=== PATIENT | female | born 1935 | race Caucasian/White ===

== ENCOUNTER → 2016-05-14 | Outpatient (CLI) | payer OTHER, MEDICARE ==
[2016-02-29 17:13] VITALS: BP 133/71
[2016-05-14 09:58] LABS: ALANINE AMINOTRANSFERASE 85 Units/L (12-78); ALBUMIN 3.3 g/dL (3.4-5.0); ALKALINE PHOSPHATASE 246 Units/L (46-116); ASPARTATE AMINO TRANSFERASE 69 Units/L (15-37); BLOOD UREA NITROGEN 24 mg/dL (7-18); CALCIUM 8.1 mg/dL (8.5-10.1); CARBON DIOXIDE 29.1 mmol/L (21-32); CHLORIDE 106 mmol/L (98-107); COR CA(FOR HYPOALB) 8.7 mg/dL (8.5-10.1); GLUCOSE 106 mg/dL (65-99); SODIUM 141 mmol/L (136-145); TOTAL PROTEIN 6.9 g/dL (6.4-8.2); eGFR BLACK RACES 56 (>60); eGFR NON BLACK RACES 46 (>60)
[2016-05-14 10:01] LABS: BASOPHILS % (AUTO) 0.9 % (0.2-1.0); EOSINOPHILS # (AUTO) 0.1 x10^3/uL (0.0-0.2); EOSINOPHILS % (AUTO) 2.4 % (0.9-2.9); HEMATOCRIT 29.2 % (36.0-47.0); HEMOGLOBIN 9.5 g/dL (12.0-16.0); LYMPHOCYTES # (AUTO) 0.8 X10^3/uL (1.3-2.9); LYMPHOCYTES % (AUTO) 14.8 % (21.0-51.0); MEAN CORPUSCULAR HEMOGLOBIN 28.5 pg (27.0-34.0); MEAN CORPUSCULAR HGB CONC 32.5 g/dL (33.0-35.0); MEAN CORPUSCULAR VOLUME 87.7 fL (80.0-100.0); MEAN PLATELET VOLUME 7.6 fL (7.4-11.0); MONOCYTES # (AUTO) 0.5 x10^3/uL (0.3-0.8); MONOCYTES % (AUTO) 9.4 % (0.0-13.0); NEUTROPHILS # (AUTO) 3.8 x10^3/uL (2.2-4.8); NEUTROPHILS % (AUTO) 72.5 % (42.0-75.0); PLATELET COUNT 188 X10^3/uL (150.0-450.0); RED BLOOD COUNT 3.33 X10^6/uL (3.5-5.4); WHITE BLOOD COUNT 5.2 X10^3/uL (3.6-10.0)
--- NOTE | 2016-05-14 10:02 | RAD ---
HISTORY: Cough Study: Two views of the chest Comparison: 02/29/2016 Findings: Stable cardiomegaly, sternotomy changes, and dual-chamber pacemaker. There are interstitial opacitie s seen throughout the lungs, similar to prior exam. No pneumothorax or pleural effusion. There are c hronic degenerative changes of the bony thorax. IMPRESSION: 1. Stable cardiomegaly and chronic interstitial opacities throughout the lungs. Reported By:
== END ==
LOC: RAD 09:03
PROVIDERS: ATTEND Internal Medicine
DX: R05 Cough (principal); R09.89 Other specified symptoms and signs involving the circulatory and respiratory systems; R60.1 Generalized edema
CPT/HCPCS: 36415; 71020; 80053; 85025

== ENCOUNTER → 2016-06-01 | Outpatient (CLI) | payer OTHER, MEDICARE ==
[2016-02-29 17:13] VITALS: BP 133/71
== END ==
LOC: RT 16:19
PROVIDERS: ATTEND Internal Medicine
DX: R00.8 Other abnormalities of heart beat (principal)
CPT/HCPCS: 93005

== ENCOUNTER 2016-06-09 15:29 | Observation (INO) | payer OTHER, MEDICARE ==
[2016-06-09 18:08] VITALS: BMI 34.2
[2016-06-09] MEDS: D5W 1000 ML IV 1,000 ML IV SCH (18:14)
[2016-06-09] MEDS ORDERED: TUMS PO PRN (22:27)
[2016-06-09] MEDS ORDERED: DUONEB 0.5 MG/3 MG NEB PRN (22:33)
[2016-06-09] MEDS ORDERED: ZOFRAN TAB 4 MG PO PRN (22:39)
[2016-06-09] MEDS: LASIX PO SCH (23:10)
[2016-06-09] MEDS: NORCO 10/325 TAB PO SCH (23:10)
[2016-06-09] MEDS: REMERON PO SCH (23:11)
[2016-06-09] MEDS: PEPCID TAB 20 MG PO SCH (23:11)
[2016-06-09] MEDS: CRESTOR TAB 10 MG PO SCH (23:11)
[2016-06-09] MEDS: ATIVAN TAB 0.5 MG PO SCH (23:11)
[2016-06-09] MEDS: NAMENDA TAB 10 MG PO SCH (23:11)
[2016-06-09] MEDS: ELIQUIS PO SCH (23:11)
[2016-06-09] MEDS: ZOLOFT PO SCH (23:19)
[2016-06-10 05:18] LABS: BILIRUBIN,URINE NEGATIVE (NEGATIVE); BLOOD/HEMOGLOBIN,URINE 2+ (NEGATIVE); GLUCOSE, URINE NEGATIVE (NEGATIVE); KETONES,URINE NEGATIVE (NEGATIVE); LEUKOCYTE ESTERASE ,URINE 1+ (NEGATIVE); NITRITES,URINE NEGATIVE (NEGATIVE); PROTEIN,URINE 3+ (NEGATIVE); UROBILINOGEN,URINE NORMAL (NORMAL)
[2016-06-10 05:32] LABS: APPEARANCE,URINE CLEAR (CLEAR); BACTERIA,URINE TRACE /HPF (NEGATIVE); COLOR,URINE YELLOW (YELLOW); RBC,URINE 0-3 /HPF (NEGATIVE); SQUAMOUS EPITHELIAL CELL,UR FEW /HPF (NEGATIVE)
[2016-06-10 06:19] LABS: ALANINE AMINOTRANSFERASE 58 Units/L (12-78); ALBUMIN 3.2 g/dL (3.4-5.0); ALKALINE PHOSPHATASE 299 Units/L (46-116); ASPARTATE AMINO TRANSFERASE 64 Units/L (15-37); BLOOD UREA NITROGEN 23 mg/dL (7-18); CALCIUM 8.1 mg/dL (8.5-10.1); CARBON DIOXIDE 28.2 mmol/L (21-32); CHLORIDE 108 mmol/L (98-107); COR CA(FOR HYPOALB) 8.7 mg/dL (8.5-10.1); CREATININE 1.07 mg/dL (0.55-1.02); GLUCOSE 98 mg/dL (65-99); SODIUM 146 mmol/L (136-145); TOTAL PROTEIN 6.9 g/dL (6.4-8.2); eGFR BLACK RACES > 60 (>60); eGFR NON BLACK RACES 53 (>60)
[2016-06-10 06:25] LABS: BASOPHILS # (AUTO) 0.1 X10^3/uL (0.0-0.1); BASOPHILS % (AUTO) 2.2 % (0.2-1.0); EOSINOPHILS # (AUTO) 0.3 x10^3/uL (0.0-0.2); EOSINOPHILS % (AUTO) 5.6 % (0.9-2.9); HEMATOCRIT 34.1 % (36.0-47.0); HEMOGLOBIN 10.7 g/dL (12.0-16.0); LYMPHOCYTES # (AUTO) 1.1 X10^3/uL (1.3-2.9); LYMPHOCYTES % (AUTO) 20.9 % (21.0-51.0); MEAN CORPUSCULAR HEMOGLOBIN 28.2 pg (27.0-34.0); MEAN CORPUSCULAR HGB CONC 31.5 g/dL (33.0-35.0); MEAN CORPUSCULAR VOLUME 89.7 fL (80.0-100.0); MEAN PLATELET VOLUME 8.4 fL (7.4-11.0); MONOCYTES # (AUTO) 0.5 x10^3/uL (0.3-0.8); MONOCYTES % (AUTO) 10.1 % (0.0-13.0); NEUTROPHILS # (AUTO) 3.2 x10^3/uL (2.2-4.8); NEUTROPHILS % (AUTO) 61.2 % (42.0-75.0); PLATELET COUNT 201 X10^3/uL (150.0-450.0); RED CELL DISTRIBUTION WIDTH 18.5 % (11.6-16.5); WHITE BLOOD COUNT 5.2 X10^3/uL (3.6-10.0)
[2016-06-10] MEDS: D5W 1000 ML IV 1,000 ML IV SCH (06:30)
[2016-06-10] MEDS: CARDIZEM SR 120 MG PO SCH (09:08)
[2016-06-10] MEDS: PEPCID TAB 20 MG PO SCH ×2 (09:08→21:24)
[2016-06-10] MEDS: K-DUR TAB 20 MEQ PO SCH (09:09)
[2016-06-10] MEDS: ATIVAN TAB 0.5 MG PO SCH ×2 (09:09→21:24)
[2016-06-10] MEDS: NAMENDA TAB 10 MG PO SCH ×2 (09:09→21:24)
[2016-06-10] MEDS: ZOLOFT PO SCH ×2 (09:09→21:25)
[2016-06-10] MEDS: ELIQUIS PO SCH ×2 (09:09→21:24)
[2016-06-10] MEDS: LASIX PO SCH ×2 (09:09→21:24)
[2016-06-10] MEDS: TOPROL XL PO SCH (09:09)
--- NOTE | 2016-06-10 13:01 | DR.H&P ---
H&P - History & Physical for Day of: H&P Date: 06/09/16 - Chief Complaint Chief Complaint: HYPERNATREMIA - Allergies Allergies/Adverse Reactions: Allergies Allergy/AdvReac Type Severity Reaction Status Date / Time Ciprofloxacin [From Cipro] Allergy Verified 01/29/16 14:14 Clonazepam [From Klonopin] Allergy Verified 01/29/16 14:14 Gabapentin [From Neurontin] Allergy Verified 01/29/16 14:14 Methylprednisolone Allergy Verified 01/29/16 14:14 [From Medrol] Oxycodone [From Roxicet] Allergy Verified 01/29/16 14:14 Sulfa Drugs Allergy Verified 01/29/16 14:14 Morphine AdvReac Verified 01/29/16 14:14 - History of Present Illness History of Present Illness: THIS IS A 81 YEAR OLD FEMALE, WHO IS A PATIENT OF OURS. SHE RESIDES AT [facility]. PATIENT IS DIRECT ADMITTED TO HOSPITAL FOR HYPERNATREMIA. STAFF REPORTS PATIENT'S APPETITE IS POOR AND PATIENT ORAL INTAKE IS DECREASED. SHE WAS ALSO NOTED WITH ALTERED MENTAL STATUS AND CONFUSION. LABS OBTAINED TODAY AND SODIUM WAS NOTED TO BE CRITICALLY HIGH AT 150. CBC WNL EXCEPT: HGB 11.3. CMP WNL EXCEPT: SODIUM 150, CHL 111, BUN/CREAT 25/1.17, GFR 47, CALCIUM 8.4, AST 68, ALK PHOS 312. URINALYSIS WNL. WE WILL ADMIT PATIENT FOR FURTHER EVALUATION AND TREATMENT OF DEHYDRATION AND HYPERNATREMIA. WE WILL START IV FLUIDS: D5W AT 75MLS/HR, CONTINUE TO MONITOR NEURO STATUS, AND MONITOR LABS IN AM. - Past Medical History Past Medical History: Anemia, Anxiety, CHF, Coronary Artery Disease, Dementia, Depression, Dyslipidemia, GERD, Hypertension Additional Medical History: Cataracts, Atrial fibrillation, Alzheimers diease, Atrial Fibrillation, Sleep Apnea, Previous blood transfusion - Past Surgical History Surgical History: CABG/Valve Surgery, Hysterectomy, Joint Replacement, Ortho Surgery Additional Surgical History: Pacemaker - Family History Family Medical History: Diabetes Mellitus, Cancer, Hypertension - Social History Does patient currently use any type of tobacco product: No Have you used tobacco products in the last 12 months: No Type of Tobacco Use: None Does any household member use tobacco: No Alcohol Use: None Drug Use: Prescription Drugs - Medications Home Medications: Calcium Carbonate (Antacid) [Tums] 3 tabs PO Q4H PRN 01/29/16 Famotidine [PEPCID TAB 20 MG *] 1 tab PO BID 01/29/16 Furosemide 2 tab PO BID 01/29/16 Hydrocodone-Acet 10/325 mg [NORCO 10 MG/325 MG *] 1 tab PO HS 01/29/16 Lorazepam [ATIVAN 0.5 MG TAB *] 1 tab PO BID 01/29/16 Memantine HCl [Namenda] 1 tab PO BID 01/29/16 Metoprolol Succinate Ext Rel [TOPROL XL 50 MG *] 1 tab PO DAILY 01/29/16 Ondansetron HCl [ZOFRAN TAB 4 MG *] 1 tab PO Q4-6H PRN 01/29/16 Potassium Chloride [Potassium Chloride ER] 1 tab PO DAILY 01/29/16 Rosuvastatin Calcium [Crestor] 20 mg PO HS 01/29/16 Sertraline HCl [Zoloft 25 mg] 2 tab PO BID 01/29/16 Apixaban [Eliquis] 5 mg PO BID 06/09/16 Diltiazem HCl Coated Beads [Cardizem Cd (24 hr)] 120 mg PO Q24H 06/09/16 Ipratropium/Albuterol Nebule [DUONEB 0.5 MG/3 MG NEBULE *] 0.5 - 2.5 mg INH Q4HR PRN 06/09/16 Mirtazapine [REMERON 15 MG *] 15 mg PO HS 06/09/16 - Review of Systems Constitutional: Weakness, Malaise Eyes: No Symptoms Reported. denies: Pain, Vision Change, Conjunctivae Inflammation, Eyelid Inflammation, Redness ENT: No Symptoms Reported. denies: Ear Pain, Ear Discharge, Nose Pain, Nose Discharge, Nose Congestion, Mouth Pain, Mouth Swelling, Throat Pain, Throat Swelling Respiratory: No Symptoms Reported. denies: Cough, Shortness of Breath, Hemoptysis, SOB with Excertion, Pleuritic Pain, Sputum, Wheezing Cardiovascular: No Symptoms Reported. denies: Chest Pain, Palpitations, Orthopnea, Paroxysmal Noc. Dyspnea, Edema, Light Headedness Gastrointestinal: No Symptoms Reported. denies: Nausea, Vomiting, Abdominal Pain, Diarrhea, Constipation, Melena, Hematochezia Genitourinary: No Symptoms Reported. denies: Dysuria, Frequency, Incontinence, Hematuria, Retention Musculoskeletal: No Symptoms Reported. denies: Shoulder Pain, Arm Pain, Back Pain, Hand Pain, Leg Pain, Foot Pain, Neck Pain Skin: No Symptoms Reported. denies: Rash, Lesions, Jaundice, Bruising, Wound, Ecchymosis Neurological: Weakness, Confusion. denies: Numbness, Incoordination, Change in Speech, Seizures - Physical Exam Vital Signs: Temperature 99.2 F Pulse Rate [Right Brachial] 84 Respiratory Rate 22 Blood Pressure [Left Arm] 112/67 Blood Pressure [Right Arm] 131/78 Blood Pressure 133/71 O2 Sat by Pulse Oximetry 98 Oriented: Person Eyes: Normal. negative: Blurred Vision, Diplopia, Discharge, Pain, Redness, Photophobia Ear: Normal. negative: Swelling, Ecchymosis, Hemotypanum, Abrasion, Laceration Nose: Normal. negative: Injected, Discharge, Blood Throat: Dry. negative: Tonsillar Hypertrophy, Exudate Respiratory: Clear Throughout Cardiovascular: Irregular (Irreg, irreg). negative: Murmur, Edema Auscultation: Bowel Sounds: Decreased. negative: Bruit Palpation: Normal. negative: Spleen Enlarged, Liver Enlarged, Mass Pulsatile Tenderness: Normal. negative: Rebound, Guarding, Rigidity Skin: Decreased Turgur. negative: Diaphoresis, Wound, Bruising Musculoskeletal: Instability Psychiatric: Other (Confusion) Mood Description: Calm Affect: Normal Speech Pattern: Clear, Inappropriate - Assessment/Plan (1) Hypernatremia Status: Acute Plan: ADMIT PATIENT, START IV FLUIDS D5W AT 75MLS/HR, MONITOR LABS. (2) Dehydration Status: Acute Plan: ABOVE. (3) Altered mental state Qualifiers: Altered mental status type: disorientation Coma depth: C Coma timing: C Qualified Code(s): R41.0 - Disorientation, unspecified Status: Acute Plan: START IV FLUIDS, CONTINUE TO MONITOR. (4) CHF (congestive heart failure) Qualifiers: Congestive heart failure type: diastolic Congestive heart failure chronicity: chronic Qualified Code(s): I50.32 - Chronic diastolic (congestive ) heart failure Status: Chronic (5) Anxiety Status: Chronic (6) Arthritis Status: Chronic (7) COPD (chronic obstructive pulmonary disease) Qualifiers: COPD type: C Chronic bronchitis type: C Emphysema type: E Status: Chronic (8) Coronary artery disease Qualifiers: Coronary Disease-Associated Artery/Lesion type: [place] artery [place] vs. transplanted heart: [place] heart Associated angina: without angina Qualified Code(s): I25.10 - Atherosclerotic heart disease of [place] coronary artery without angina pectoris Status: Chronic (9) Dementia Qualifiers: Dementia type: Alzheimer's disease Alzheimer's disease onset: early-onset Dementia behavioral disturbance: without behavioral disturbance Qualified Code(s): G30.0 - Alzheimer's disease with early onset; F02.80 - Dementia in other diseases classified elsewhere without behavioral disturbance Status: Chronic (10) Depression Qualifiers: Depression Type: major depressive disorder Major depression recurrence: recurrent Active/Remission status: currently active Major depression episode severity: moderate Psychotic features: P Trimester: T Qualified Code(s): F33.1 - Major depressive disorder, recurrent, moderate Status: Chronic (11) GERD (gastroesophageal reflux disease) Qualifiers: Esophagitis presence: esophagitis presence not specified Qualified Code(s) : K21.9 - Gastro-esophageal reflux disease without esophagitis Status: Chronic (12) History of atrial fibrillation Status: Chronic (13) Hyperlipidemia Qualifiers: Hyperlipidemia type: mixed hyperlipidemia Qualified Code(s): E78.2 - Mixed hyperlipidemia Status: Chronic (14) Hypertension Qualifiers: Hypertension type: essential hypertension Qualified Code(s): I10 - Essential (primary) hypertension Status: Chronic (15) Pacemaker Status: Chronic
--- NOTE | 2016-06-10 13:25 | PCM.PROG ---
Progress Note - Progress Note for Day of Date: 06/10/16 - Subjective Subjective: PATIENT IS RESTING IN BED, DROWSY. SHE CONTINUES WITH INTERMITTENT CONFUSION. PATIENT CONTINUES ON IV FLUIDS FOR HYPERNATREMIA AND DEHYDRATION. SODIUM HAS IMPROVED FROM 150 TO 146. LUNGS ARE CLEAR ON AUSCULTATION. CBC WNL EXCEPT: H/H 10.7/34.1. CMP WNL EXCEPT: SODIUM 146, CHL 108, BUN/CREAT 23/1.07, GFR 53, CALCIUM 8.1, AST 64, ALK PHOS 299, ALBUMIN 3.2. WE WILL CONTINUE IV FLUIDS AND CONTINUE TO MONITOR LABS. WE WILL PLAN FOR DISCHARGE IN AM PROVIDING SODIUM IS WNL AND PATIENT IS STABLE. - Past Medical Family Social History Past Med/Fam/Surg Hx: No changes since H&P Allergies: Allergies Ciprofloxacin [From Cipro] Allergy (Verified 01/29/16 14:14) Clonazepam [From Klonopin] Allergy (Verified 01/29/16 14:14) Gabapentin [From Neurontin] Allergy (Verified 01/29/16 14:14) Methylprednisolone [From Medrol] Allergy (Verified 01/29/16 14:14) Oxycodone [From Roxicet] Allergy (Verified 01/29/16 14:14) Sulfa Drugs Allergy (Verified 01/29/16 14:14) Morphine Adverse Reaction (Verified 01/29/16 14:14) - Review of Systems ROS: No change since H&P - Vital Signs and I&O's Vital Signs: Temperature 99.2 F Pulse Rate [Right Brachial] 84 Respiratory Rate 22 Blood Pressure [Left Arm] 112/67 Blood Pressure [Right Arm] 131/78 Blood Pressure 133/71 O2 Sat by Pulse Oximetry 98 Intake and Output: Intake & Output 06/08/16 06/09/16 06/10/16 06/11/16 11:59 11:59 11:59 11:59 Intake Total 1312 Output Total 500 Balance 812 - Physical Exam Oriented: Person Eyes: Normal. negative: Blurred Vision, Diplopia, Discharge, Pain, Redness, Photophobia Ear: Normal. negative: Swelling, Ecchymosis, Hemotypanum, Abrasion, Laceration Nose: Normal. negative: Injected, Discharge, Blood Throat: Dry. negative: Tonsillar Hypertrophy, Exudate Respiratory: Normal Cardiovascular: Irregular (Irreg, irreg). negative: Murmur, Edema Auscultation: Bowel Sounds: Decreased. negative: Bruit Palpation: Normal. negative: Spleen Enlarged, Liver Enlarged, Mass Pulsatile Tenderness: Normal. negative: Rebound, Guarding, Rigidity Skin: Decreased Turgur. negative: Diaphoresis, Wound, Bruising Musculoskeletal: Instability Psychiatric: Other (Confusion) Mood Description: Calm Affect: Normal Speech Pattern: Clear, Inappropriate - Laboratory and Diagnostics Result Diagrams: 06/10/16 05:00 06/10/16 05:00 Labs: Laboratory WBC 5.2 X10^3/uL (3.6-10.0) 06/10/16 05:00 RBC 3.80 X10^6/uL (3.5-5.4) 06/10/16 05:00 Hgb 10.7 g/dL (12.0-16.0) L 06/10/16 05:00 Hct 34.1 % (36.0-47.0) L 06/10/16 05:00 MCV 89.7 fL (80.0-100.0) 06/10/16 05:00 MCH 28.2 pg (27.0-34.0) 06/10/16 05:00 MCHC 31.5 g/dL (33.0-35.0) L 06/10/16 05:00 RDW 18.5 % (11.6-16.5) H 06/10/16 05:00 Plt Count 201 X10^3/uL (150.0-450.0) 06/10/16 05:00 MPV 8.4 fL (7.4-11.0) 06/10/16 05:00 Neut % 61.2 % (42.0-75.0) 06/10/16 05:00 Lymph % 20.9 % (21.0-51.0) L 06/10/16 05:00 [place]mullen % 10.1 % (0.0-13.0) 06/10/16 05:00 Eos % 5.6 % (0.9-2.9) H 06/10/16 05:00 Baso % 2.2 % (0.2-1.0) H 06/10/16 05:00 Neut # 3.2 x10^3/uL (2.2-4.8) 06/10/16 05:00 Lymph # 1.1 X10^3/uL (1.3-2.9) L 06/10/16 05:00 [place]mullen # 0.5 x10^3/uL (0.3-0.8) 06/10/16 05:00 Eos # 0.3 x10^3/uL (0.0-0.2) H 06/10/16 05:00 Baso # 0.1 X10^3/uL (0.0-0.1) 06/10/16 05:00 Absolute Nucleated RBC 0.1 /100WBC 06/10/16 05:00 Sodium 146 mmol/L (136-145) H 06/10/16 05:00 Corrected Sodium TNP 06/10/16 05:00 Potassium 3.5 mmol/L (3.5-5.1) 06/10/16 05:00 Chloride 108 mmol/L (98-107) H 06/10/16 05:00 Carbon Dioxide 28.2 mmol/L (21-32) 06/10/16 05:00 BUN 23 mg/dL (7-18) H 06/10/16 05:00 Creatinine 1.07 mg/dL (0.55-1.02) H 06/10/16 05:00 Est GFR (MDRD) Af Amer > 60 (>60) 06/10/16 05:00 Est GFR (MDRD) Non-Af 53 (>60) L 06/10/16 05:00 Glucose 98 mg/dL (65-99) 06/10/16 05:00 Calcium 8.1 mg/dL (8.5-10.1) L 06/10/16 05:00 Corrected Calcium 8.7 mg/dL (8.5-10.1) 06/10/16 05:00 Total Bilirubin 0.80 mg/dL (0.2-1.0) 06/10/16 05:00 AST 64 Units/L (15-37) H 06/10/16 05:00 ALT 58 Units/L (12-78) 06/10/16 05:00 Alkaline Phosphatase 299 Units/L (46-116) H 06/10/16 05:00 Total Protein 6.9 g/dL (6.4-8.2) 06/10/16 05:00 Albumin 3.2 g/dL (3.4-5.0) L 06/10/16 05:00 Globulin 3.7 g/dL (2.5-4.5) 06/10/16 05:00 Albumin/Globulin Ratio 0.9 Ratio (1.1-2.1) L 06/10/16 05:00 Specimen Type Clean catch urine 06/10/16 04:52 Urine Color Yellow (YELLOW) 06/10/16 04:52 Urine Appearance Clear (CLEAR) 06/10/16 04:52 Urine pH 6.0 (5.0 - 8.0) 06/10/16 04:52 Ur Specific [place] 1.015 (1.000-1.030) 06/10/16 04:52 Urine Protein 3+ (NEGATIVE) 06/10/16 04:52 Urine Glucose (UA) Negative (NEGATIVE) 06/10/16 04:52 Urine Ketones Negative (NEGATIVE) 06/10/16 04:52 Urine Occult Blood 2+ (NEGATIVE) 06/10/16 04:52 Urine Nitrite Negative (NEGATIVE) 06/10/16 04:52 Urine Bilirubin Negative (NEGATIVE) 06/10/16 04:52 Urine Urobilinogen Normal (NORMAL) 06/10/16 04:52 Ur Leukocyte Esterase 1+ (NEGATIVE) 06/10/16 04:52 Urine RBC 0-3 /HPF (NEGATIVE) 06/10/16 04:52 Urine WBC 3-5 /HPF (NEGATIVE) 06/10/16 04:52 Ur Squamous Epith Cells Few /HPF (NEGATIVE) 06/10/16 04:52 Urine Bacteria Trace /HPF (NEGATIVE) 06/10/16 04:52 Ur Culture Indicated? No/not indicated 06/10/16 04:52 - Plan (1) Hypernatremia Status: Acute Plan: CONTINUE IV FLUIDS D5W AT 75MLS/HR, MONITOR LABS. (2) Dehydration Status: Acute Plan: ABOVE. (3) Altered mental state Status: Acute Qualifiers: Altered mental status type: disorientation Coma depth: C Coma timing: C Qualified Code(s): R41.0 - Disorientation, unspecified Plan: CONTINUE IV FLUIDS, CONTINUE TO MONITOR. (4) CHF (congestive heart failure) Status: Chronic Qualifiers: Congestive heart failure type: diastolic Congestive heart failure chronicity: chronic Qualified Code(s): I50.32 - Chronic diastolic (congestive ) heart failure (5) Anxiety Status: Chronic (6) Arthritis Status: Chronic (7) COPD (chronic obstructive pulmonary disease) Status: Chronic Qualifiers: COPD type: C Chronic bronchitis type: C Emphysema type: E (8) Coronary artery disease Status: Chronic Qualifiers: Coronary Disease-Associated Artery/Lesion type: [place] artery [place] vs. transplanted heart: [place] heart Associated angina: without angina Qualified Code(s): I25.10 - Atherosclerotic heart disease of [place] coronary artery without angina pectoris (9) Dementia Status: Chronic Qualifiers: Dementia type: Alzheimer's disease Alzheimer's disease onset: early-onset Dementia behavioral disturbance: without behavioral disturbance Qualified Code(s): G30.0 - Alzheimer's disease with early onset; F02.80 - Dementia in other diseases classified elsewhere without behavioral disturbance (10) Depression Status: Chronic Qualifiers: Depression Type: major depressive disorder Major depression recurrence: recurrent Active/Remission status: currently active Major depression episode severity: moderate Psychotic features: P Trimester: T Qualified Code(s): F33.1 - Major depressive disorder, recurrent, moderate (11) GERD (gastroesophageal reflux disease) Status: Chronic Qualifiers: Esophagitis presence: esophagitis presence not specified Qualified Code(s) : K21.9 - Gastro-esophageal reflux disease without esophagitis (12) History of atrial fibrillation Status: Chronic (13) Hyperlipidemia Status: Chronic Qualifiers: Hyperlipidemia type: mixed hyperlipidemia Qualified Code(s): E78.2 - Mixed hyperlipidemia (14) Hypertension Status: Chronic Qualifiers: Hypertension type: essential hypertension Qualified Code(s): I10 - Essential (primary) hypertension (15) Pacemaker Status: Chronic
[2016-06-10] MEDS: REMERON PO SCH (21:24)
[2016-06-10] MEDS: CRESTOR TAB 10 MG PO SCH (21:25)
[2016-06-10] MEDS: NORCO 10/325 TAB PO SCH (21:25)
[2016-06-11] MEDS: D5W 1000 ML IV 1,000 ML IV SCH ×2 (05:13→09:43)
[2016-06-11 06:15] LABS: BASOPHILS # (AUTO) 0.1 X10^3/uL (0.0-0.1); BASOPHILS % (AUTO) 1.5 % (0.2-1.0); EOSINOPHILS # (AUTO) 0.4 x10^3/uL (0.0-0.2); EOSINOPHILS % (AUTO) 6.9 % (0.9-2.9); HEMATOCRIT 34.2 % (36.0-47.0); LYMPHOCYTES # (AUTO) 0.7 X10^3/uL (1.3-2.9); LYMPHOCYTES % (AUTO) 13.8 % (21.0-51.0); MEAN CORPUSCULAR HEMOGLOBIN 28.6 pg (27.0-34.0); MEAN CORPUSCULAR VOLUME 89.4 fL (80.0-100.0); MEAN PLATELET VOLUME 8.2 fL (7.4-11.0); MONOCYTES # (AUTO) 0.5 x10^3/uL (0.3-0.8); MONOCYTES % (AUTO) 10.3 % (0.0-13.0); NEUTROPHILS # (AUTO) 3.6 x10^3/uL (2.2-4.8); NEUTROPHILS % (AUTO) 67.5 % (42.0-75.0); PLATELET COUNT 219 X10^3/uL (150.0-450.0); RED BLOOD COUNT 3.83 X10^6/uL (3.5-5.4); WHITE BLOOD COUNT 5.3 X10^3/uL (3.6-10.0)
[2016-06-11 06:34] LABS: ALANINE AMINOTRANSFERASE 54 Units/L (12-78); ALBUMIN 3.3 g/dL (3.4-5.0); ALKALINE PHOSPHATASE 299 Units/L (46-116); ASPARTATE AMINO TRANSFERASE 48 Units/L (15-37); BLOOD UREA NITROGEN 17 mg/dL (7-18); CALCIUM 7.9 mg/dL (8.5-10.1); CARBON DIOXIDE 26.4 mmol/L (21-32); CHLORIDE 104 mmol/L (98-107); COR CA(FOR HYPOALB) 8.5 mg/dL (8.5-10.1); CREATININE 1.06 mg/dL (0.55-1.02); GLUCOSE 97 mg/dL (65-99); SODIUM 141 mmol/L (136-145); TOTAL PROTEIN 7.1 g/dL (6.4-8.2); eGFR BLACK RACES > 60 (>60); eGFR NON BLACK RACES 53 (>60)
[2016-06-11] MEDS ORDERED: K-DUR TAB 20 MEQ PO PRN (07:24)
[2016-06-11] MEDS ORDERED: POTASSIUM CHLORIDE LIQ 20 MEQ UDC PO PRN (07:24)
[2016-06-11] MEDS ORDERED: K-RIDER 10 MEQ/NS 100 ML 10 MEQ/100 ML BAG IV PRN (07:24)
[2016-06-11] MEDS ORDERED: K-LYTE EFFERVESCENT PO PRN (07:24)
--- NOTE | 2016-06-11 08:34 | RAD ---
HISTORY: Hypernatremia Study: Single view of the chest. Comparison: 05/14/2016 Findings: Cardiomegaly. Possible left upper lobe pulmonary nodule not clearly seen on priors. No double focal consolidations or pleural effusions.. Osseous structures demonstrate no acute abnormality. IMPRESSION: 1. Question of left upper lobe spiculated pulmonary nodule . Recommend CT of the chest with contras t. Reported By:
[2016-06-11 09:09] VITALS: BP 137/53
[2016-06-11] MEDS: K-DUR TAB 20 MEQ PO SCH (09:32)
[2016-06-11] MEDS: NAMENDA TAB 10 MG PO SCH (09:32)
[2016-06-11] MEDS: ATIVAN TAB 0.5 MG PO SCH (09:32)
[2016-06-11] MEDS: PEPCID TAB 20 MG PO SCH (09:32)
[2016-06-11] MEDS: ELIQUIS PO SCH (09:34)
[2016-06-11] MEDS: TOPROL XL PO SCH (09:34)
[2016-06-11] MEDS: LASIX PO SCH (09:34)
[2016-06-11] MEDS: ZOLOFT PO SCH (09:34)
[2016-06-11] MEDS: CARDIZEM SR 120 MG PO SCH (09:42)
== END 2016-06-11 11:45 ==
LOC: UNDOADMOB 15:29 → ICU 15:29
PROVIDERS: ADMIT Internal Medicine; ATTEND Internal Medicine
DX: E87.0 Hyperosmolality and hypernatremia (principal); R41.0 Disorientation, unspecified; E86.0 Dehydration; I50.32 Chronic diastolic (congestive) heart failure; E87.5 Hyperkalemia; D64.89 Other specified anemias; F41.8 Other specified anxiety disorders; I25.10 Atherosclerotic heart disease of native coronary artery without angina pectoris; F32.89 Other specified depressive episodes; E78.2 Mixed hyperlipidemia; K21.9 Gastro-esophageal reflux disease without esophagitis; I10 Essential (primary) hypertension; M13.89 Other specified arthritis, multiple sites; J44.9 Chronic obstructive pulmonary disease, unspecified; G30.0 Alzheimer's disease with early onset; F02.80 Dementia in other diseases classified elsewhere, unspecified severity, without behavioral disturbance, psychotic disturbance, mood disturbance, and anxiety; F33.1 Major depressive disorder, recurrent, moderate; Z95.0 Presence of cardiac pacemaker; R94.4 Abnormal results of kidney function studies
CPT/HCPCS: 36415; 71010; 80053; 81001; 85025; A4216; A4222; G0378

== ENCOUNTER → 2016-06-14 | Outpatient (CLI) | payer OTHER, MEDICARE ==
[2016-06-11 09:09] VITALS: BP 137/53
[~2016-06-14] MED LIST: NS 100 ML IV 100 ML IV ONE
--- NOTE | 2016-06-14 13:38 | CT ---
HISTORY: Left upper lobe nodule Study: CT chest with contrast Comparison: Plain film June 11, 2016 Technique: Axial post-contrast images with coronal and sagittal reformats. Dose reduction procedures were use with MA/kv adjusted for body size. Findings: Examination of the mediastinum demonstrated no enlarged mediastinal or hilar adenopathy. Nonenlarged mediastinal nodes are present. Heart is enlarged. There is a small right pleural effusion present. Additionally there is reflux of contrast into the hepatic veins which can be seen in congestive hear t failure. No chest wall or axillary abnormality is identified. Those portions of the upper abdomina l organs visualized were within normal limits. Examination of the lung wilson demonstrated diffuse b ilateral ground-glass infiltrates which could be due to edema or infection. There do appear to be so me Jin's B lines present making edema the most likely diagnosis. A left upper lobe nodule is not confirmed. No nodules areas of consolidation masses peribronchial thickening or bronchiectasis is id entified. IMPRESSION: Left upper lobe nodule not confirmed Cardiomegaly with congestive heart failure as evidenced by interstitial edema and bilateral ground-g lass infiltrates most likely related to congestive heart failure Small right pleural effusion Reported By:
== END ==
LOC: RAD 10:21
PROVIDERS: ATTEND Internal Medicine
DX: R91.1 Solitary pulmonary nodule (principal)
CPT/HCPCS: 36415; 71260; 80053; 85025; A4222

== ENCOUNTER 2016-10-17 19:22 | Emergency (ER) | payer OTHER, MEDICARE ==
[2016-10-17 19:31] VITALS: BP 134/80; BMI 32.9
--- NOTE | 2016-10-17 20:32 | CT ---
Head CT without contrast Indication: Head injury Comparison: January 29, 2016 Technique: Helical images of the head were obtained without the use of intravenous contrast. Findings: There is a small subgaleal hematoma to the right posterior scalp without laceration or foreign body. No acute calvarial fracture is seen. The paranasal sinuses and mastoid air cells are clear. There is no CT evidence of acute infarct, hemorrhage, hydrocephalus, or significant mass effect. No extra-axial fluid collection is seen. There is diffuse age-appropriate brain atrophy with commensura te enlargement of the CSF spaces and associated chronic microangiopathic change. Atherosclerotic lit cifications of the intracranial vasculature persists. Bilateral lens extractions are again noted. Impression: Small subgaleal hematoma of the right posterior scalp. No acute intracranial abnormality or acute fr acture is identified. Reported By:
--- NOTE | 2016-10-17 20:36 | CT ---
Cervical spine CT without contrast Indication: Fall. Comparison: November 03, 2015 Technique: Helical images of the cervical spine were obtained without the use of intravenous contras t. Findings: There is straightening of the normal cervical lordosis with otherwise normal cervical spine alignmen t. Vertebral body heights are preserved and no cervical spine fracture is seen. There is advanced os teopenia and postsurgical change noted of C5-6 are there is a least partial bony ankylosis at these levels. The occipital condyles are intact. There is no asymmetric facet joint or disc space widening to suggest ligamentous injury. There is no prevertebral soft tissue swelling. There is mild moderat e multilevel discogenic degenerative change and degenerative facet arthropathy throughout the cervic al spine. The spinal canal is grossly patent. The visualized cervical soft tissues are unremarkable. The visualized lung apices demonstrate bilateral air trapping with right upper lobe pleural and par enchymal scarring with atelectasis. Impression: 1. No CT evidence of acute cervical spine injury. 2. cervical spondylosis and other chronic findings as above. Reported By:
--- NOTE | 2016-10-17 20:41 | DR.GENAD ---
HPI - PCP Primary Care Physician: triny - Complaint/Symptoms Chief Complaint Doctors Comments: history as stated. 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 [facility] - Source History Provided: Detention - Mode of Arrival Mode of Arrival: Wheelchair - Timing Onset of Chief Complaint: 10/17/16 PMH - PMH Past Medical History: Yes Past Medical History: Anemia, Anxiety, CHF, Coronary Artery Disease, Dementia, Depression, Dyslipidemia, GERD, Hypertension Past Surgical History: Yes Surgical History: CABG/Valve Surgery, Hysterectomy, Joint Replacement, Ortho Surgery - Family History History of Family Medical Conditions: Yes Family Medical History: Diabetes Mellitus, Cancer, Hypertension - Social History Does patient currently use any type of tobacco product: No Have you used tobacco products in the last 12 months: No Type of Tobacco Use: None Does any household member use tobacco: No Alcohol Use: None Do you use any recreational Drugs:: No Lives With: Other Lives Where: Detention - infectious screening Have you traveled outside the country in the last 6 months?: No Isolation: Standard ROS - Review of Systems Constitutional: negative: Diaphoresis Eyes: No Symptoms Reported ENTM: No Symptoms Reported. negative: Ear Pain, Ear Discharge, Nose Discharge Respiratoy: No Symptoms Reported Cardiovascular: No Symptoms Reported Gastrointestinal/Abdominal: No Symptoms Reported Genitourinary: No Symptoms Reported Neurological: See HPI. negative: Seizure Musculoskeletal: Other (Right occipital hematoma) Integumentary: Bruises (scalp) Hematologic/Lymphatic: No Symptoms Reported Endocrine: No Symptoms Reported Psychiatric: No Symptoms Reported All Other Systems: Reviewed and Negative PE - Vital Signs Vitals: Temperature 99.4 F Pulse Rate 94 Respiratory Rate 22 Blood Pressure [Left Arm] 137/53 Blood Pressure [Right Arm] 120/72 Blood Pressure 134/80 O2 Sat by Pulse Oximetry 93 - General General Appearance: In No Apparent Distress - Head Head Exam: Other (right occipital area with a smooth hematoms w/o bleeding or skin abrasion) - Eyes Eye exam: PERRL, EOMI - ENT ENT Exam: Normal Exam External Ear Exam: Normal External Inspection TM/Canal Exam: Bilateral Normal Nose Exam: Normal Nose Exam Mouth Exam: Normal Inspection Throat Exam: Normal Inspection - Neck Neck Exam: Normal Inspection, Full ROM - Chest Chest Inspection: Normal Inspection - Respiratory Respiratory Exam: Normal Lung Sounds Bilat Respiratory Exam: Bilateral Clear to Auscultation - Cardiovascular Cardiovascular Exam: Regular Rate, Normal Rhythm - Abdominal Exam Abdominal Exam: Normal Inspection Abdominal Tenderness: negative: RUQ, RLQ, LUQ, LLQ, Epigastrium, Suprapubic, Diffuse, Mild, Moderate, Severe, Other - Extremities Extremities Exam: Normal Inspection - Back Back Exam: Normal Inspection - Neurologic Neurological Exam: Oriented X3 - Psychiatric Psychiatric Exam: Flat Affect - Skin Skin Exam: Warm, Dry, Intact ROR - XRAY XRAY Interpreted by: Radiologist (CT Head:Small subgaleal hematoma of the right posterior scalp. No acute intracranial abnormality or acute fracture is identified. Neck:No CT evidence of acute cervical spine injury, cervical spondylosis and other chronic finindgs:advanced osteopenia and postsurgical change noted of C5-6 are there is atleast partial bony ankylosis at these levels. The occipital condyles are intact. There is no asymmetric facet joint or disc space widening to suggest ligamentous injury. There is no prevertebral soft tissue swelling. There is mild moderate multilevel discogenic degenerative change and degenerative facet arthropathy throughout the cervical spine. The spinal canal is grossly patent...No CT evidence of acute cervical injury, ) - Diagnosis Discharge Problem: left posterior scalp hematoma Fall from wheelchair Qualifiers: Encounter type: initial encounter Qualified Code(s): W05.0XXA - Fall from non- moving wheelchair, initial encounter - Discharge Plan Disposition: 01 HOME, SELF-CARE Condition: Stable - Follow ups/Referrals Follow ups/Referrals: Gomez Tobias [Primary Care Provider] - 3 days - Instructions Instructions: Head Injury, Adult, [id number] Additional Instructions: NEURO CHECKS EVERY 2 HOURS FOR THE NEXT 12 HOURS
== END 2016-10-17 20:58 | disposition home or self-care (01) ==
LOC: ER 19:22
DX: S00.03XA Contusion of scalp, initial encounter (principal); M47.892 Other spondylosis, cervical region; W05.0XXA Fall from non-moving wheelchair, initial encounter; Y92.9 Unspecified place or not applicable; R51 Headache; R06.02 Shortness of breath; I50.9 Heart failure, unspecified
CPT/HCPCS: 36415; 70450; 72125; 80053; 83880; 85025; 99282; 99283

== ENCOUNTER 2016-11-06 08:49 | Observation (INO) | payer OTHER, MEDICARE ==
--- NOTE | 2016-11-06 09:37 | DR.GENAD ---
HPI - PCP Primary Care Physician: AMALIA MCCONNELL - Complaint/Symptoms Chief Complaint Doctors Comments: Patient fell yesterday and they x-rayed her right wrist and said it was not broken but she is still guarding her right arm and hand and is complaining of right hip and upper right side pain as related by the group home staff. prison relates that the patient's speech is hard to understand and she has been more difficult to get orientated. Patient yells when right arm is moved. She sets up in bed but is not complaining of pain unless right arm and ribs are palpated. Chief Complaint:: TONH STATES " PT HAD A FALL YESTERDAY AND PT RIGHT WRIST AND AN XRAY PERFORMED AND STAFF STATES PT IS C/O RIGHT UPPER LUMBAR AND RIGHT HIP AND INCREASED CONFUSION AND STAFF IS UNABLE TO ORIENT HER AND THAT SHE IS SWELLING". Self Treatment fo Chief Complaint: PT IS GUARDING HER RIGHT ARM... AND HER SPEECH IS UNCLEAR AT TIMES,, - Nurses notes reviewed Nurses Notes Review: Yes - Source History Provided: Patient, [facility] - Mode of Arrival Mode of Arrival: Stretcher - Timing Onset of Chief Complaint: 11/05/16 Came on: Gradually - Duration Duration: Constant How lon Duration: Days - Location Location: right arm and right ribs and hip - Severity Severity: Moderate, Severe - Modifying Factors Worsens:: movement Improves:: nothing PMH - PMH Past Medical History: Yes Past Medical History: Anemia, Anxiety, CHF, Coronary Artery Disease, Dementia, Depression, Dyslipidemia, GERD, Hypertension Past Surgical History: Yes Surgical History: CABG/Valve Surgery, Hysterectomy, Joint Replacement, Ortho Surgery - Family History History of Family Medical Conditions: Yes Family Medical History: Diabetes Mellitus, Cancer, Hypertension - Social History Does patient currently use any type of tobacco product: No Have you used tobacco products in the last 12 months: No Type of Tobacco Use: None Does any household member use tobacco: No Alcohol Use: None Do you use any recreational Drugs:: No Lives Where: [facility] - infectious screening In the last 2 months have you had wt loss of >10#?: NO Have you had fever, night sweats or hemotysis?: No Have you traveled outside the country in the last 6 months?: No Isolation: Standard ROS - Review of Systems Constitutional: No Symptoms Reported. negative: See HPI, Chills, Diaphoresis, Fever, Malaise, Weakness, Irritable, Fatigue, Loss of Appetite, Other Eyes: No Symptoms Reported ENTM: No Symptoms Reported Respiratoy: No Symptoms Reported Cardiovascular: No Symptoms Reported. negative: See HPI, Chest Pain, Edema, Palpitations, Syncope, Cyanosis, Skin Mottling, Other Gastrointestinal/Abdominal: No Symptoms Reported. negative: See HPI, Abdominal Pain, Constipation, Diarrhea, Nausea, Vomiting, Food Intolerance, Other Genitourinary: No Symptoms Reported Neurological: No Symptoms Reported Musculoskeletal: Right, Arm, Wrist, Hip (right arm, hip and rib pain) Integumentary: No Symptoms Reported, Bruises (right forearm and wrist). negative: See HPI, Change in Color, Change in Hair/Nails, Dryness, Lesions, Lumps, Rash, Itching, Wound, Juandice, Other Hematologic/Lymphatic: No Symptoms Reported Endocrine: No Symptoms Reported Psychiatric: No Symptoms Reported PE - Vital Signs Vitals: Temperature 97.9 F Pulse Rate [Left Brachial] 79 Pulse Rate 110 Respiratory Rate 16 Blood Pressure [Left Arm] 163/81 Blood Pressure [Right Arm] 135/77 Blood Pressure 136/64 O2 Sat by Pulse Oximetry 100 - General Limitations: Altered Mental Status General Appearance: Lethargic, In Distress (mild) - Head Head Exam: Normal Inspection, Atraumatic, Normocephalic - Eyes Eye exam: Normal Appearance, PERRL, EOMI. negative: Scleral Icterus, Conjunctival Injection, Nystagmus, Miosis, Mydrasis, Periorbital Swelling, Periorbital Tenderness, Other - ENT ENT Exam: Normal Exam, Normal Oropharynx, Normal External Ear Exam, Mucous Membranes Moist, TM's Normal Bilaterally External Ear Exam: Normal External Inspection TM/Canal Exam: Bilateral Normal Nose Exam: Normal Nose Exam. negative: Sinus Tenderness, Nasal Deviation, Crepitus, Septal Hematoma, Laceration, Abrasion, Other Mouth Exam: Normal Inspection. negative: Drooling, Trismus, Lip Swelling, Tongue Elevation, Tongue Swelling, Laceration, Other Throat Exam: Normal Inspection. negative: Tonsillar Erythema (dental caries), Tonsillomegaly, Tonsillar Exudate, R Peritonsillar Mass, L Peritonsillar Mass, Muffled Voice, Other - Neck Neck Exam: Normal Inspection, Full ROM, Trachea Midline - Chest Chest Inspection: Normal Inspection, Symmetric Chest Wall Rise, Tenderness ( right lateral ribs tender on palpation) - Respiratory Respiratory Exam: Normal Lung Sounds Bilat Respiratory Exam: Bilateral Clear to Auscultation - Cardiovascular Cardiovascular Exam: Regular Rate, Normal Rhythm, Normal Heart Sounds - Abdominal Exam Abdominal Exam: Normal Inspection, Normal Bowel Sounds, Soft. negative: Distention, Tenderness, Guarding, Rebound, Rigidity, Dimnished Bowel Sounds, Hyperactive Bowel Sounds, Hypoactive Bowel Sounds, Organomegaly, Trauma, Incision, Ascites, Mass, Bruit, Pulsatile Mass, Hernia, Other Abdominal Tenderness: negative: RUQ, RLQ, LUQ, LLQ, Epigastrium, Suprapubic, Diffuse, Mild, Moderate, Severe, Other - Extremities Extremities Exam: Normal Inspection, Full ROM, Tenderness (right forearm, right hip and rib tender on palpation), Normal Capillary Refill - Back Back Exam: Normal Inspection, Full ROM. negative: Tenderness, (R) CVA Tenderness, (L) CVA Tenderness, Muscle Spasm, Paraspinal Tenderness, Vertebral Tenderness, Rashes, (R) Sciatic Notch Tenderness, (L) Sciatic Notch Tendern, (R ) Straight Leg Raise, (L) Straight Leg Raise, Other - Neurologic Neurological Exam: Alert, Reflexes Normal. negative: Oriented X3 (patient responds to pain), CN II-XII Intact (unable to evaluate), Normal Gait (gait not tested) - Psychiatric Psychiatric Exam: Normal Affect, Normal Mood - Skin Skin Exam: Warm, Dry, Intact, Normal Color Course - Consultation Called: 16:48 Call Returned: 16:48 (Dr. Terry to admit) - Education/Counseling Education/Counseling: Family Educated On: Treatment, Diagnosis, Needs for Follow Up ROR - Labs Reviewed Laboratory Results Reviewed?: Yes (all labs and x-ray results reviewed and discussed with patient.) Result Diagrams: 11/06/16 09:52 11/06/16 09:52 Laboratory: WBC 9.4 X10^3/uL (3.6-10.0) 11/06/16 09:52 RBC 3.79 X10^6/uL (3.5-5.4) 11/06/16 09:52 Hgb 10.6 g/dL (12.0-16.0) L 11/06/16 09:52 Hct 32.9 % (36.0-47.0) L 11/06/16 09:52 MCV 86.7 fL (80.0-100.0) 11/06/16 09:52 MCH 28.0 pg (27.0-34.0) 11/06/16 09:52 MCHC 32.3 g/dL (33.0-35.0) L 11/06/16 09:52 RDW 18.9 % (11.6-16.5) H 11/06/16 09:52 Plt Count 181 X10^3/uL (150.0-450.0) 11/06/16 09:52 MPV 7.9 fL (7.4-11.0) 11/06/16 09:52 Neut % 83.1 % (42.0-75.0) H 11/06/16 09:52 Lymph % 4.8 % (21.0-51.0) L 11/06/16 09:52 [place] % 11.2 % (0.0-13.0) 11/06/16 09:52 Eos % 0.1 % (0.9-2.9) L 11/06/16 09:52 Baso % 0.8 % (0.2-1.0) 11/06/16 09:52 Neut # 7.8 x10^3/uL (2.2-4.8) H 11/06/16 09:52 Lymph # 0.5 X10^3/uL (1.3-2.9) L 11/06/16 09:52 [place] # 1.1 x10^3/uL (0.3-0.8) H 11/06/16 09:52 Eos # 0.0 x10^3/uL (0.0-0.2) 11/06/16 09:52 Baso # 0.1 X10^3/uL (0.0-0.1) 11/06/16 09:52 Absolute Nucleated RBC 0.0 /100WBC 11/06/16 09:52 INR Target Range - 11/06/16 09:52 INR 2.38 (0.8-1.3) H 11/06/16 09:52 PTT 39.9 SECONDS (22.9-36.5) H 11/06/16 09:52 PTT Comment - 11/06/16 09:52 Sodium 143 mmol/L (136-145) 11/06/16 09:52 Corrected Sodium TNP 11/06/16 09:52 Potassium 3.8 mmol/L (3.5-5.1) 11/06/16 09:52 Chloride 103 mmol/L (98-107) 11/06/16 09:52 Carbon Dioxide 30.0 mmol/L (21-32) 11/06/16 09:52 BUN 18 mg/dL (7-18) 11/06/16 09:52 Creatinine 1.19 mg/dL (0.55-1.02) H 11/06/16 09:52 Est GFR (MDRD) Af Amer 56 (>60) L 11/06/16 09:52 Est GFR (MDRD) Non-Af 47 (>60) L 11/06/16 09:52 Glucose 109 mg/dL (65-99) H 11/06/16 09:52 Calcium 9.1 mg/dL (8.5-10.1) 11/06/16 09:52 Corrected Calcium TNP 11/06/16 09:52 Magnesium 2.1 mg/dL (1.7-2.9) 11/06/16 09:52 Total Bilirubin 1.30 mg/dL (0.2-1.0) H 11/06/16 09:52 AST 65 Units/L (15-37) H 11/06/16 09:52 ALT 41 Units/L (12-78) 11/06/16 09:52 Alkaline Phosphatase 383 Units/L (46-116) H 11/06/16 09:52 Creatine Kinase 84 Units/L (26-192) 11/06/16 09:52 CK-MB (CK-2) 1.3 ng/mL (0-4.0) 11/06/16 09:52 CK/CKMB % Calc 1.6 % (<4) 11/06/16 09:52 Troponin I < 0.02 ng/mL (0-1.5) 11/06/16 09:52 B-Natriuretic Peptide 603 pg/mL (0-79) H* 11/06/16 09:52 Total Protein 7.9 g/dL (6.4-8.2) 11/06/16 09:52 Albumin 3.6 g/dL (3.4-5.0) 11/06/16 09:52 Globulin 4.3 g/dL (2.5-4.5) 11/06/16 09:52 Albumin/Globulin Ratio 0.8 Ratio (1.1-2.1) L 11/06/16 09:52 Specimen Type Catherized urine 11/06/16 14:19 Urine Color Yellow (YELLOW) 11/06/16 14:19 Urine Appearance Clear (CLEAR) 11/06/16 14:19 Urine pH 6.5 (5.0 - 8.0) 11/06/16 14:19 Ur Specific [place] 1.010 (1.000-1.030) 11/06/16 14:19 Urine Protein 2+ (NEGATIVE) 11/06/16 14:19 Urine Glucose (UA) Negative (NEGATIVE) 11/06/16 14:19 Urine Ketones Negative (NEGATIVE) 11/06/16 14:19 Urine Occult Blood 1+ (NEGATIVE) 11/06/16 14:19 Urine Nitrite Negative (NEGATIVE) 11/06/16 14:19 Urine Bilirubin Negative (NEGATIVE) 11/06/16 14:19 Urine Urobilinogen 2+ (NORMAL) 11/06/16 14:19 Ur Leukocyte Esterase 1+ (NEGATIVE) 11/06/16 14:19 Urine RBC Rare /HPF (NEGATIVE) 11/06/16 14:19 Urine WBC 0 - 3 /HPF (NEGATIVE) 11/06/16 14:19 Ur Squamous Epith Cells Few /HPF (NEGATIVE) 11/06/16 14:19 Ur Renal Epithelial Cell Rare /HPF (NEGATIVE) 11/06/16 14:19 Amorphous Sediment Trace /HPF (NEGATIVE) 11/06/16 14:19 Urine Bacteria Negative /HPF (NEGATIVE) 11/06/16 14:19 Hyaline Casts Many /LPF (NEGATIVE) 11/06/16 14:19 Ur Culture Indicated? No/not indicated 11/06/16 14:19 - XRAY XRAY Interpreted by: Radiologist (CT brain: Advancing chronological age without acute intracranial abnormality) - Diagnosis Discharge Problem: Altered mental status, Congestive heart failure, Pulmonary edema, Pleural effusion, left, Closed fracture of right proximal radius, non displaced sacral fracture, Multiple fractures of ribs of right side - Discharge Plan Disposition: ADMITTED INPATIENT Condition: Stable - Follow ups/Referrals Follow ups/Referrals: Gomez Tobias [Primary Care Provider] - 3 days - Instructions
[2016-11-06] MEDS ORDERED: TORADOL 30 MG VIAL IVP STA (09:50)
[2016-11-06] MEDS ORDERED: TORADOL 30 MG VIAL ONE (09:51)
[2016-11-06 10:08] LABS: BASOPHILS # (AUTO) 0.1 X10^3/uL (0.0-0.1); BASOPHILS % (AUTO) 0.8 % (0.2-1.0); EOSINOPHILS % (AUTO) 0.1 % (0.9-2.9); HEMATOCRIT 32.9 % (36.0-47.0); HEMOGLOBIN 10.6 g/dL (12.0-16.0); LYMPHOCYTES # (AUTO) 0.5 X10^3/uL (1.3-2.9); LYMPHOCYTES % (AUTO) 4.8 % (21.0-51.0); MEAN CORPUSCULAR HGB CONC 32.3 g/dL (33.0-35.0); MEAN CORPUSCULAR VOLUME 86.7 fL (80.0-100.0); MEAN PLATELET VOLUME 7.9 fL (7.4-11.0); MONOCYTES # (AUTO) 1.1 x10^3/uL (0.3-0.8); MONOCYTES % (AUTO) 11.2 % (0.0-13.0); NEUTROPHILS # (AUTO) 7.8 x10^3/uL (2.2-4.8); NEUTROPHILS % (AUTO) 83.1 % (42.0-75.0); PLATELET COUNT 181 X10^3/uL (150.0-450.0); RED BLOOD COUNT 3.79 X10^6/uL (3.5-5.4); RED CELL DISTRIBUTION WIDTH 18.9 % (11.6-16.5); WHITE BLOOD COUNT 9.4 X10^3/uL (3.6-10.0)
[2016-11-06 10:27] LABS: BLOOD UREA NITROGEN 18 mg/dL (7-18); CALCIUM 9.1 mg/dL (8.5-10.1); CHLORIDE 103 mmol/L (98-107); CREATININE 1.19 mg/dL (0.55-1.02); SODIUM 143 mmol/L (136-145); TROPONIN I < 0.02 ng/mL (0-1.5); eGFR BLACK RACES 56 (>60); eGFR NON BLACK RACES 47 (>60)
[2016-11-06 10:29] LABS: ALANINE AMINOTRANSFERASE 41 Units/L (12-78); ALBUMIN 3.6 g/dL (3.4-5.0); ALKALINE PHOSPHATASE 383 Units/L (46-116); ASPARTATE AMINO TRANSFERASE 65 Units/L (15-37); CKMB % 1.6 % (<4); CREATINE KINASE 84 Units/L (26-192); CREATINE KINASE MB 1.3 ng/mL (0-4.0); MAGNESIUM 2.1 mg/dL (1.7-2.9); TOTAL PROTEIN 7.9 g/dL (6.4-8.2)
--- NOTE | 2016-11-06 11:26 | CT ---
HISTORY: Fall with chest and right rib pain. Study: CT chest without contrast. Dose reduction techniques including Automated Exposure Control (AEC ) and adjustment of mA and kV were utilized. Comparison: June 14, 2016. Technique: Multiple axial images of the chest were obtained from the thoracic inlet to the upper abdo men without the administration of IV contrast. Findings: The included portions of the thyroid are grossly unremarkable. There is a dual lead cardiac pacing device on the left. There has been previous median sternotomy and CABG. 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 There is 4 chamber cardiac enlargement of the heart without pericardial effusi on. The thoracic aorta is normal in contour without aneurysmal dilatation. There are few prominent me diastinal lymph nodes which are not enlarged by size criteria and are thought to be reactive. The inc luded portions of the upper abdomen demonstrate the gallbladder to be surgically absent. There are co rtical offsets of the lateral 9th and 10th ribs on the right which may reflect minimally displaced fr actures. Evaluation of the lung parenchyma demonstrates a moderate size right pleural effusion. There is diffuse interstitial prominence throughout both lungs with associated subsegmental atelectasis. T here is no focal consolidation or evidence of pneumothorax. IMPRESSION: 1. Cardiomegaly with pulmonary edema pattern and moderate size right pleural effusion compatible wit h congestive heart failure. 2. Questionable minimally displaced fractures of the lateral 9th and 10th ribs on the right without p neumothorax. Correlation for point tenderness in this region is requested. 3. Post median sternotomy and CABG with dual lead cardiac pacing device and prosthetic mitral valve p resent. Reported By:
--- NOTE | 2016-11-06 11:34 | CT ---
HISTORY: Altered mental status. Fall yesterday. Study: CT brain without contrast. Dose reduction techniques including Automated Exposure Control (AE C) and adjustment of mA and kV were utilized. Comparison: October 17, 2016. Technique: Multiple axial images of the brain were obtained from the skull base to the vertex without administra tion of IV contrast. Findings: There is mild ventricular, as well as, sulcal and cisternal prominence, in addition to, at herosclerotic changes of the proximal intracranial carotid and vertebral arteries, which is not out o f proportion to the patient's chronological age. Scattered and confluent areas of periventricular, de ep and subcortical white matter hypoattenuation are noted bilaterally likely reflecting ischemic micr oangiopathy in a patient this age. No acute intraparenchymal hemorrhage or mass can be identified. N o extra-axial fluid collections are seen. No alteration in the attenuation of the brain parenchyma c an be identified to suggest acute or subacute ischemic change. The extracranial structures are shimon sly unremarkable. IMPRESSION: Changes of advancing chronological age without acute intracranial abnormality. Reported By:
--- NOTE | 2016-11-06 12:02 | CT ---
CT pelvis without contrast indication: Fall with right hip pain. Technique: 3 mm axial images of the pelvis with coronal and sagittal reformatted images provided with out IV contrast administration. Automated exposure control was per utilized for dose reduction. Findings: There is no fracture or dislocation of the right hip. No pubic symphysis or SI joint diasta ses. There is advanced facet arthropathy noted at L4-5 and L5-S1. SI joints demonstrate degenerative changes as well. There is no localizing soft tissue swelling. Urinary bladder is unremarkable. Small amount of presacral soft tissue swelling is noted likely in the setting of a nondisplaced fracture of the sacrum noted at the inferior sacrum/sacrococcygeal junction seen best on sagittal image 66. Impression: 1.Suspected buckle, nondisplaced fracture of the inferior sacrum/sacrococcygeal junction with presacr al soft tissue swelling. Correlation for point tenderness in this location is recommended. If clinica lly warranted sacral MRI can be performed for confirmation of acuity. 2.Neither hip demonstrates evidence of fracture or malalignment. No pubic symphysis or SI joint diast ases. Reported By:
[2016-11-06] MEDS ORDERED: LASIX IVP ONE ×2 (13:41→14:08)
[2016-11-06 14:28] LABS: BILIRUBIN,URINE NEGATIVE (NEGATIVE); BLOOD/HEMOGLOBIN,URINE 1+ (NEGATIVE); GLUCOSE, URINE NEGATIVE (NEGATIVE); KETONES,URINE NEGATIVE (NEGATIVE); LEUKOCYTE ESTERASE ,URINE 1+ (NEGATIVE); NITRITES,URINE NEGATIVE (NEGATIVE); PH,URINE 6.5 (5.0 - 8.0); PROTEIN,URINE 2+ (NEGATIVE); UROBILINOGEN,URINE 2+ (NORMAL)
[2016-11-06 14:58] LABS: APPEARANCE,URINE CLEAR (CLEAR); BACTERIA,URINE NEGATIVE /HPF (NEGATIVE); COLOR,URINE YELLOW (YELLOW); RBC,URINE RARE /HPF (NEGATIVE); SQUAMOUS EPITHELIAL CELL,UR FEW /HPF (NEGATIVE)
[2016-11-06 14:59] LABS: AMORPHOUS SEDIMENT,UR TRACE /HPF (NEGATIVE); HYALINE CASTS, URINE MANY /LPF (NEGATIVE); RENAL EPITHELIAL CELLS,URINE RARE /HPF (NEGATIVE)
--- NOTE | 2016-11-06 16:05 | RAD ---
History: Status post fall with right arm pain Technique: AP and lateral views of the right forearm Comparison:NONE Findings: There is generalized osteopenia. There is circumferential soft tissue swelling mal the mid to distal forearm and wrist. There is a transverse fracture through the distal radial metaphysis with questiona ble extension to the radiocarpal articulation. No significant displacement or angulation is appreciat ed. There is mild impaction. 2 mm metallic density foreign body seen within the soft tissues along th e volar aspect of the proximal forearm. There is chondrocalcinosis of the TFCC Impression: 1. Mildly impacted transverse fracture of the distal radial metaphysis. There is questionable extensi on into the radiocarpal articulation. Correlate with wrist radiographs. 2. 2 mm metallic density radiopaque foreign body within the soft tissues along the volar aspect of th e proximal forearm 3. Chondrocalcinosis Reported By:
--- NOTE | 2016-11-06 16:21 | RAD ---
History: Status post fall with right hand and wrist pain Technique: Three views of the right hand Comparison:NONE Findings: There is generalized osteopenia. There is soft tissue swelling along the ulnar aspect of the wrist. T here is a cortical regularity involving the medial aspect of the triquetrum consistent with a nondisp laced triquetrum fracture. There is chondrocalcinosis of the triangle fibrocartilage. Questionable yolande cency involving the ulnar aspect of the hamate at the hamate no triquetrum articulation. There is mul ti site moderate to severe osteoarthrosis involving multiple DIP and PIP joints. Chondrocalcinosis of the lunotriquetral ligament noted. Questionable cortical regularity of the ulnar styloid. A nondispl aced ulnar styloid fracture not entirely excluded. Severe osteoarthrosis of the 1st carpometacarpal a rticulation. Impression: 1. Probable fractures of the triquetrum and hamate. Further assessment with CT recommended, when clin ically feasible. 2. Questionable nondisplaced ulnar styloid fracture 3. Chondrocalcinosis. 4. Other findings as above Reported By:
[2016-11-06] MEDS ORDERED: TUMS PO PRN (16:55)
[2016-11-06] MEDS ORDERED: DEMEROL INJ ONE (17:10)
[2016-11-06] MEDS ORDERED: DEMEROL INJ IVP ONE (17:19)
[2016-11-06] MEDS: DILTIAZEM HCL 120 MG PO SCH (17:47)
[2016-11-06] MEDS: ELIQUIS PO SCH ×2 (21:24→21:28)
[2016-11-06] MEDS: PEPCID TAB 20 MG PO SCH ×2 (21:24→21:29)
[2016-11-06] MEDS: CRESTOR TAB 10 MG PO SCH ×2 (21:24→21:29)
[2016-11-06] MEDS: LASIX PO SCH ×2 (21:25→21:29)
[2016-11-07 04:43] VITALS: BMI 28.9
[2016-11-07 06:10] LABS: BASOPHILS # (AUTO) 0.1 X10^3/uL (0.0-0.1); BASOPHILS % (AUTO) 0.9 % (0.2-1.0); EOSINOPHILS # (AUTO) 0.1 x10^3/uL (0.0-0.2); EOSINOPHILS % (AUTO) 1.2 % (0.9-2.9); HEMATOCRIT 29.1 % (36.0-47.0); HEMOGLOBIN 9.5 g/dL (12.0-16.0); LYMPHOCYTES # (AUTO) 0.6 X10^3/uL (1.3-2.9); LYMPHOCYTES % (AUTO) 10.7 % (21.0-51.0); MEAN CORPUSCULAR HEMOGLOBIN 28.4 pg (27.0-34.0); MEAN CORPUSCULAR HGB CONC 32.6 g/dL (33.0-35.0); MEAN PLATELET VOLUME 8.3 fL (7.4-11.0); MONOCYTES # (AUTO) 0.8 x10^3/uL (0.3-0.8); MONOCYTES % (AUTO) 13.3 % (0.0-13.0); NEUTROPHILS # (AUTO) 4.3 x10^3/uL (2.2-4.8); NEUTROPHILS % (AUTO) 73.9 % (42.0-75.0); PLATELET COUNT 149 X10^3/uL (150.0-450.0); RED BLOOD COUNT 3.35 X10^6/uL (3.5-5.4); RED CELL DISTRIBUTION WIDTH 19.3 % (11.6-16.5); WHITE BLOOD COUNT 5.8 X10^3/uL (3.6-10.0)
[2016-11-07 06:31] LABS: ALANINE AMINOTRANSFERASE 38 Units/L (12-78); ALKALINE PHOSPHATASE 316 Units/L (46-116); ASPARTATE AMINO TRANSFERASE 56 Units/L (15-37); BLOOD UREA NITROGEN 20 mg/dL (7-18); CALCIUM 8.8 mg/dL (8.5-10.1); CHLORIDE 107 mmol/L (98-107); COR CA(FOR HYPOALB) 9.6 mg/dL (8.5-10.1); SODIUM 146 mmol/L (136-145); eGFR BLACK RACES 51 (>60); eGFR NON BLACK RACES 42 (>60)
[2016-11-07] MEDS: ELIQUIS PO SCH ×2 (10:03→22:14)
[2016-11-07] MEDS: PEPCID TAB 20 MG PO SCH ×2 (10:04→22:13)
[2016-11-07] MEDS: LASIX PO SCH ×2 (10:04→22:14)
[2016-11-07] MEDS: DEMEROL INJ IVP PRN ×3 (10:30→21:19)
[2016-11-07] MEDS ORDERED: ATIVAN TAB 0.5 MG PO PRN (11:01)
[2016-11-07] MEDS ORDERED: DUONEB 0.5 MG/3 MG NEB PRN ×2 (11:01→11:07)
[2016-11-07] MEDS: TOPROL XL PO SCH (11:09)
[2016-11-07] MEDS: NAMENDA TAB 10 MG PO SCH ×2 (11:09→22:14)
[2016-11-07] MEDS: MACROBID CAP 100 MG EXT REL PO SCH ×2 (11:09→22:14)
[2016-11-07] MEDS ORDERED: PATIENT'S HOME MEDICATION (Sertraline Hcl [Zoloft 25 Mg] 1 TAB) PO SCH (11:15)
[2016-11-07] MEDS: ZOLOFT PO SCH (13:14)
[2016-11-07] MEDS: EXELON PATCH 4.6 MG/24 HR TD SCH (13:43)
[2016-11-07] MEDS: DILTIAZEM HCL 120 MG PO SCH (17:00)
[2016-11-07] MEDS: NORCO 10/325 TAB PO SCH (22:10)
[2016-11-07] MEDS: CRESTOR TAB 10 MG PO SCH (22:10)
[2016-11-07] MEDS: REMERON PO SCH ×2 (22:12)
[2016-11-07] MEDS: DESYREL PO SCH (22:14)
--- NOTE | 2016-11-08 06:01 | RAD ---
HISTORY: Wheezing, shortness of breath Study: Single-view chest, done portably Comparison: October 18, [address] scan of the chest done November 06, 2016. Findings: Left-sided pacemaker is again seen with intact leads. There is again changes of thoracotomy with medi an sternotomy sutures. The trachea is midline. There is cardiomegaly with pulmonary vascular congesti on and signs of mild asymmetric pulmonary edema with more pronounced interstitial changes present in the right perihilar region extending laterally. Small right pleural effusion is present. No pneumotho rax is seen. Right-sided rib fractures are not as readily apparent as on the recent CT scan. Remainde r of osseous structures appear intact. IMPRESSION: Cardiomegaly with pulmonary vascular congestion and signs of CHF and mild asymmetric pulmonary edema with more pronounced interstitial markings seen on the right side as described. Small right pleural e ffusion. Continued followup as clinically indicated. Reported By:
[2016-11-08 06:17] LABS: BASOPHILS # (AUTO) 0.1 X10^3/uL (0.0-0.1); BASOPHILS % (AUTO) 1.2 % (0.2-1.0); EOSINOPHILS # (AUTO) 0.1 x10^3/uL (0.0-0.2); EOSINOPHILS % (AUTO) 2.4 % (0.9-2.9); HEMATOCRIT 27.8 % (36.0-47.0); LYMPHOCYTES # (AUTO) 0.8 X10^3/uL (1.3-2.9); MEAN CORPUSCULAR HEMOGLOBIN 28.4 pg (27.0-34.0); MEAN CORPUSCULAR HGB CONC 32.4 g/dL (33.0-35.0); MEAN CORPUSCULAR VOLUME 87.6 fL (80.0-100.0); MEAN PLATELET VOLUME 8.2 fL (7.4-11.0); MONOCYTES # (AUTO) 0.7 x10^3/uL (0.3-0.8); MONOCYTES % (AUTO) 12.9 % (0.0-13.0); NEUTROPHILS # (AUTO) 3.4 x10^3/uL (2.2-4.8); NEUTROPHILS % (AUTO) 67.5 % (42.0-75.0); PLATELET COUNT 161 X10^3/uL (150.0-450.0); RED BLOOD COUNT 3.18 X10^6/uL (3.5-5.4); RED CELL DISTRIBUTION WIDTH 19.2 % (11.6-16.5); WHITE BLOOD COUNT 5.1 X10^3/uL (3.6-10.0)
[2016-11-08 06:33] LABS: ALANINE AMINOTRANSFERASE 32 Units/L (12-78); ALBUMIN 2.8 g/dL (3.4-5.0); ALKALINE PHOSPHATASE 280 Units/L (46-116); ASPARTATE AMINO TRANSFERASE 43 Units/L (15-37); BLOOD UREA NITROGEN 20 mg/dL (7-18); CALCIUM 8.8 mg/dL (8.5-10.1); CARBON DIOXIDE 32.9 mmol/L (21-32); CHLORIDE 107 mmol/L (98-107); COR CA(FOR HYPOALB) 9.8 mg/dL (8.5-10.1); CREATININE 1.14 mg/dL (0.55-1.02); SODIUM 146 mmol/L (136-145); TOTAL PROTEIN 6.8 g/dL (6.4-8.2); eGFR BLACK RACES 59 (>60); eGFR NON BLACK RACES 49 (>60)
[2016-11-08] MEDS ORDERED: K-RIDER 10 MEQ/NS 100 ML 10 MEQ/100 ML BAG IV PRN (06:43)
[2016-11-08] MEDS ORDERED: K-DUR TAB 20 MEQ PO PRN (06:43)
[2016-11-08] MEDS ORDERED: POTASSIUM CHLORIDE LIQ 20 MEQ UDC PO PRN (06:43)
[2016-11-08] MEDS ORDERED: K-LYTE EFFERVESCENT PO PRN (06:43)
--- NOTE | 2016-11-08 09:19 | PCM.PROG ---
Progress Note - Progress Note for Day of Date: 11/08/16 - Subjective Subjective: WAS ADMITTED FOR ALTERED MENTAL STATUS, CHF, AND A RADIAL FX. SHE IS ALERT AND ORIENTED, LYING IN BED ON MORNING ROUNDS. SHE IS NOTED WITH COMPLAINTS OF RIGHT ARM PAIN AND SHORTNESS OF BREATH. RIGHT ARM IS NOTED IN SLING. CONSULTED WITH PATIENT AND REPORTED THAT NO SURGERY WAS NEEDED, BUT PATIENT WOULD NEED TO CONTINUE TO WEAR SLING. STAFF REPORTS THAT PATIENT BEGAN WITH NOSEBLEEDS THROUGHOUT THE NIGHT. NO ACTIVE BLEED NOTED ON MORNING ROUNDS. LUNGS ARE NOTED WITH WHEEZING ON AUSCULTATION. GRAY CATHETER NOTED AT BEDSIDE WITH DARK HUNG URINE. WE PLAN TO MONITOR PATIENT TODAY. WE WILL HOLD ELIQUIS TODAY AND RESTART ELIQUIS 2.5MG PO BID TOMORROW MORNING. WE PLAN TO RECHECK AM LABS AND CONTINUE TO MONITOR PATIENT. - Past Medical Family Social History Past Med/Fam/Surg Hx: No changes since H&P Allergies: Allergies ciprofloxacin [From Cipro] Allergy (Verified 10/17/16 20:09) clonazepam Allergy (Verified 10/17/16 20:09) gabapentin Allergy (Verified 10/17/16 20:09) methylprednisolone Allergy (Verified 10/17/16 20:09) morphine Allergy (Verified 10/17/16 20:09) oxycodone Allergy (Verified 10/17/16 20:09) Sulfa (Sulfonamide Antibiotics) [SULFA] Allergy (Verified 10/17/16 20:09) - Review of Systems ROS: No change since H&P - Vital Signs and I&O's Vital Signs: Temperature 97.8 F Pulse Rate [Left Brachial] 77 Pulse Rate 110 Respiratory Rate 22 Blood Pressure [Left Arm] 111/78 Blood Pressure [Right Arm] 153/84 Blood Pressure 136/64 O2 Sat by Pulse Oximetry 96 Intake and Output: Intake & Output 11/05/16 11/06/16 11/07/16 11/08/16 11:59 11:59 11:59 11:59 Intake Total 10 350 Output Total 200 500 Balance -190 -150 - Physical Exam Oriented: Normal Eyes: Normal Ear: Normal Nose: Normal Throat: Normal Respiratory: Right, Left, Wheezes Cardiovascular: Normal : Normal Auscultation: Bowel Sounds: Normal Palpation: Normal Tenderness: Normal Skin: Normal Musculoskeletal: Right, Forearm, Tender (FRACTURE ) Psychiatric: Normal Mood Description: Calm Affect: Normal Speech Pattern: Unclear, Inappropriate - Laboratory and Diagnostics Result Diagrams: 11/08/16 05:10 11/08/16 05:10 Labs: Laboratory WBC 5.1 X10^3/uL (3.6-10.0) 11/08/16 05:10 RBC 3.18 X10^6/uL (3.5-5.4) L 11/08/16 05:10 Hgb 9.0 g/dL (12.0-16.0) L 11/08/16 05:10 Hct 27.8 % (36.0-47.0) L 11/08/16 05:10 MCV 87.6 fL (80.0-100.0) 11/08/16 05:10 MCH 28.4 pg (27.0-34.0) 11/08/16 05:10 MCHC 32.4 g/dL (33.0-35.0) L 11/08/16 05:10 RDW 19.2 % (11.6-16.5) H 11/08/16 05:10 Plt Count 161 X10^3/uL (150.0-450.0) 11/08/16 05:10 MPV 8.2 fL (7.4-11.0) 11/08/16 05:10 Neut % 67.5 % (42.0-75.0) 11/08/16 05:10 Lymph % 16.0 % (21.0-51.0) L 11/08/16 05:10 Coos % 12.9 % (0.0-13.0) 11/08/16 05:10 Eos % 2.4 % (0.9-2.9) 11/08/16 05:10 Baso % 1.2 % (0.2-1.0) H 11/08/16 05:10 Neut # 3.4 x10^3/uL (2.2-4.8) 11/08/16 05:10 Lymph # 0.8 X10^3/uL (1.3-2.9) L 11/08/16 05:10 Coos # 0.7 x10^3/uL (0.3-0.8) 11/08/16 05:10 Eos # 0.1 x10^3/uL (0.0-0.2) 11/08/16 05:10 Baso # 0.1 X10^3/uL (0.0-0.1) 11/08/16 05:10 Absolute Nucleated RBC 0.1 /100WBC 11/08/16 05:10 INR Target Range - 11/08/16 05:10 INR 1.74 (0.8-1.3) H 11/08/16 05:10 PTT 39.9 SECONDS (22.9-36.5) H 11/06/16 09:52 PTT Comment - 11/06/16 09:52 Sodium 146 mmol/L (136-145) H 11/08/16 05:10 Corrected Sodium TNP 11/08/16 05:10 Potassium 3.3 mmol/L (3.5-5.1) L 11/08/16 05:10 Chloride 107 mmol/L (98-107) 11/08/16 05:10 Carbon Dioxide 32.9 mmol/L (21-32) H 11/08/16 05:10 BUN 20 mg/dL (7-18) H 11/08/16 05:10 Creatinine 1.14 mg/dL (0.55-1.02) H 11/08/16 05:10 Est GFR (MDRD) Af Amer 59 (>60) 11/08/16 05:10 Est GFR (MDRD) Non-Af 49 (>60) L 11/08/16 05:10 Glucose 74 mg/dL (65-99) 11/08/16 05:10 Calcium 8.8 mg/dL (8.5-10.1) 11/08/16 05:10 Corrected Calcium 9.8 mg/dL (8.5-10.1) 11/08/16 05:10 Magnesium 2.1 mg/dL (1.7-2.9) 11/06/16 09:52 Total Bilirubin 1.10 mg/dL (0.2-1.0) H 11/08/16 05:10 AST 43 Units/L (15-37) H 11/08/16 05:10 ALT 32 Units/L (12-78) 11/08/16 05:10 Alkaline Phosphatase 280 Units/L (46-116) H 11/08/16 05:10 Creatine Kinase 84 Units/L (26-192) 11/06/16 09:52 CK-MB (CK-2) 1.3 ng/mL (0-4.0) 11/06/16 09:52 CK/CKMB % Calc 1.6 % (<4) 11/06/16 09:52 Troponin I < 0.02 ng/mL (0-1.5) 11/06/16 09:52 B-Natriuretic Peptide 603 pg/mL (0-79) H* 11/06/16 09:52 Total Protein 6.8 g/dL (6.4-8.2) 11/08/16 05:10 Albumin 2.8 g/dL (3.4-5.0) L 11/08/16 05:10 Globulin 4.0 g/dL (2.5-4.5) 11/08/16 05:10 Albumin/Globulin Ratio 0.7 Ratio (1.1-2.1) L 11/08/16 05:10 Specimen Type Catherized urine 11/06/16 14:19 Urine Color Yellow (YELLOW) 11/06/16 14:19 Urine Appearance Clear (CLEAR) 11/06/16 14:19 Urine pH 6.5 (5.0 - 8.0) 11/06/16 14:19 Ur Specific Speer 1.010 (1.000-1.030) 11/06/16 14:19 Urine Protein 2+ (NEGATIVE) 11/06/16 14:19 Urine Glucose (UA) Negative (NEGATIVE) 11/06/16 14:19 Urine Ketones Negative (NEGATIVE) 11/06/16 14:19 Urine Occult Blood 1+ (NEGATIVE) 11/06/16 14:19 Urine Nitrite Negative (NEGATIVE) 11/06/16 14:19 Urine Bilirubin Negative (NEGATIVE) 11/06/16 14:19 Urine Urobilinogen 2+ (NORMAL) 11/06/16 14:19 Ur Leukocyte Esterase 1+ (NEGATIVE) 11/06/16 14:19 Urine RBC Rare /HPF (NEGATIVE) 11/06/16 14:19 Urine WBC 0 - 3 /HPF (NEGATIVE) 11/06/16 14:19 Ur Squamous Epith Cells Few /HPF (NEGATIVE) 11/06/16 14:19 Ur Renal Epithelial Cell Rare /HPF (NEGATIVE) 11/06/16 14:19 Amorphous Sediment Trace /HPF (NEGATIVE) 11/06/16 14:19 Urine Bacteria Negative /HPF (NEGATIVE) 11/06/16 14:19 Hyaline Casts Many /LPF (NEGATIVE) 11/06/16 14:19 Ur Culture Indicated? No/not indicated 11/06/16 14:19 - Plan (1) Closed fracture of right proximal radius Status: Acute Qualifiers: Encounter type: initial encounter Fracture morphology: unspecified fracture morphology Qualified Code(s): S52.101A - Unspecified fracture of upper end of right radius, initial encounter for closed fracture Plan: SLING, ORTHO CONSULT, NORCO 10/325MG HS, DEMEROL 25MG IVP Q3H PRN PAIN, PT /OT, CONTINUE TO MONITOR (2) Multiple fractures of ribs of right side Status: Acute Qualifiers: Encounter type: initial encounter Fracture type: closed Qualified Code(s) : S22.41XA - Multiple fractures of ribs, right side, initial encounter for closed fracture Plan: PT/OT, NORCO 10/325 HS PAIN, DEMEROL 25MG IV Q3H PRN PAIN, CONTINUE TO MONITOR (3) CHF (congestive heart failure) Status: Chronic Qualifiers: Congestive heart failure type: unspecified congestive heart failure type Congestive heart failure chronicity: unspecified congestive heart failure chronicity Qualified Code(s): I50.9 - Heart failure, unspecified Plan: LASIX 40MG PO BID, DUONEBS, SUPPLEMENTAL OXYGEN, CONTINUE TO MONITOR
[2016-11-08] MEDS: EXELON PATCH 4.6 MG/24 HR TD SCH (09:27)
[2016-11-08] MEDS: PEPCID TAB 20 MG PO SCH ×2 (09:28→20:40)
[2016-11-08] MEDS: TOPROL XL PO SCH (09:28)
[2016-11-08] MEDS: ZOLOFT PO SCH (09:28)
[2016-11-08] MEDS: NAMENDA TAB 10 MG PO SCH ×2 (09:28→20:41)
[2016-11-08] MEDS: LASIX PO SCH ×2 (09:28→20:40)
[2016-11-08] MEDS: MACROBID CAP 100 MG EXT REL PO SCH ×2 (09:29→20:41)
[2016-11-08] MEDS: DEMEROL INJ IVP PRN ×2 (10:20→14:17)
[2016-11-08] MEDS: ELIQUIS PO SCH (12:16)
[2016-11-08] MEDS ORDERED: CARDIZEM SR 120 MG PO ONE (17:52)
[2016-11-08] MEDS: DILTIAZEM HCL 120 MG PO SCH (17:55)
[2016-11-08] MEDS: CRESTOR TAB 10 MG PO SCH (20:39)
[2016-11-08] MEDS: DESYREL PO SCH (20:39)
[2016-11-08] MEDS: REMERON PO SCH (20:40)
[2016-11-08] MEDS: NORCO 10/325 TAB PO SCH (20:41)
[2016-11-09 05:18] LABS: BASOPHILS # (AUTO) 0.1 X10^3/uL (0.0-0.1); BASOPHILS % (AUTO) 1.9 % (0.2-1.0); EOSINOPHILS # (AUTO) 0.3 x10^3/uL (0.0-0.2); EOSINOPHILS % (AUTO) 5.6 % (0.9-2.9); HEMATOCRIT 28.3 % (36.0-47.0); HEMOGLOBIN 9.1 g/dL (12.0-16.0); LYMPHOCYTES # (AUTO) 0.8 X10^3/uL (1.3-2.9); LYMPHOCYTES % (AUTO) 17.5 % (21.0-51.0); MEAN CORPUSCULAR HEMOGLOBIN 28.6 pg (27.0-34.0); MEAN CORPUSCULAR HGB CONC 32.3 g/dL (33.0-35.0); MEAN CORPUSCULAR VOLUME 88.8 fL (80.0-100.0); MEAN PLATELET VOLUME 8.1 fL (7.4-11.0); MONOCYTES # (AUTO) 0.7 x10^3/uL (0.3-0.8); MONOCYTES % (AUTO) 13.8 % (0.0-13.0); NEUTROPHILS # (AUTO) 2.9 x10^3/uL (2.2-4.8); NEUTROPHILS % (AUTO) 61.2 % (42.0-75.0); PLATELET COUNT 177 X10^3/uL (150.0-450.0); RED BLOOD COUNT 3.18 X10^6/uL (3.5-5.4); RED CELL DISTRIBUTION WIDTH 19.1 % (11.6-16.5); WHITE BLOOD COUNT 4.8 X10^3/uL (3.6-10.0)
[2016-11-09 05:30] LABS: ALANINE AMINOTRANSFERASE 29 Units/L (12-78); ALBUMIN 2.8 g/dL (3.4-5.0); ALKALINE PHOSPHATASE 286 Units/L (46-116); ASPARTATE AMINO TRANSFERASE 36 Units/L (15-37); BLOOD UREA NITROGEN 17 mg/dL (7-18); CALCIUM 8.5 mg/dL (8.5-10.1); CARBON DIOXIDE 34.1 mmol/L (21-32); CHLORIDE 108 mmol/L (98-107); COR CA(FOR HYPOALB) 9.5 mg/dL (8.5-10.1); CREATININE 1.08 mg/dL (0.55-1.02); SODIUM 146 mmol/L (136-145); TOTAL PROTEIN 6.7 g/dL (6.4-8.2); eGFR BLACK RACES > 60 (>60); eGFR NON BLACK RACES 52 (>60)
--- NOTE | 2016-11-09 06:42 | RAD ---
HISTORY: Shortness of breath Study: AP portable chest Comparison: November 08, 2016 Findings: The patient is rotated to the left. There is a pacemaker present in the left axilla. The patient is s tatus post median sternotomy. The heart remains enlarged. Worsening congestive heart failure is prese nt. Right pleural effusion is present. The bony thorax is unremarkable. IMPRESSION: Cardiomegaly with worsening congestive heart failure and interval development of a right pleural effu jaqui Reported By:
[2016-11-09 08:09] VITALS: BP 134/71
[2016-11-09] MEDS: LASIX PO SCH (08:38)
[2016-11-09] MEDS: PEPCID TAB 20 MG PO SCH (08:38)
[2016-11-09] MEDS: EXELON PATCH 4.6 MG/24 HR TD SCH (08:38)
[2016-11-09] MEDS: MACROBID CAP 100 MG EXT REL PO SCH (08:38)
[2016-11-09] MEDS: ZOLOFT PO SCH (08:38)
[2016-11-09] MEDS: TOPROL XL PO SCH (08:38)
[2016-11-09] MEDS: NAMENDA TAB 10 MG PO SCH (08:38)
[2016-11-09] MEDS: DEMEROL INJ IVP PRN ×2 (08:39→11:30)
[2016-11-09] MEDS ORDERED: DUONEB 0.5 MG/3 MG NEB SCH (09:00)
[2016-11-09] MEDS ORDERED: LASIX IVP NR (09:09)
[2016-11-09] MEDS ORDERED: COLACE CAP 100 MG PO SCH (12:00)
[2016-11-09] MEDS ORDERED: MILK OF MAGNESIA PO SCH (12:00)
--- NOTE | 2016-11-09 14:22 | DR.CONSULT ---
Consult - Consultation for Day of: Date: 11/09/16 (thanks for the consultation with Dr. Tobias.) - Chief Complaint Chief Complaint: pain in the RIGHT wrist. History of fall. Difficulty in using the RIGHT wrist due to pain. - Allergies Allergies/Adverse Reactions: Allergies Allergy/AdvReac Type Severity Reaction Status Date / Time ciprofloxacin [From Cipro] Allergy Verified 10/17/16 20:09 clonazepam Allergy Verified 10/17/16 20:09 gabapentin Allergy Verified 10/17/16 20:09 methylprednisolone Allergy Verified 10/17/16 20:09 morphine Allergy Verified 10/17/16 20:09 oxycodone Allergy Verified 10/17/16 20:09 Sulfa (Sulfonamide Allergy Verified 10/17/16 20:09 Antibiotics) [SULFA] - History of Present Illness History of Present Illness: history of fall. Sustained RIGHT wrist fracture. Seen in the emergency room and confirmed a nondisplaced minimally impacted RIGHT wrist distal radius fracture. Placed in a splint. Consult for the same. - Past Medical History Past Medical History: Anemia, Anxiety, CHF, Coronary Artery Disease, Dementia, Depression, Dyslipidemia, GERD, Hypertension Additional Medical History: Cataracts, Atrial fibrillation, Alzheimers diease, Atrial Fibrillation, Sleep Apnea, Previous blood transfusion - Past Surgical History Surgical History: CABG/Valve Surgery, Hysterectomy, Joint Replacement, Ortho Surgery Additional Surgical History: Pacemaker - Family History Family Medical History: Diabetes Mellitus, Cancer, Hypertension - Social History Does patient currently use any type of tobacco product: No Have you used tobacco products in the last 12 months: No Type of Tobacco Use: None Does any household member use tobacco: No Alcohol Use: None Drug Use: None - Medications Home Medications: Furosemide [LASIX TAB 40 MG *] 1 tab PO BID 11/06/16 [History Confirmed 11/07/16 ] Lorazepam [ATIVAN 0.5 MG TAB *] 1 tab PO DAILY PRN 11/06/16 [History Confirmed 11/07/16] Nitrofurantoin Macro [MacroBID 100 MG EXT REL *] 1 tab PO BID 11/06/16 [History Confirmed 11/07/16] Rivastigmine [EXELON PATCH 4.6 MG/24 HR *] 1 patch TRANSUR DAILY 11/06/16 [ History Confirmed 11/07/16] - Physical Exam Vital Signs: Temperature 97.6 F Pulse Rate [Left Brachial] 107 Pulse Rate 110 Respiratory Rate 18 Blood Pressure [Left Arm] 134/71 Blood Pressure [Right Arm] 153/84 Blood Pressure 136/64 O2 Sat by Pulse Oximetry 97 Musculoskeletal: Left, Wrist, Swelling, Tender - Plan Plan: RIGHT wrist shows a nondisplaced minimally impacted stable distal and radius fracture. This can be treated conservatively. She placed in a splint. Pain management. Follow-up in my office in a week with x-rays of the RIGHT wrist. In case of displacement she might need surgery. All questions were answered.
== END 2016-11-09 12:20 ==
LOC: ER 09:37 → MED/SURG 16:49
PROVIDERS: ADMIT Internal Medicine; ATTEND Internal Medicine
DX: S52.181A Other fracture of upper end of right radius, initial encounter for closed fracture (principal); S32.19XA Other fracture of sacrum, initial encounter for closed fracture; S22.41XA Multiple fractures of ribs, right side, initial encounter for closed fracture; R41.82 Altered mental status, unspecified; W18.39XA Other fall on same level, initial encounter; Z91.81 History of falling; Y92.89 Other specified places as the place of occurrence of the external cause; R06.02 Shortness of breath; R94.31 Abnormal electrocardiogram [ECG] [EKG]; J90 Pleural effusion, not elsewhere classified; J81.0 Acute pulmonary edema; F41.8 Other specified anxiety disorders; I25.10 Atherosclerotic heart disease of native coronary artery without angina pectoris; E78.2 Mixed hyperlipidemia; I10 Essential (primary) hypertension; K21.9 Gastro-esophageal reflux disease without esophagitis; R60.0 Localized edema; M25.551 Pain in right hip; I50.9 Heart failure, unspecified
CPT/HCPCS: 29125; 36415; 51701; 51702; 70450; 71010; 71250; 72192; 73090; 73130; 80053; 81001; 82550; 82553; 83735; 83880; 84132; 84484; 85025; 85610; 85730; 93005; 93010; 94640; 94660; 94760; 96365; 96374; 96375; 99284; A4216; A4222; A4618; A7030; G0378; J1885; J1940; J2175; J7620

== ENCOUNTER → 2016-11-11 | Outpatient (CLI) | payer OTHER, MEDICARE ==
[2016-11-09 08:09] VITALS: BP 134/71
--- NOTE | 2016-11-11 14:49 | CT ---
HEAD CT WITHOUT IV CONTRAST CLINICAL INDICATION: Fall TECHNIQUE: Axial CT images from skull base to vertex without IV contrast.Dose reduction techniques in cluding Automated Exposure Control (AEC) and adjustment of mA and kV were utlized. COMPARISON: 11/06/2016 FINDINGS: Diffuse patchy and confluent white matter hypoattenuation with associated volume loss There is no kristofer dence of acute infarction, intracranial hemorrhage, mass or mass effect, or abnormal extra-axial grzegorz ection. The density of the larger dural venous sinuses is normal. Age-related, ex-vacuo dilatation of the ventricles and sulci. The skull base and calvarium are normal. The included paranasal sinuses an d mastoid air cells are predominantly clear. IMPRESSION: 1. No acute intracranial abnormality. 2. Chronic microangiopathic changes and ex vacuo dilatation of the ventricles and sulci. Reported By:
== END | disposition home or self-care (01) ==
LOC: RAD 13:57
PROVIDERS: ATTEND Internal Medicine
DX: W18.39XA Other fall on same level, initial encounter (principal); Z91.81 History of falling
CPT/HCPCS: 70450

== ENCOUNTER → 2016-11-15 | Outpatient (CLI) | payer OTHER, MEDICARE ==
[2016-11-09 08:09] VITALS: BP 134/71
--- NOTE | 2016-11-15 14:02 | RAD ---
HISTORY: Follow up wrist fracture Study: Right wrist AP, lateral, oblique Comparison: November 05, 2016 Findings: Now visualized is mild trabecular disruption in the diametaphyseal region of the distal right radius suggestive of nondisplaced fracture. The distal ulna appears intact. The carpal bones are intact and normally aligned. There is degenerative joint disease in the 1st carpometacarpal joint. IMPRESSION: Nondisplaced torus fracture diametaphyseal region distal radius better visualized on this examination than on the prior examination Degenerative joint disease 1st carpometacarpal joint Reported By:
== END | disposition home or self-care (01) ==
LOC: RAD 08:36
PROVIDERS: ATTEND Internal Medicine
DX: S52.521A Torus fracture of lower end of right radius, initial encounter for closed fracture (principal); W19.XXXA Unspecified fall, initial encounter; M19.031 Primary osteoarthritis, right wrist
CPT/HCPCS: 73100

== ENCOUNTER → 2016-12-07 | Outpatient (CLI) | payer OTHER, MEDICARE ==
[2016-11-09 08:09] VITALS: BP 134/71
--- NOTE | 2016-12-08 11:55 | RAD ---
HISTORY: Post right wrist fracture Study: Three-view right wrist Comparison: 11/15/2016 Findings: There is a healing impacted transverse fracture of the right distal radial metaphysis. Fracture lines are still identified. Callus formation is present. A normal radiocarpal anatomic alignment is seen. There is generalized soft tissue swelling involving the distal forearm, wrist and hand regions. Degen erative changes again seen involving the 1st CMC joint. IMPRESSION: Healing, impacted transverse fracture of the right distal radial metaphysis. Reported By:
== END ==
LOC: RAD 14:08
PROVIDERS: ATTEND Internal Medicine
DX: Z87.81 Personal history of (healed) traumatic fracture (principal)
CPT/HCPCS: 73100

== ENCOUNTER 2016-12-20 12:37 | Inpatient (IN) | payer OTHER, MEDICARE ==
[2016-12-20 16:03] LABS: ALANINE AMINOTRANSFERASE 22 Units/L (12-78); ALBUMIN 3.6 g/dL (3.4-5.0); ALKALINE PHOSPHATASE 241 Units/L (46-116); ASPARTATE AMINO TRANSFERASE 36 Units/L (15-37); BLOOD UREA NITROGEN 22 mg/dL (7-18); CALCIUM 8.8 mg/dL (8.5-10.1); CARBON DIOXIDE 27.6 mmol/L (21-32); CHLORIDE 105 mmol/L (98-107); SODIUM 144 mmol/L (136-145); TOTAL PROTEIN 8.1 g/dL (6.4-8.2); eGFR BLACK RACES 56 (>60); eGFR NON BLACK RACES 46 (>60)
[2016-12-20 16:08] LABS: BASOPHILS % (AUTO) 0.6 % (0.2-1.0); EOSINOPHILS # (AUTO) 0.2 x10^3/uL (0.0-0.2); EOSINOPHILS % (AUTO) 4.9 % (0.9-2.9); HEMOGLOBIN 10.3 g/dL (12.0-16.0); LYMPHOCYTES # (AUTO) 0.7 X10^3/uL (1.3-2.9); LYMPHOCYTES % (AUTO) 17.8 % (21.0-51.0); MEAN CORPUSCULAR HEMOGLOBIN 28.1 pg (27.0-34.0); MEAN CORPUSCULAR HGB CONC 32.1 g/dL (33.0-35.0); MEAN CORPUSCULAR VOLUME 87.6 fL (80.0-100.0); MEAN PLATELET VOLUME 7.9 fL (7.4-11.0); MONOCYTES # (AUTO) 0.5 x10^3/uL (0.3-0.8); MONOCYTES % (AUTO) 12.7 % (0.0-13.0); NEUTROPHILS # (AUTO) 2.5 x10^3/uL (2.2-4.8); PLATELET COUNT 202 X10^3/uL (150.0-450.0); RED BLOOD COUNT 3.65 X10^6/uL (3.5-5.4); RED CELL DISTRIBUTION WIDTH 18.7 % (11.6-16.5)
[2016-12-20 16:12] LABS: B-TYPE NATRIURETIC PEPTIDE 414 pg/mL (0-79)
[2016-12-20] MEDS: LASIX IVP SCH ×2 (16:19→23:55)
--- NOTE | 2016-12-20 16:55 | RAD ---
Chest, one-view Indication: Shortness of breath Comparison: 11/09/2016 Findings: There is stable moderate cardiomegaly with persistent but improved interstitial edema. Prio r median sternotomy changes and left-sided pacemaker again noted. There is a trace right pleural effu jaqui, decreased in the interval. No left pleural effusion, pneumothorax or focal consolidation is tarun ntified. Impression: Stable cardiomegaly with persistent but improved interstitial edema and trace right pleural effusion. Reported By:
[2016-12-20] MEDS: NORCO 10/325 TAB PO SCH ×2 (17:30→23:55)
[2016-12-20] MEDS: ATIVAN TAB 0.5 MG PO PRN (18:19)
[2016-12-20 20:04] LABS: BILIRUBIN,URINE NEGATIVE (NEGATIVE); BLOOD/HEMOGLOBIN,URINE 3+ (NEGATIVE); GLUCOSE, URINE NEGATIVE (NEGATIVE); KETONES,URINE NEGATIVE (NEGATIVE); LEUKOCYTE ESTERASE ,URINE 2+ (NEGATIVE); NITRITES,URINE NEGATIVE (NEGATIVE); PROTEIN,URINE 2+ (NEGATIVE); UROBILINOGEN,URINE NORMAL (NORMAL)
[2016-12-20 20:11] LABS: APPEARANCE,URINE CLOUDY (CLEAR); COLOR,URINE YELLOW (YELLOW)
[2016-12-20 20:12] LABS: AMORPHOUS SEDIMENT,UR TRACE /HPF (NEGATIVE); BACTERIA,URINE TRACE /HPF (NEGATIVE); SQUAMOUS EPITHELIAL CELL,UR RARE /HPF (NEGATIVE)
[2016-12-21 04:52] LABS: BASOPHILS # (AUTO) 0.1 X10^3/uL (0.0-0.1); BASOPHILS % (AUTO) 1.7 % (0.2-1.0); EOSINOPHILS # (AUTO) 0.2 x10^3/uL (0.0-0.2); HEMATOCRIT 30.9 % (36.0-47.0); LYMPHOCYTES # (AUTO) 0.7 X10^3/uL (1.3-2.9); MEAN CORPUSCULAR HEMOGLOBIN 28.1 pg (27.0-34.0); MEAN CORPUSCULAR HGB CONC 32.3 g/dL (33.0-35.0); MEAN PLATELET VOLUME 7.4 fL (7.4-11.0); MONOCYTES # (AUTO) 0.5 x10^3/uL (0.3-0.8); MONOCYTES % (AUTO) 10.4 % (0.0-13.0); NEUTROPHILS % (AUTO) 67.9 % (42.0-75.0); PLATELET COUNT 199 X10^3/uL (150.0-450.0); RED BLOOD COUNT 3.55 X10^6/uL (3.5-5.4); RED CELL DISTRIBUTION WIDTH 19.1 % (11.6-16.5); WHITE BLOOD COUNT 4.4 X10^3/uL (3.6-10.0)
[2016-12-21 04:57] LABS: ALANINE AMINOTRANSFERASE 21 Units/L (12-78); ALBUMIN 3.5 g/dL (3.4-5.0); ALKALINE PHOSPHATASE 225 Units/L (46-116); ASPARTATE AMINO TRANSFERASE 28 Units/L (15-37); BLOOD UREA NITROGEN 19 mg/dL (7-18); CALCIUM 8.6 mg/dL (8.5-10.1); CARBON DIOXIDE 32.6 mmol/L (21-32); CHLORIDE 105 mmol/L (98-107); CREATININE 1.22 mg/dL (0.55-1.02); SODIUM 145 mmol/L (136-145); TOTAL PROTEIN 7.7 g/dL (6.4-8.2); eGFR BLACK RACES 55 (>60); eGFR NON BLACK RACES 45 (>60)
[2016-12-21] MEDS ORDERED: MAGNESIUM SULFATE 1 GM/100 mL PREMIX 1 GM/100 ML BAG IV PRN (05:51)
[2016-12-21] MEDS ORDERED: MAG-OX TAB PO PRN (05:51)
[2016-12-21] MEDS ORDERED: K-LYTE EFFERVESCENT PO PRN (05:51)
[2016-12-21] MEDS ORDERED: NS 500 ML IV 500 ML IV PRN (05:57)
[2016-12-21] MEDS: K-RIDER 10 MEQ/NS 100 ML 10 MEQ/100 ML BAG IV PRN ×4 (06:17→17:32)
--- NOTE | 2016-12-21 08:19 | RAD ---
Chest, one-view Indication: Shortness of breath Comparison: 12/20/2016 Findings: Mild cardiomegaly and interstitial edema appear unchanged. A trace right pleural effusion p ersists. No focal consolidation or pneumothorax is identified. Prior median sternotomy and left-sided pacemaker again noted. Impression: Stable findings of mild congestive failure with trace persistent right pleural effusion. Reported By:
[2016-12-21] MEDS: LASIX IVP SCH ×2 (09:00→21:43)
[2016-12-21] MEDS: NORCO 10/325 TAB PO SCH ×2 (09:15→21:18)
[2016-12-21] MEDS: ATIVAN TAB 0.5 MG PO PRN (09:45)
[2016-12-21] MEDS ORDERED: ZOFRAN TAB 4 MG PO PRN (12:03)
[2016-12-21] MEDS ORDERED: TUMS PO PRN (12:03)
[2016-12-21] MEDS ORDERED: PATIENT'S HOME MEDICATION (Apixaban [Eliquis] 2.5 MG) PO SCH (12:15)
[2016-12-21] MEDS ORDERED: DILTIAZEM HCL 120 MG PO SCH (12:15)
[2016-12-21] MEDS ORDERED: PATIENT'S HOME MEDICATION (Sertraline Hcl [Zoloft 25 Mg] 1 TAB) PO SCH (12:15)
[2016-12-21] MEDS: ROCEPHIN VIAL 1 GM 1 GM in NS 100 ML IV + SPIKE MINIBAG* 100 ML IV SCH (14:00)
[2016-12-21] MEDS: ALBUMIN HUMAN 25%- 100ML 100 ML IV SCH (14:30)
[2016-12-21] MEDS: ZyPREXA TAB 5 MG PO SCH (15:03)
[2016-12-21] MEDS: EXELON PATCH 4.6 MG/24 HR TD SCH (15:04)
[2016-12-21] MEDS: PEPCID TAB 20 MG PO SCH ×2 (15:04→21:18)
[2016-12-21] MEDS: NAMENDA TAB 10 MG PO SCH ×2 (15:04→21:18)
[2016-12-21] MEDS: TOPROL XL PO SCH (15:05)
[2016-12-21] MEDS ORDERED: PATIENT'S HOME MEDICATION (Rosuvastatin Calcium [Crestor] 20 MG) PO SCH (21:00)
[2016-12-21] MEDS: DESYREL PO SCH (21:17)
[2016-12-21] MEDS: ELIQUIS PO SCH (21:17)
[2016-12-21] MEDS: CRESTOR TAB 10 MG PO SCH (21:17)
--- NOTE | 2016-12-21 21:19 | DR.H&P ---
H&P - History & Physical for Day of: H&P Date: 12/20/16 - Chief Complaint Chief Complaint: SHORT OF BREATH, EDEMA TO LOWER EXTREMITIES - Allergies Allergies/Adverse Reactions: Allergies Allergy/AdvReac Type Severity Reaction Status Date / Time ciprofloxacin [From Cipro] Allergy Verified 10/17/16 20:09 clonazepam Allergy Verified 10/17/16 20:09 gabapentin Allergy Verified 10/17/16 20:09 methylprednisolone Allergy Verified 10/17/16 20:09 morphine Allergy Verified 10/17/16 20:09 oxycodone Allergy Verified 10/17/16 20:09 Sulfa (Sulfonamide Allergy Verified 10/17/16 20:09 Antibiotics) [SULFA] - History of Present Illness History of Present Illness: IS A 81 YEAR OLD PATIENT WHO IS A RESIDENT OF [facility]. SHE PRESENTED TO THE HOSPITAL WITH COMPLAINTS OF COUGH, SHORTNESS OF BREATH, AND EDEMA TO BILATERAL LOWER EXTREMITIES. SHE WAS NOTED WITH CONFUSION AND AGITATION. STAFF REPORTS THAT PATIENT HAS BEEN YELLING OUT IN PAIN SINCE ADMISSION. ON EXAMINATION, LUNG SOUNDS ARE DIMINISHED THROUGHOUT. ABDOMEN IS NOTED WITH DISTENTION AND DIFFUSE TENDERNESS TO PALPATION. BILATERAL LOWER EXTREMITIES ARE NOTED WITH REDNESS AND 3+ PITTING EDEMA. ON ARRIVAL, HER VITAL SIGNS WERE 97.4, 86, 16, 96% 2L NC, 135/ 62. LABS AND CHEST XRAY WERE OBTAINED ON ADMISSION. ABNORMAL LAB VALUES INCLUDE THE FOLLOWING: Hgb 10.3, Hct 32.0, MCHC 32.1, RDW 18.7, BUN 22, Creatinine 1.20 , GFR af 56, GFR non 46, Alk Phos 241, BNP 414, A/G Ratio 0.8. URINALYSIS REPORTED: Catherized, Cloudy, Protein 2+, Occult Blood 3+, Leuk Est 2+, RBC 10- 12, WBC 35-40, Bacteria Trace, Culture Pending. CHEST XRAY WAS OBTAINED AND REPORTED: Stable cardiomegaly with persistent but improved interstitial edema and trace right pleural effusion. SHE WAS STARTED ON LASIX 40MG IV BID AND ROCEPHIN 1GM IV DAILY. WE PLANNED TO FOLLOW UP WITH AM LABS AND CONTINUE TO MONTIOR PATIENT. - Past Medical History Past Medical History: Anemia, Anxiety, CHF, Coronary Artery Disease, Dementia, Depression, Dyslipidemia, GERD, Hypertension Additional Medical History: Cataracts, Atrial fibrillation, Alzheimers diease, Atrial Fibrillation, Sleep Apnea, Previous blood transfusion - Past Surgical History Surgical History: CABG/Valve Surgery, Hysterectomy, Joint Replacement, Ortho Surgery Additional Surgical History: Pacemaker - Family History Family Medical History: Diabetes Mellitus, Cancer, Hypertension - Social History Does patient currently use any type of tobacco product: No Have you used tobacco products in the last 12 months: No Type of Tobacco Use: None Alcohol Use: None Drug Use: None - Review of Systems Constitutional: No Symptoms Reported, Weakness Eyes: No Symptoms Reported. denies: Vision Change, Conjunctivae Inflammation, Eyelid Inflammation ENT: No Symptoms Reported. denies: Nose Discharge, Nose Congestion Respiratory: Cough, Shortness of Breath, SOB with Excertion. denies: Sputum, Wheezing Cardiovascular: Edema. denies: Chest Pain Gastrointestinal: Abdominal Pain. denies: Nausea, Vomiting, Diarrhea, Melena, Hematochezia Genitourinary: No Symptoms Reported Musculoskeletal: No Symptoms Reported Skin: No Symptoms Reported Neurological: Weakness, Confusion. denies: Change in Speech, Seizures - Physical Exam Vital Signs: Temperature 98.6 F Pulse Rate [Left Brachial] 90 Pulse Rate [Left Radial] 84 Pulse Rate 86 Respiratory Rate 20 Blood Pressure [Left Arm] 129/89 Blood Pressure [Right Arm] 153/84 Blood Pressure 134/71 O2 Sat by Pulse Oximetry 90 Oriented: Not Oriented Eyes: Normal Ear: Normal Nose: Normal Throat: Normal Respiratory: Diminished Throughout Cardiovascular: Edema. negative: Tachycardia, Bradycardia : Normal. negative: Testicular Pain, Bleeding, Auscultation: Bowel Sounds: Normal Palpation: Normal Tenderness: Diffuse, Moderate. negative: Rebound, Guarding, Rigidity Skin: Red. negative: Wound, Bruising, Ecchymosis Musculoskeletal: Normal Psychiatric: Agitation Mood Description: Anxious Affect: Anxious Speech Pattern: Clear - Assessment/Plan (1) CHF (congestive heart failure) Qualifiers: Congestive heart failure type: unspecified congestive heart failure type Congestive heart failure chronicity: acute on chronic Qualified Code(s): I50.9 - Heart failure, unspecified Status: Chronic Plan: LASIX 40MG IV BID, SUPPLEMENTAL OXYGEN, MONITOR LABS AND CHEST XRAY (2) UTI (urinary tract infection) Qualifiers: Urinary tract infection type: acute cystitis Hematuria presence: with hematuria Qualified Code(s): N30.01 - Acute cystitis with hematuria Status: Acute Plan: ROCEPHIN 1GM IV DAILY, CONTINUE TO MONITOR (3) Altered mental status Qualifiers: Altered mental status type: transient alteration of awareness Qualified Code(s): R40.4 - Transient alteration of awareness Status: Acute Plan: CONTINUE TO MONITOR
[2016-12-21] MEDS: DUONEB 0.5 MG/3 MG NEB SCH (21:35)
[2016-12-21] MEDS: REMERON PO SCH (21:42)
[2016-12-22] MEDS: DUONEB 0.5 MG/3 MG NEB SCH ×8 (00:59→20:08)
[2016-12-22 05:03] VITALS: BMI 27.3
[2016-12-22] MEDS: ATIVAN TAB 0.5 MG PO PRN (05:22)
[2016-12-22 06:16] LABS: BASOPHILS % (AUTO) 0.3 % (0.2-1.0); EOSINOPHILS # (AUTO) 0.2 x10^3/uL (0.0-0.2); EOSINOPHILS % (AUTO) 3.6 % (0.9-2.9); HEMATOCRIT 30.7 % (36.0-47.0); HEMOGLOBIN 9.9 g/dL (12.0-16.0); LYMPHOCYTES # (AUTO) 0.9 X10^3/uL (1.3-2.9); LYMPHOCYTES % (AUTO) 20.7 % (21.0-51.0); MEAN CORPUSCULAR HEMOGLOBIN 28.3 pg (27.0-34.0); MEAN CORPUSCULAR HGB CONC 32.3 g/dL (33.0-35.0); MEAN CORPUSCULAR VOLUME 87.6 fL (80.0-100.0); MEAN PLATELET VOLUME 7.4 fL (7.4-11.0); MONOCYTES # (AUTO) 0.6 x10^3/uL (0.3-0.8); MONOCYTES % (AUTO) 14.4 % (0.0-13.0); NEUTROPHILS # (AUTO) 2.7 x10^3/uL (2.2-4.8); PLATELET COUNT 189 X10^3/uL (150.0-450.0); RED BLOOD COUNT 3.51 X10^6/uL (3.5-5.4); RED CELL DISTRIBUTION WIDTH 18.9 % (11.6-16.5); WHITE BLOOD COUNT 4.4 X10^3/uL (3.6-10.0)
[2016-12-22 06:20] LABS: ALANINE AMINOTRANSFERASE 18 Units/L (12-78); ALBUMIN 3.5 g/dL (3.4-5.0); ALKALINE PHOSPHATASE 208 Units/L (46-116); ASPARTATE AMINO TRANSFERASE 32 Units/L (15-37); BLOOD UREA NITROGEN 17 mg/dL (7-18); CALCIUM 8.5 mg/dL (8.5-10.1); CARBON DIOXIDE 30.5 mmol/L (21-32); CHLORIDE 106 mmol/L (98-107); CREATININE 1.21 mg/dL (0.55-1.02); SODIUM 145 mmol/L (136-145); TOTAL PROTEIN 7.4 g/dL (6.4-8.2); eGFR BLACK RACES 55 (>60); eGFR NON BLACK RACES 46 (>60)
[2016-12-22] MEDS: ELIQUIS PO SCH ×2 (08:50→20:09)
[2016-12-22] MEDS: CARDIZEM SR 120 MG PO SCH (08:50)
[2016-12-22] MEDS: LASIX IVP SCH ×2 (08:51→20:09)
[2016-12-22] MEDS: PEPCID TAB 20 MG PO SCH ×2 (08:51→20:08)
[2016-12-22] MEDS: TOPROL XL PO SCH (08:51)
[2016-12-22] MEDS: ZyPREXA TAB 5 MG PO SCH (08:51)
[2016-12-22] MEDS: ZOLOFT PO SCH (08:51)
[2016-12-22] MEDS: EXELON PATCH 4.6 MG/24 HR TD SCH (08:51)
[2016-12-22] MEDS: NORCO 10/325 TAB PO SCH ×2 (08:52→20:08)
[2016-12-22] MEDS: NAMENDA TAB 10 MG PO SCH ×2 (08:52→20:08)
[2016-12-22] MEDS: ALBUMIN HUMAN 25%- 100ML 100 ML IV SCH (09:31)
[2016-12-22] MEDS: ROCEPHIN VIAL 1 GM 1 GM in NS 100 ML IV + SPIKE MINIBAG* 100 ML IV SCH (09:31)
--- NOTE | 2016-12-22 14:19 | PCM.PROG ---
Progress Note - Progress Note for Day of Date: 12/21/16 - Subjective Subjective: WAS ADMITTED FOR CHF AND UTI. TODAY, SHE IS ALERT AND ORIENTED, LYING IN BED ON MORNING ROUNDS. AYLIN'S DAUGHTER IS AT BEDSIDE. PATIENT AND STAFF REPORT THAT PATIENT HAS BEEN AGITATED AND PULLING AT LINES. WE WERE NOT ABLE TO OBTAIN AN ECHO YESTERDAY DUE TO PATIENT BEING NON- COMPLIANT. STAFF REPORTS THAT PATIENT MOANED IN PAIN THROUGHOUT THE NIGHT AND CONTINUED WITH A DISTENDED BLADDER. A GRAY CATHETER WAS INSERTED AND BLADDER DRAINED. ON EXAMINATION, LUNG SOUNDS ARE DIMINISHED THROUGHTOUT. ABDOMEN IS ROUND, SOFT, AND NOTED WITH DIFFUSE TENDERNESS. NORMAL BOWEL SOUNDS ARE NOTED IN ALL QUADRANTS. BILATERAL LOWER EXTREMITIES CONTINUE WITH ERRYTHEMA AND 3+ PITTING EDEMA. HER VITAL SIGNS TODAY ARE 97.1-85-24-96%-119/74. ABNORMAL LAB VALUES THIS MORNING INCLUDE THE FOLLOWING: HGB 10, HCT 30.9, POTASSIUM 3.3, CARBON DIOXIDE 32.6, BUN 19, CREATININE 1.22, GFR 45, ALK PHOS 225. TODAYS CHEST XRAY REPORTED STABLE FINDINGS OF MILD CONGESTIVE HEART FAILURE WITH TRACE PERSISTENT RIGHT PLEURAL EFFUSION. TODAY, WE WILL START ZYPREXA 5MG X 1 DOSE AND ALBUMIN 25% IV DAILY. OTHERWISE, WE PLAN TO FOLLOW UP WITH AM LABS AND CHEST XRAY AND CONTINUE TO MONITOR PATIENT. - Past Medical Family Social History Past Med/Fam/Surg Hx: No changes since H&P Allergies: Allergies ciprofloxacin [From Cipro] Allergy (Verified 10/17/16 20:09) clonazepam Allergy (Verified 10/17/16 20:09) gabapentin Allergy (Verified 10/17/16 20:09) methylprednisolone Allergy (Verified 10/17/16 20:09) morphine Allergy (Verified 10/17/16 20:09) oxycodone Allergy (Verified 10/17/16 20:09) Sulfa (Sulfonamide Antibiotics) [SULFA] Allergy (Verified 10/17/16 20:09) - Review of Systems ROS: No change since H&P - Vital Signs and I&O's Vital Signs: Temperature 97.8 F Pulse Rate [Right Brachial] 73 Pulse Rate [Left Brachial] 90 Pulse Rate [Left Radial] 84 Pulse Rate 88 Respiratory Rate 18 Blood Pressure [Left Arm] 129/89 Blood Pressure [Right Arm] 116/73 Blood Pressure 134/71 O2 Sat by Pulse Oximetry 96 Intake and Output: Intake & Output 12/20/16 12/21/16 12/22/16 12/23/16 11:59 11:59 11:59 11:59 Intake Total 40 1136 Output Total 3000 2475 Balance -0890 -2699 - Physical Exam Oriented: Not Oriented Eyes: Normal Ear: Normal Nose: Normal Throat: Normal Respiratory: Right, Left, Generalized, Diminished Cardiovascular: Edema. negative: Tachycardia, Bradycardia : Normal. negative: Testicular Pain, Bleeding, Auscultation: Bowel Sounds: Normal Palpation: Normal Tenderness: Diffuse, Moderate. negative: Rebound, Guarding, Rigidity Skin: Red. negative: Wound, Bruising, Ecchymosis Musculoskeletal: Normal Psychiatric: Agitation Mood Description: Anxious Affect: Anxious Speech Pattern: Unclear - Laboratory and Diagnostics Result Diagrams: 12/22/16 05:53 12/22/16 05:53 Labs: 12/20/16 19:57 Urine,Catheterized Urine Culture - Preliminary Laboratory WBC 4.4 X10^3/uL (3.6-10.0) 12/22/16 05:53 RBC 3.51 X10^6/uL (3.5-5.4) 12/22/16 05:53 Hgb 9.9 g/dL (12.0-16.0) L 12/22/16 05:53 Hct 30.7 % (36.0-47.0) L 12/22/16 05:53 MCV 87.6 fL (80.0-100.0) 12/22/16 05:53 MCH 28.3 pg (27.0-34.0) 12/22/16 05:53 MCHC 32.3 g/dL (33.0-35.0) L 12/22/16 05:53 RDW 18.9 % (11.6-16.5) H 12/22/16 05:53 Plt Count 189 X10^3/uL (150.0-450.0) 12/22/16 05:53 MPV 7.4 fL (7.4-11.0) 12/22/16 05:53 Neut % 61.0 % (42.0-75.0) 12/22/16 05:53 Lymph % 20.7 % (21.0-51.0) L 12/22/16 05:53 [place] % 14.4 % (0.0-13.0) H 12/22/16 05:53 Eos % 3.6 % (0.9-2.9) H 12/22/16 05:53 Baso % 0.3 % (0.2-1.0) 12/22/16 05:53 Neut # 2.7 x10^3/uL (2.2-4.8) 12/22/16 05:53 Lymph # 0.9 X10^3/uL (1.3-2.9) L 12/22/16 05:53 [place] # 0.6 x10^3/uL (0.3-0.8) 12/22/16 05:53 Eos # 0.2 x10^3/uL (0.0-0.2) 12/22/16 05:53 Baso # 0.0 X10^3/uL (0.0-0.1) 12/22/16 05:53 Absolute Nucleated RBC 0.1 /100WBC 12/22/16 05:53 Sodium 145 mmol/L (136-145) 12/22/16 05:53 Corrected Sodium TNP 12/22/16 05:53 Potassium 3.6 mmol/L (3.5-5.1) 12/22/16 05:53 Chloride 106 mmol/L (98-107) 12/22/16 05:53 Carbon Dioxide 30.5 mmol/L (21-32) 12/22/16 05:53 BUN 17 mg/dL (7-18) 12/22/16 05:53 Creatinine 1.21 mg/dL (0.55-1.02) H 12/22/16 05:53 Est GFR (MDRD) Af Amer 55 (>60) L 12/22/16 05:53 Est GFR (MDRD) Non-Af 46 (>60) L 12/22/16 05:53 Glucose 94 mg/dL (65-99) 12/22/16 05:53 Calcium 8.5 mg/dL (8.5-10.1) 12/22/16 05:53 Corrected Calcium TNP 12/22/16 05:53 Magnesium 2.0 mg/dL (1.7-2.9) 12/21/16 04:30 Total Bilirubin 0.90 mg/dL (0.2-1.0) 12/22/16 05:53 AST 32 Units/L (15-37) 12/22/16 05:53 ALT 18 Units/L (12-78) 12/22/16 05:53 Alkaline Phosphatase 208 Units/L (46-116) H 12/22/16 05:53 B-Natriuretic Peptide 414 pg/mL (0-79) H 12/20/16 15:41 Total Protein 7.4 g/dL (6.4-8.2) 12/22/16 05:53 Albumin 3.5 g/dL (3.4-5.0) 12/22/16 05:53 Globulin 3.9 g/dL (2.5-4.5) 12/22/16 05:53 Albumin/Globulin Ratio 0.9 Ratio (1.1-2.1) L 12/22/16 05:53 Specimen Type Catherized urine 12/20/16 19:57 Urine Color Yellow (YELLOW) 12/20/16 19:57 Urine Appearance Cloudy (CLEAR) 12/20/16 19:57 Urine pH 7.0 (5.0 - 8.0) 12/20/16 19:57 Ur Specific Mcdermott 1.005 (1.000-1.030) 12/20/16 19:57 Urine Protein 2+ (NEGATIVE) 12/20/16 19:57 Urine Glucose (UA) Negative (NEGATIVE) 12/20/16 19:57 Urine Ketones Negative (NEGATIVE) 12/20/16 19:57 Urine Occult Blood 3+ (NEGATIVE) 12/20/16 19:57 Urine Nitrite Negative (NEGATIVE) 12/20/16 19:57 Urine Bilirubin Negative (NEGATIVE) 12/20/16 19:57 Urine Urobilinogen Normal (NORMAL) 12/20/16 19:57 Ur Leukocyte Esterase 2+ (NEGATIVE) 12/20/16 19:57 Urine RBC 10-12 /HPF (NEGATIVE) 12/20/16 19:57 Urine WBC 35-40 /HPF (NEGATIVE) 12/20/16 19:57 Ur Squamous Epith Cells Rare /HPF (NEGATIVE) 12/20/16 19:57 Amorphous Sediment Trace /HPF (NEGATIVE) 12/20/16 19:57 Urine Bacteria Trace /HPF (NEGATIVE) 12/20/16 19:57 Ur Culture Indicated? Yes/culture set up 12/20/16 19:57 - Plan (1) CHF (congestive heart failure) Status: Chronic Qualifiers: Congestive heart failure type: unspecified congestive heart failure type Congestive heart failure chronicity: acute on chronic Qualified Code(s): I50.9 - Heart failure, unspecified Plan: LASIX 40MG IV BID, SUPPLEMENTAL OXYGEN, MONITOR LABS AND CHEST XRAY (2) UTI (urinary tract infection) Status: Acute Qualifiers: Urinary tract infection type: acute cystitis Hematuria presence: with hematuria Qualified Code(s): N30.01 - Acute cystitis with hematuria Plan: ROCEPHIN 1GM IV DAILY, CONTINUE TO MONITOR (3) Altered mental status Status: Acute Qualifiers: Altered mental status type: transient alteration of awareness Qualified Code(s): R40.4 - Transient alteration of awareness Plan: CONTINUE TO MONITOR
--- NOTE | 2016-12-22 15:22 | RAD ---
History: Shortness of breath Study: Chest single view Findings: Single AP view of the chest is compared to the previous day's study. The heart is enlarged as before. Sternal metallic sutures and prosthetic heart valve are again noted as is the dual lead le ft-sided permanent cardiac pacemaker. Calcification of the tracheal and bronchial cartilages is again noted. There is bilateral mixed interstitial and alveolar disease with thickening of the right minor fissure as before. Impression: Previous heart valve replacement with pacemaker in place. Mild CHF unchanged. Reported By:
[2016-12-22] MEDS ORDERED: DUONEB 0.5 MG/3 MG ONE (20:04)
[2016-12-22] MEDS: CRESTOR TAB 10 MG PO SCH (20:08)
[2016-12-22] MEDS: DESYREL PO SCH (20:08)
[2016-12-22] MEDS: REMERON PO SCH (20:10)
[2016-12-23] MEDS: DUONEB 0.5 MG/3 MG NEB SCH ×5 (04:50→21:33)
[2016-12-23] MEDS ORDERED: DUONEB 0.5 MG/3 MG ONE (04:55)
[2016-12-23 06:44] LABS: BASOPHILS # (AUTO) 0.1 X10^3/uL (0.0-0.1); BASOPHILS % (AUTO) 1.8 % (0.2-1.0); EOSINOPHILS # (AUTO) 0.1 x10^3/uL (0.0-0.2); HEMATOCRIT 31.6 % (36.0-47.0); HEMOGLOBIN 10.1 g/dL (12.0-16.0); LYMPHOCYTES # (AUTO) 0.8 X10^3/uL (1.3-2.9); LYMPHOCYTES % (AUTO) 16.2 % (21.0-51.0); MEAN CORPUSCULAR HEMOGLOBIN 28.1 pg (27.0-34.0); MEAN CORPUSCULAR HGB CONC 31.9 g/dL (33.0-35.0); MEAN CORPUSCULAR VOLUME 88.1 fL (80.0-100.0); MEAN PLATELET VOLUME 7.9 fL (7.4-11.0); MONOCYTES # (AUTO) 0.7 x10^3/uL (0.3-0.8); MONOCYTES % (AUTO) 14.9 % (0.0-13.0); NEUTROPHILS # (AUTO) 3.2 x10^3/uL (2.2-4.8); NEUTROPHILS % (AUTO) 65.1 % (42.0-75.0); PLATELET COUNT 189 X10^3/uL (150.0-450.0); RED BLOOD COUNT 3.59 X10^6/uL (3.5-5.4); RED CELL DISTRIBUTION WIDTH 19.1 % (11.6-16.5); WHITE BLOOD COUNT 4.9 X10^3/uL (3.6-10.0)
[2016-12-23 06:58] LABS: ALANINE AMINOTRANSFERASE 22 Units/L (12-78); ALBUMIN 3.6 g/dL (3.4-5.0); ALKALINE PHOSPHATASE 204 Units/L (46-116); ASPARTATE AMINO TRANSFERASE 34 Units/L (15-37); BLOOD UREA NITROGEN 18 mg/dL (7-18); CALCIUM 8.4 mg/dL (8.5-10.1); CARBON DIOXIDE 32.7 mmol/L (21-32); CHLORIDE 106 mmol/L (98-107); CREATININE 1.27 mg/dL (0.55-1.02); SODIUM 145 mmol/L (136-145); TOTAL PROTEIN 7.4 g/dL (6.4-8.2); eGFR BLACK RACES 52 (>60); eGFR NON BLACK RACES 43 (>60)
--- NOTE | 2016-12-23 08:32 | RAD ---
History: Shortness of breath Study: Portable chest, comparison 12/22/2016 Findings: Portable AP erect chest labeled 6:45 a.m. shows the cardiac silhouette to be enlarged. Post op changes of CABG are noted. A left-sided dual lead cardiac pacer is seen. The pulmonary vasculature is congested. There are hazy ill-defined margins. The appearance suggests f luid overload with interstitial edema. Coexistent inflammatory infiltrates are not radiographically e xcluded. No dense consolidation is seen. Impression: 1. CHF with interstitial pulmonary edema. 2. Inflammatory interstitial infiltrates are not excluded No dense consolidation is seen. Reported By:
[2016-12-23] MEDS: LASIX IVP SCH ×2 (09:48→20:26)
[2016-12-23] MEDS: ZOLOFT PO SCH (09:48)
[2016-12-23] MEDS: TOPROL XL PO SCH (09:48)
[2016-12-23] MEDS: NORCO 10/325 TAB PO SCH ×2 (09:49→20:27)
[2016-12-23] MEDS: PEPCID TAB 20 MG PO SCH ×2 (09:50→20:28)
[2016-12-23] MEDS: NAMENDA TAB 10 MG PO SCH ×2 (09:50→20:27)
[2016-12-23] MEDS: CARDIZEM SR 120 MG PO SCH (09:50)
[2016-12-23] MEDS: ELIQUIS PO SCH ×2 (09:51→20:26)
[2016-12-23] MEDS: ALBUMIN HUMAN 25%- 100ML 100 ML IV SCH (09:58)
[2016-12-23] MEDS: EXELON PATCH 4.6 MG/24 HR TD SCH (10:01)
[2016-12-23] MEDS: ROCEPHIN 1 GM IV PREMIX 1 GM/50 ML IV.SOLN. IV SCH (10:03)
[2016-12-23] MEDS: ROCEPHIN VIAL 1 GM 1 GM in NS 100 ML IV + SPIKE MINIBAG* 100 ML IV SCH (10:04)
[2016-12-23] MEDS: DESYREL PO SCH (20:26)
[2016-12-23] MEDS: CRESTOR TAB 10 MG PO SCH (20:26)
[2016-12-23] MEDS: REMERON PO SCH (20:28)
[2016-12-24] MEDS: DUONEB 0.5 MG/3 MG NEB SCH ×6 (01:15→20:28)
[2016-12-24 07:25] LABS: BASOPHILS # (AUTO) 0.1 X10^3/uL (0.0-0.1); BASOPHILS % (AUTO) 0.9 % (0.2-1.0); EOSINOPHILS # (AUTO) 0.3 x10^3/uL (0.0-0.2); EOSINOPHILS % (AUTO) 4.2 % (0.9-2.9); HEMATOCRIT 33.2 % (36.0-47.0); HEMOGLOBIN 10.5 g/dL (12.0-16.0); LYMPHOCYTES # (AUTO) 0.6 X10^3/uL (1.3-2.9); LYMPHOCYTES % (AUTO) 9.4 % (21.0-51.0); MEAN CORPUSCULAR HGB CONC 31.6 g/dL (33.0-35.0); MEAN CORPUSCULAR VOLUME 88.4 fL (80.0-100.0); MEAN PLATELET VOLUME 7.9 fL (7.4-11.0); MONOCYTES # (AUTO) 0.6 x10^3/uL (0.3-0.8); NEUTROPHILS # (AUTO) 4.9 x10^3/uL (2.2-4.8); NEUTROPHILS % (AUTO) 76.5 % (42.0-75.0); PLATELET COUNT 168 X10^3/uL (150.0-450.0); RED BLOOD COUNT 3.75 X10^6/uL (3.5-5.4); WHITE BLOOD COUNT 6.4 X10^3/uL (3.6-10.0)
[2016-12-24 07:30] LABS: ALANINE AMINOTRANSFERASE 20 Units/L (12-78); ALBUMIN 3.9 g/dL (3.4-5.0); ALKALINE PHOSPHATASE 195 Units/L (46-116); ASPARTATE AMINO TRANSFERASE 33 Units/L (15-37); BLOOD UREA NITROGEN 14 mg/dL (7-18); CALCIUM 8.7 mg/dL (8.5-10.1); CARBON DIOXIDE 33.8 mmol/L (21-32); CHLORIDE 105 mmol/L (98-107); CREATININE 1.19 mg/dL (0.55-1.02); SODIUM 145 mmol/L (136-145); TOTAL PROTEIN 7.9 g/dL (6.4-8.2); eGFR BLACK RACES 56 (>60); eGFR NON BLACK RACES 47 (>60)
[2016-12-24] MEDS: PEPCID TAB 20 MG PO SCH ×2 (09:43→21:54)
[2016-12-24] MEDS: TOPROL XL PO SCH (09:43)
[2016-12-24] MEDS: NAMENDA TAB 10 MG PO SCH ×2 (09:43→21:54)
[2016-12-24] MEDS: ZOLOFT PO SCH (09:43)
[2016-12-24] MEDS: CARDIZEM SR 120 MG PO SCH (09:43)
[2016-12-24] MEDS: ELIQUIS PO SCH ×2 (09:43→21:54)
[2016-12-24] MEDS: ROCEPHIN 1 GM IV PREMIX 1 GM/50 ML IV.SOLN. IV SCH (09:44)
[2016-12-24] MEDS: LASIX IVP SCH ×2 (09:44→21:53)
[2016-12-24] MEDS: EXELON PATCH 4.6 MG/24 HR TD SCH (09:45)
[2016-12-24] MEDS: NORCO 10/325 TAB PO SCH ×2 (09:45→21:53)
[2016-12-24] MEDS: ALBUMIN HUMAN 25%- 100ML 100 ML IV SCH (10:06)
[2016-12-24] MEDS: ZyPREXA TAB 5 MG PO SCH ×2 (11:53→21:54)
--- NOTE | 2016-12-24 13:54 | RAD ---
HISTORY: Shortness of breath, CHF Study: Single-view chest, done portably Comparison: 12/23/2016. Findings: Left-sided pacemaker is again seen with intact leads. There is again evidence of CABG with median lucio rnotomy sutures and sutures marking coronary artery bypass grafts. Trachea is midline. There is cardi omegaly with atherosclerotic calcification in uncoiling of the aortic arch. Pulmonary vascular conges tion is again seen. There are changes of patchy bilateral edema or infiltrate present. No significant pleural effusion is seen. There is no evidence of pneumothorax. Osseous structures are intact. IMPRESSION: Cardiomegaly with pulmonary vascular congestion and bilateral patchy foci of edema or infiltrate. Fin dings are not significantly changed compared to the prior studies. Reported By:
[2016-12-24] MEDS: ATIVAN TAB 0.5 MG PO PRN (16:35)
[2016-12-24] MEDS: CRESTOR TAB 10 MG PO SCH (21:54)
[2016-12-24] MEDS: DESYREL PO SCH (21:54)
[2016-12-24] MEDS: REMERON PO SCH (21:54)
[2016-12-25] MEDS: DUONEB 0.5 MG/3 MG NEB SCH ×4 (00:44→13:00)
[2016-12-25 06:20] LABS: BASOPHILS % (AUTO) 0.9 % (0.2-1.0); EOSINOPHILS # (AUTO) 0.2 x10^3/uL (0.0-0.2); EOSINOPHILS % (AUTO) 4.1 % (0.9-2.9); HEMATOCRIT 28.2 % (36.0-47.0); LYMPHOCYTES # (AUTO) 0.6 X10^3/uL (1.3-2.9); LYMPHOCYTES % (AUTO) 11.6 % (21.0-51.0); MEAN CORPUSCULAR HEMOGLOBIN 28.5 pg (27.0-34.0); MEAN CORPUSCULAR HGB CONC 32.1 g/dL (33.0-35.0); MEAN CORPUSCULAR VOLUME 88.9 fL (80.0-100.0); MEAN PLATELET VOLUME 7.9 fL (7.4-11.0); MONOCYTES # (AUTO) 0.6 x10^3/uL (0.3-0.8); MONOCYTES % (AUTO) 12.1 % (0.0-13.0); NEUTROPHILS # (AUTO) 3.6 x10^3/uL (2.2-4.8); NEUTROPHILS % (AUTO) 71.3 % (42.0-75.0); PLATELET COUNT 174 X10^3/uL (150.0-450.0); RED BLOOD COUNT 3.17 X10^6/uL (3.5-5.4); RED CELL DISTRIBUTION WIDTH 18.8 % (11.6-16.5); WHITE BLOOD COUNT 5.1 X10^3/uL (3.6-10.0)
[2016-12-25 06:34] LABS: ALANINE AMINOTRANSFERASE 14 Units/L (12-78); ALBUMIN 3.5 g/dL (3.4-5.0); ALKALINE PHOSPHATASE 178 Units/L (46-116); ASPARTATE AMINO TRANSFERASE 20 Units/L (15-37); BLOOD UREA NITROGEN 17 mg/dL (7-18); CALCIUM 8.6 mg/dL (8.5-10.1); CARBON DIOXIDE 34.6 mmol/L (21-32); CHLORIDE 103 mmol/L (98-107); CREATININE 1.32 mg/dL (0.55-1.02); SODIUM 145 mmol/L (136-145); TOTAL PROTEIN 7.1 g/dL (6.4-8.2); eGFR BLACK RACES 50 (>60); eGFR NON BLACK RACES 41 (>60)
--- NOTE | 2016-12-25 08:36 | RAD ---
HISTORY: Shortness of breath, CHF Study: Single-view chest, done portably Comparison: 12/24/2016. Findings: Left-sided pacemaker is again seen with intact leads. There are again changes of CABG. Trachea is mid line. The heart size is again enlarged with atherosclerotic calcification and uncoiling of the aortic arch. Patchy bilateral foci of edema or infiltrate are present with some improvement in aeration in the right lower lobe and left perihilar region compared to prior studies. There is still considerable density present in the right upper lobe which is unchanged. No evidence of pleural effusion is seen. There is no evidence of pneumothorax. Osseous structures are intact. IMPRESSION: Cardiomegaly with patchy bilateral foci of edema or infiltrate. Improvement is noted bilaterally. Reported By:
[2016-12-25] MEDS: ALBUMIN HUMAN 25%- 100ML 100 ML IV SCH (10:50)
[2016-12-25] MEDS: ROCEPHIN 1 GM IV PREMIX 1 GM/50 ML IV.SOLN. IV SCH (10:51)
[2016-12-25] MEDS: NAMENDA TAB 10 MG PO SCH (10:53)
[2016-12-25] MEDS: NORCO 10/325 TAB PO SCH (10:53)
[2016-12-25] MEDS: LASIX IVP SCH (10:53)
[2016-12-25] MEDS: ZOLOFT PO SCH (10:53)
[2016-12-25] MEDS: PEPCID TAB 20 MG PO SCH (10:53)
[2016-12-25] MEDS: ZyPREXA TAB 5 MG PO SCH (10:54)
[2016-12-25] MEDS: ELIQUIS PO SCH (10:54)
[2016-12-25] MEDS: CARDIZEM SR 120 MG PO SCH (10:54)
[2016-12-25] MEDS: TOPROL XL PO SCH (10:54)
[2016-12-25] MEDS: EXELON PATCH 4.6 MG/24 HR TD SCH (10:55)
[2016-12-25 14:17] VITALS: BP 119/59
[2016-12-25 15:14] LABS: ABG BASE EXCESS 11.4 mmol/L (-2.0-2.0)
[2016-12-25 15:15] LABS: ABG HCO3 39.3 mmol/L (22-26)
[2016-12-25 15:16] LABS: ABG ALLEN TEST POS
== END 2016-12-25 16:15 | DRG 292 ==
LOC: OBS 12:37 → MED/SURG 12-24 12:30
PROVIDERS: ADMIT Internal Medicine; ATTEND Internal Medicine
DX: I50.9 Heart failure, unspecified (principal); N30.01 Acute cystitis with hematuria; R06.03 Acute respiratory distress; R53.1 Weakness; R06.02 Shortness of breath; R60.0 Localized edema; R40.4 Transient alteration of awareness; B95.7 Other staphylococcus as the cause of diseases classified elsewhere
CPT/HCPCS: 36415; 36600; 71010; 80053; 81001; 82803; 83735; 83880; 84132; 85025; 87086; 87088; 87186; 94640; 94660; 94760; 99238; A4216; A4222; A4618; A7030; P9047; J0696; J1940; J3480; J7620

== ENCOUNTER → 2016-12-27 | Outpatient (CLI) | payer OTHER, MEDICARE ==
[2016-12-25 14:17] VITALS: BP 119/59
--- NOTE | 2016-12-27 14:29 | RAD ---
HISTORY: Shortness of breath Study: Chest AP portable Comparison: 12/25/2016 Findings: The patient is status post median sternotomy and CABG. There is a pacemaker present on the left obscu ring a portion of the left mid lung. The heart remains enlarged. Mild pulmonary venous congestion is present. There has been resolution of the previously noted patchy infiltrates. Foci of subsegmental a telectasis are present in the right upper lobe. The remainder of the lung wilson are clear. IMPRESSION: Cardiomegaly with mild pulmonary venous congestion Resolution of the previously noted alveolar infiltrates Foci of subsegmental atelectasis in the right upper lobe Reported By:
[2016-12-27 15:31] LABS: BASOPHILS # (AUTO) 0.1 X10^3/uL (0.0-0.1); BASOPHILS % (AUTO) 0.8 % (0.2-1.0); EOSINOPHILS # (AUTO) 0.4 x10^3/uL (0.0-0.2); EOSINOPHILS % (AUTO) 5.3 % (0.9-2.9); HEMATOCRIT 32.2 % (36.0-47.0); HEMOGLOBIN 10.2 g/dL (12.0-16.0); LYMPHOCYTES # (AUTO) 0.5 X10^3/uL (1.3-2.9); LYMPHOCYTES % (AUTO) 7.7 % (21.0-51.0); MEAN CORPUSCULAR HEMOGLOBIN 27.9 pg (27.0-34.0); MEAN CORPUSCULAR HGB CONC 31.7 g/dL (33.0-35.0); MEAN PLATELET VOLUME 7.5 fL (7.4-11.0); MONOCYTES # (AUTO) 0.7 x10^3/uL (0.3-0.8); NEUTROPHILS # (AUTO) 5.3 x10^3/uL (2.2-4.8); NEUTROPHILS % (AUTO) 76.2 % (42.0-75.0); PLATELET COUNT 215 X10^3/uL (150.0-450.0); RED BLOOD COUNT 3.65 X10^6/uL (3.5-5.4); RED CELL DISTRIBUTION WIDTH 18.5 % (11.6-16.5)
[2016-12-27 15:47] LABS: ALANINE AMINOTRANSFERASE 19 Units/L (12-78); ALBUMIN 3.9 g/dL (3.4-5.0); ALKALINE PHOSPHATASE 211 Units/L (46-116); ASPARTATE AMINO TRANSFERASE 30 Units/L (15-37); BLOOD UREA NITROGEN 21 mg/dL (7-18); CALCIUM 9.3 mg/dL (8.5-10.1); CARBON DIOXIDE 34.1 mmol/L (21-32); CHLORIDE 101 mmol/L (98-107); COR NA(FOR HYPERGLY) 146 mmol/L (136-145); CREATININE 1.42 mg/dL (0.55-1.02); SODIUM 145 mmol/L (136-145); TOTAL PROTEIN 8.2 g/dL (6.4-8.2); eGFR BLACK RACES 46 (>60); eGFR NON BLACK RACES 38 (>60)
== END | disposition home or self-care (01) | DRG 191 ==
LOC: RAD 08:35
PROVIDERS: ATTEND Internal Medicine
DX: J44.9 Chronic obstructive pulmonary disease, unspecified (principal); J98.11 Atelectasis; I51.7 Cardiomegaly
CPT/HCPCS: 36415; 71010; 80053; 85025

== ENCOUNTER 2016-12-28 13:49 | Emergency (ER) | payer OTHER, MEDICARE ==
[2016-12-28 14:04] VITALS: BMI 33.7
--- NOTE | 2016-12-28 14:31 | DR.EXTPAIN ---
HPI - Time seen Time seen: 13:50 - PCP Primary Care Physician: AMALIA MCCONNELL - HPI Comment HPI Comment: Fell - Complaint/Symptoms Chief Complaint:: CHARGE NURSE STATES PT WAS IN ROOM ADN PT GOT UP WITHOUT ASSISTANCE AND SHE WAS FOUND ON THE GROUND AND THAT HER LEFT LEG IS ROTATED OUT .. Self Treatment fo Chief Complaint: PT HAS SHORTENING AND ROTATION TO HER LEG FOOT AND POSITVE PEDAL PULSES NOTED .....BR - Nurses notes reviewed Nurses Notes Review: Yes - Source History Provided: Long Term - Mode of arrival Mode of Arrival: Stretcher - Timing Onset of Chief Complaint: 12/28/16 - Context History of: None - Associated signs and symptoms Associated Signs and Symptoms: Other (External rotation on RLE.) PMH - PMH Past Medical History: Yes Past Medical History: Alzheimers, Anemia, Anxiety, CHF, Coronary Artery Disease , Dementia, Depression, Dyslipidemia, GERD, Hypertension Past Medical History Comment: ATRIAL FIB.. Past Surgical History: Yes Surgical History: CABG/Valve Surgery, Hysterectomy, Joint Replacement, Ortho Surgery Past Surgical History Comment: PACEMAKER. - Family History History of Family Medical Conditions: Yes Family Medical History: Diabetes Mellitus, Cancer, Hypertension - Social History Does patient currently use any type of tobacco product: No Have you used tobacco products in the last 12 months: No Type of Tobacco Use: None Does any household member use tobacco: No Alcohol Use: None Do you use any recreational Drugs:: No Lives With: Other Lives Where: Long Term - infectious screening In the last 2 months have you had wt loss of >10#?: NO Have you had fever, night sweats or hemotysis?: No Have you traveled outside the country in the last 6 months?: No Isolation: Standard ROS - Review of Systems Constitutional: No Symptoms Reported Eyes: No Symptoms Reported ENTM: No Symptoms Reported Respiratoy: No Symptoms Reported Cardiovascular: No Symptoms Reported Gastrointestinal/Abdominal: No Symptoms Reported Genitourinary: No Symptoms Reported Neurological: No Symptoms Reported Musculoskeletal: Other (external rotation of RLE) Integumentary: No Symptoms Reported Hematologic/Lymphatic: No Symptoms Reported Endocrine: No Symptoms Reported Psychiatric: No Symptoms Reported All Other Systems: Reviewed and Negative PE - Vital Signs Vitals: Pulse Rate 95 Respiratory Rate 22 Blood Pressure [Left Arm] 119/59 Blood Pressure [Right Arm] 132/62 Blood Pressure 146/65 O2 Sat by Pulse Oximetry 93 - General Limitations: No Limitations General Appearance: Alert, In No Apparent Distress - Head Head Exam: Normal Inspection - Eyes Eye exam: Normal Appearance - ENT ENT Exam: Normal Exam - Neck Neck Exam: Normal Inspection, Full ROM - Chest Chest Inspection: Normal Inspection - Respiratory Respiratory Exam: Normal Lung Sounds Bilat - Cardiovascular Cardiovascular Exam: Regular Rate, Normal Rhythm - Abdominal Exam Abdominal Exam: Normal Inspection, Normal Bowel Sounds, Soft - Extremities Extremities Exam: Normal Capillary Refill, Other (External rotation of the RLE) - Back Back Exam: Normal Inspection - Neurological Neurological Exam: Alert - Psychiatric Psychiatric Exam: Normal Affect, Normal Mood - Skin Skin Exam: Warm, Dry MDM - Differential Diagnosis Differential Diagnosis: Fracture ROR - XRAY XRAY Interpreted by: Radiologist (Rt. Hip: No acute fracture noted. Brain CT: no acute intracranial pathology noted ) - Diagnosis Discharge Problem: Fall - Discharge Plan Disposition: 03 [facility] Condition: Stable - Follow ups/Referrals Follow ups/Referrals: Gomez Tobias [Primary Care Provider] - 3 days - Instructions
[2016-12-28] MEDS ORDERED: DILAUDID INJ IM ONE (14:40)
[2016-12-28] MEDS ORDERED: DILAUDID INJ ONE (14:41)
--- NOTE | 2016-12-28 15:16 | RAD ---
Examination: Right hip, two views History: Fell at intermediate Findings: 2 frontal views of the right hip were obtained. No orthogonal views were obtained. Bone den sity is normal for age. There is no obvious fracture or dislocation. The femoral head is in normal po sition. Impression: No acute hip injury identified although standard lateral views were not obtained. Additio nal imaging recommended if significant hip injury remains a clinical concern. Reported By:
--- NOTE | 2016-12-28 15:21 | CT ---
CT HEAD WITHOUT CONTRAST CLINICAL HISTORY: 81-year-old female status post fall at skilled nursing. COMPARISON: CT head 11/11/2016. TECHNIQUE: Multiple, non-contrasted axial CT images were obtained from the skull base to the cranial vertex. Coronal and sagittal reformats were performed. FINDINGS: There are no abnormal intra- or extra-axial fluid collections, midline shift, or mass effec t. Jules-white differentiation is normal. Global cortical involutional changes are present that are ad vanced for the patient's stated age. The ventricular system is enlarged but commensurate with the deg ree of sulcal prominence. Periventricular and supraventricular white matter hypodensity is present th at is nonspecific in appearance, but most likely to represent microvascular ischemic changes. Senesce nt calcifications in the basal ganglia on the right. Atherosclerotic vascular calcification is presen t within the carotid siphons and distal vertebral arteries. Trace mucosal thickening within the maxillary sinuses left greater the right. The remaining imaged pa ranasal sinuses, mastoid air cells, and tympanic spaces are clear. IMPRESSION: 1. No definite evidence of an acute intracranial process. If clinical concern persists, consider MRI/ MRA brain. 2. Moderate microvascular white matter ischemic changes, with associated volume loss. Reported By:
[2016-12-28 16:04] VITALS: BP 117/63
--- NOTE | 2016-12-28 16:57 | RAD ---
Right femur, three views Indication: Fall with leg pain Comparison: None Findings: No acute fracture or malalignment of the right femur is identified. Imaged portions of the total-knee arthroplasty appear grossly well positioned on the single provided AP view. However, no la teral views of the distal femur were obtained for review. Mild nonspecific soft tissue edema is prese nt along the lateral aspect of the knee. Impression: No definite acute osseous abnormality of the right femur is identified, given limitations as detailed above. Reported By:
--- NOTE | 2016-12-28 17:00 | RAD ---
Right tibia and fibula, two views Indication: Fall with leg pain Comparison: None Findings: No acute fracture or malalignment of the tibia or fibula is identified. The total-knee arth roplasty appears grossly well positioned without definite acute complication. There is nonspecific, g eneralized subcutaneous edema of the lower leg. Impression: No definite acute radiographic abnormality of the right lower leg. Reported By:
== END 2016-12-28 18:05 ==
LOC: ER 13:59
DX: M25.551 Pain in right hip (principal); W19.XXXA Unspecified fall, initial encounter
CPT/HCPCS: 70450; 73501; 73552; 73590; 96372; 99283

== ENCOUNTER → 2016-12-30 | Outpatient (CLI) | payer OTHER, MEDICARE ==
[2016-12-28 16:04] VITALS: BP 117/63
[2016-12-30 09:34] LABS: BASOPHILS # (AUTO) 0.1 X10^3/uL (0.0-0.1); BASOPHILS % (AUTO) 1.2 % (0.2-1.0); EOSINOPHILS % (AUTO) 0.3 % (0.9-2.9); HEMATOCRIT 22.6 % (36.0-47.0); HEMOGLOBIN 7.3 g/dL (12.0-16.0); LYMPHOCYTES # (AUTO) 0.9 X10^3/uL (1.3-2.9); MEAN CORPUSCULAR HEMOGLOBIN 28.2 pg (27.0-34.0); MEAN CORPUSCULAR HGB CONC 32.3 g/dL (33.0-35.0); MEAN CORPUSCULAR VOLUME 87.2 fL (80.0-100.0); MEAN PLATELET VOLUME 7.6 fL (7.4-11.0); MONOCYTES # (AUTO) 1.1 x10^3/uL (0.3-0.8); MONOCYTES % (AUTO) 18.8 % (0.0-13.0); NEUTROPHILS # (AUTO) 3.8 x10^3/uL (2.2-4.8); NEUTROPHILS % (AUTO) 64.7 % (42.0-75.0); PLATELET COUNT 178 X10^3/uL (150.0-450.0); RED BLOOD COUNT 2.59 X10^6/uL (3.5-5.4); RED CELL DISTRIBUTION WIDTH 18.5 % (11.6-16.5); WHITE BLOOD COUNT 5.9 X10^3/uL (3.6-10.0)
[2016-12-30 09:49] LABS: ALANINE AMINOTRANSFERASE 20 Units/L (12-78); ALBUMIN 3.1 g/dL (3.4-5.0); ALKALINE PHOSPHATASE 181 Units/L (46-116); ASPARTATE AMINO TRANSFERASE 40 Units/L (15-37); BLOOD UREA NITROGEN 24 mg/dL (7-18); CALCIUM 8.6 mg/dL (8.5-10.1); CARBON DIOXIDE 36.1 mmol/L (21-32); CHLORIDE 107 mmol/L (98-107); COR CA(FOR HYPOALB) 9.3 mg/dL (8.5-10.1); SODIUM 149 mmol/L (136-145); TOTAL PROTEIN 6.8 g/dL (6.4-8.2); eGFR BLACK RACES 43 (>60); eGFR NON BLACK RACES 36 (>60)
--- NOTE | 2016-12-30 10:12 | RAD ---
Examination: AP chest History: COPD, hypertension, CHF Comparison reference: 12/27/2016 Findings: Continued cardiomegaly, postsurgical changes and stable position of pacemaker. Suggestion o f cardiac valve prosthesis. Central pulmonary vascular congestion again noted with persistent but imp roving atelectasis in the right upper lobe. Impression: Stable cardiomegaly. Persistent but improving atelectasis right upper lobe. Continued fol low-up suggested. Reported By:
[2016-12-30 10:22] LABS: PLATELET MORPHOLOGY COMMENT NORMAL (NORMAL)
== END ==
LOC: RAD 08:41
PROVIDERS: ATTEND Internal Medicine
DX: J44.9 Chronic obstructive pulmonary disease, unspecified (principal); I48.91 Unspecified atrial fibrillation; R60.1 Generalized edema; I10 Essential (primary) hypertension; Z79.899 Other long term (current) drug therapy
CPT/HCPCS: 36415; 71010; 80053; 85025

== ENCOUNTER 2016-12-31 15:15 | Inpatient (IN) | payer OTHER, MEDICARE ==
[2016-12-31] MEDS ORDERED: NS 1/2 1000 ML IV 1,000 ML IV SCH (15:30)
[2016-12-31] MEDS ORDERED: NS 1000 ML 1,000 ML IV SCH (16:48)
[2016-12-31] MEDS ORDERED: ZOFRAN INJ 4 MG VIAL IVP PRN (16:48)
[2016-12-31] MEDS ORDERED: DEMEROL INJ IVP PRN (16:48)
[2016-12-31] MEDS ORDERED: NORCO 10/325 TAB PO SCH (16:48)
[2016-12-31 17:31] LABS: ALBUMIN 3.2 g/dL (3.4-5.0); BASOPHILS # (AUTO) 0.1 X10^3/uL (0.0-0.1); BASOPHILS % (AUTO) 1.2 % (0.2-1.0); CALCIUM 8.7 mg/dL (8.5-10.1); COR CA(FOR HYPOALB) 9.3 mg/dL (8.5-10.1); CREATININE 1.75 mg/dL (0.55-1.02); EOSINOPHILS # (AUTO) 0.1 x10^3/uL (0.0-0.2); EOSINOPHILS % (AUTO) 0.9 % (0.9-2.9); HEMATOCRIT 24.3 % (36.0-47.0); HEMOGLOBIN 7.6 g/dL (12.0-16.0); LYMPHOCYTES # (AUTO) 1.1 X10^3/uL (1.3-2.9); LYMPHOCYTES % (AUTO) 11.8 % (21.0-51.0); MEAN CORPUSCULAR HGB CONC 31.4 g/dL (33.0-35.0); MEAN CORPUSCULAR VOLUME 89.3 fL (80.0-100.0); MEAN PLATELET VOLUME 7.9 fL (7.4-11.0); MONOCYTES # (AUTO) 1.5 x10^3/uL (0.3-0.8); MONOCYTES % (AUTO) 16.6 % (0.0-13.0); NEUTROPHILS # (AUTO) 6.3 x10^3/uL (2.2-4.8); NEUTROPHILS % (AUTO) 69.5 % (42.0-75.0); PLATELET COUNT 210 X10^3/uL (150.0-450.0); RED BLOOD COUNT 2.72 X10^6/uL (3.5-5.4); RED CELL DISTRIBUTION WIDTH 18.9 % (11.6-16.5); TOTAL PROTEIN 7.3 g/dL (6.4-8.2)
[2016-12-31 17:36] LABS: ANISOCYTOSIS SLIGHT; HYPOCHROMASIA SLIGHT; PLATELET MORPHOLOGY COMMENT NORMAL (NORMAL)
[2016-12-31 18:19] VITALS: BMI 28.1
[2016-12-31] MEDS ORDERED: NS 1/2 1000 ML IV 1,000 ML IV ONE (18:26)
[2016-12-31 19:44] LABS: BILIRUBIN,URINE NEGATIVE (NEGATIVE); BLOOD/HEMOGLOBIN,URINE 4+ (NEGATIVE); GLUCOSE, URINE NEGATIVE (NEGATIVE); KETONES,URINE NEGATIVE (NEGATIVE); LEUKOCYTE ESTERASE ,URINE 1+ (NEGATIVE); NITRITES,URINE NEGATIVE (NEGATIVE); PROTEIN,URINE 3+ (NEGATIVE); UROBILINOGEN,URINE 1+ (NORMAL)
[2016-12-31 20:01] LABS: AMORPHOUS SEDIMENT,UR 1+ /HPF (NEGATIVE); APPEARANCE,URINE SLIGHTLY HAZY (CLEAR); BACTERIA,URINE 1+ /HPF (NEGATIVE); COLOR,URINE YELLOW (YELLOW); SQUAMOUS EPITHELIAL CELL,UR RARE /HPF (NEGATIVE)
[2016-12-31 20:02] LABS: MUCUS,URINE MODERATE /HPF (NEGATIVE)
[2016-12-31 21:32] VITALS: BP 139/59
--- NOTE | 2017-01-24 22:30 | DR.CARTERS ---
Short Stay Summary - Short Stay Summary for: Short Stay Summary for Date of:: 12/31/16 - Admission Date Date of Admission: 12/31/16 - Discharge Date Discharge Date: 12/31/16 - Admission Diagnoses (1) Femur fracture Status: Acute (2) Arthritis Status: Chronic (3) Coronary artery disease Status: Chronic (4) History of atrial fibrillation Status: Chronic (5) Hypertension Status: Chronic - Hospital Course Hospital Course: PATIENT WAS ADMITTED SECONDARY TO FEMUR FRACTURE. PATIENT'S DAUGHTER DID REQUEST TRANSFER TO [place] DUE TO PATIENT HAS CAD WITH AFIB ON ELIGUIS THERAPY. PATIENT WAS TRANSFERRED FOR FURTHER CARE. - Discharge Plan Disposition: [facility] Condition: Stable - Follow up/Referrals Follow up/Referrals: Gomez Tobias [Primary Care Provider] - - Instructions
== END 2016-12-31 21:15 | disposition short-term general hospital (02) | DRG 534 ==
LOC: ICU 15:15
PROVIDERS: ADMIT Internal Medicine; ATTEND Internal Medicine
DX: S72.8X2A Other fracture of left femur, initial encounter for closed fracture (principal); X58.XXXA Exposure to other specified factors, initial encounter; Y92.9 Unspecified place or not applicable; I48.91 Unspecified atrial fibrillation; Z95.0 Presence of cardiac pacemaker; Z79.01 Long term (current) use of anticoagulants; M13.88 Other specified arthritis, other site; I25.10 Atherosclerotic heart disease of native coronary artery without angina pectoris; I10 Essential (primary) hypertension
CPT/HCPCS: 36415; 80053; 81001; 85025; 87086; 87088; 87186; 93005; 99221; A4216; A4222

== ENCOUNTER → 2016-12-31 | Outpatient (CLI) | payer OTHER, MEDICARE ==
[2016-12-28 16:04] VITALS: BP 117/63
--- NOTE | 2016-12-31 13:16 | RAD ---
Examination: Left hip, two views History: None given Findings: 2 frontal views of the hip demonstrate no evidence for fracture, dislocation or other acute process. The femoral head is in normal position. The joint space is unremarkable for advanced age. N o periarticular calcification is noted. Impression: No significant abnormality noted. An additional true lateral view of the left hip would b e helpful for more accurate exclusion of significant pathology. Reported By:
--- NOTE | 2016-12-31 13:17 | RAD ---
Indication: Fall and pain Exam: Left knee series Technique: AP and lateral views Findings: There is a transverse fracture along the diametaphyseal region of the distal femur. The dis estela fragment is moderately displaced posteriorly. There is a metallic prosthesis in the femoral condy le which remains in good position . There is a prosthesis along the tibial plateau which is held in p lace with with methylmethacrylate and appears scan good position. There is moderate soft tissue swell ing around the knee anteriorly extending around the knee with an associated moderate joint effusion. Impression: Status post total left knee replacement with a moderately displaced transverse fracture along the dis estela femur. Extensive soft tissue swelling around the knee anteriorly and associated moderate joint effusion. Reported By:
== END | disposition home or self-care (01) ==
LOC: RAD 12:15
PROVIDERS: ATTEND Internal Medicine
DX: M25.552 Pain in left hip (principal); M25.562 Pain in left knee; Z96.652 Presence of left artificial knee joint; S72.8X2A Other fracture of left femur, initial encounter for closed fracture; X58.XXXA Exposure to other specified factors, initial encounter
CPT/HCPCS: 73501; 73560

== ENCOUNTER → 2017-01-07 | Outpatient (CLI) | payer OTHER, MEDICARE ==
[2016-12-31 21:32] VITALS: BP 139/59
--- NOTE | 2017-01-07 11:12 | RAD ---
HISTORY: Follow-up fracture, ORIF Study: AP and lateral left knee Comparison: 12/31/2016 Findings: The previously noted distal femoral fracture has undergone open reduction and internal fixation with 3 orthopedic screws. There is still slight posterior displacement of the distal fracture fragment. Th e patient is again noted to be status post total knee arthroplasty. IMPRESSION: As above Reported By:
== END ==
LOC: RAD 10:40
PROVIDERS: ATTEND Internal Medicine
DX: M25.562 Pain in left knee (principal); Z96.652 Presence of left artificial knee joint
CPT/HCPCS: 73560; A4222

== ENCOUNTER → 2017-01-29 | Outpatient (CLI) | payer OTHER, MEDICARE ==
[2016-12-31 21:32] VITALS: BP 139/59
--- NOTE | 2017-01-29 19:28 | RAD ---
Examination: Left forearm, two views History: Pain with movement Findings: There is no definite fracture, dislocation or contour deformity involving radius or ulna. T here is soft tissue swelling involving the forearm. No radiopaque foreign body is noted. Impression: No acute osseous injury demonstrated. Nonspecific soft tissue swelling. Reported By:
--- NOTE | 2017-01-29 19:33 | RAD ---
Examination: Left hand, five views History: Pain with movement Findings: There is no evidence for acute fracture or dislocation. There is joint narrowing with osteo phyte formation at several joints consistent with osteoarthritis. There is soft tissue calcification involving the triangular fibrocartilage at the wrist. No erosive arthropathy, fracture or dislocation is noted. There is marked soft tissue swelling involving the wrist and dorsum of the hand. Impression: 1. Osteoarthritis. 2. Wrist chondrocalcinosis consistent with CPPD. 3. Marked nonspecific soft tissue swelling. This may be traumatic or inflammatory. Correlate clinical ly. Reported By:
== END ==
LOC: RAD 17:10
PROVIDERS: ATTEND Internal Medicine
DX: M79.89 Other specified soft tissue disorders (principal); M19.042 Primary osteoarthritis, left hand
CPT/HCPCS: 73090; 73130

== ENCOUNTER → 2017-06-22 | Outpatient (CLI) | payer OTHER, MEDICARE, MEDICAID | LOC: RAD 12:32 | PROVIDERS: ATTEND Internal Medicine | DX: I50.9 Heart failure, unspecified (principal); I48.91 Unspecified atrial fibrillation; I25.10 Atherosclerotic heart disease of native coronary artery without angina pectoris | CPT/HCPCS: 93306 ==

== ENCOUNTER 2019-03-08 12:12 | Inpatient (IN) ==
[2019-03-08 15:05] LABS: BASOPHILS # (AUTO) 0.1 X10^3/uL (0.0-0.1); BASOPHILS % (AUTO) 0.7 % (0.2-1.0); EOSINOPHILS # (AUTO) 0.1 x10^3/uL (0.0-0.2); HEMATOCRIT 38.5 % (36.0-47.0); HEMOGLOBIN 12.9 g/dL (12.0-16.0); LYMPHOCYTES # (AUTO) 2.7 X10^3/uL (1.3-2.9); LYMPHOCYTES % (AUTO) 31.3 % (21.0-51.0); MEAN CORPUSCULAR HGB CONC 33.5 g/dL (33.0-35.0); MEAN CORPUSCULAR VOLUME 92.3 fL (80.0-100.0); MEAN PLATELET VOLUME 7.1 fL (7.4-11.0); MONOCYTES # (AUTO) 0.8 x10^3/uL (0.3-0.8); MONOCYTES % (AUTO) 9.5 % (0.0-13.0); NEUTROPHILS % (AUTO) 57.5 % (42.0-75.0); PLATELET COUNT 298 X10^3/uL (150.0-450.0); RED BLOOD COUNT 4.17 X10^6/uL (3.5-5.4); RED CELL DISTRIBUTION WIDTH 15.1 % (11.6-16.5); WHITE BLOOD COUNT 8.7 X10^3/uL (3.6-10.0)
[2019-03-08] MEDS ORDERED: MORPHINE SULFATE INJ 2 MG INJ IVP PRN (15:06)
[2019-03-08] MEDS ORDERED: MORPHINE SULFATE INJ 2 MG INJ ONE (15:07)
[2019-03-08 15:19] LABS: ALANINE AMINOTRANSFERASE 26 Units/L (12-78); ALBUMIN 3.3 g/dL (3.4-5.0); ALKALINE PHOSPHATASE 95 Units/L (46-116); ASPARTATE AMINO TRANSFERASE 23 Units/L (15-37); BLOOD UREA NITROGEN 11 mg/dL (7-18); CALCIUM 9.4 mg/dL (8.5-10.1); CARBON DIOXIDE 23.9 mmol/L (21-32); CHLORIDE 106 mmol/L (98-107); CREATININE 0.85 mg/dL (0.55-1.02); SODIUM 143 mmol/L (136-145); TOTAL PROTEIN 7.7 g/dL (6.4-8.2); eGFR NON BLACK RACES > 60 (>60)
[2019-03-08 15:31] LABS: BILIRUBIN,URINE NEGATIVE (NEGATIVE); BLOOD/HEMOGLOBIN,URINE NEGATIVE (NEGATIVE); GLUCOSE, URINE NEGATIVE (NEGATIVE); KETONES,URINE 1+ (NEGATIVE); LEUKOCYTE ESTERASE ,URINE 1+ (NEGATIVE); NITRITES,URINE NEGATIVE (NEGATIVE); PROTEIN,URINE NEGATIVE (NEGATIVE); UROBILINOGEN,URINE NORMAL (NORMAL)
[2019-03-08] MEDS: INVANZ INJ 1 GM VIAL 1 GM in NS 100 ML IV + SPIKE MINIBAG* 100 ML IV SCH (15:35)
[2019-03-08] MEDS: NS 1000 ML 1,000 ML IV SCH (15:35)
[2019-03-08 15:47] LABS: APPEARANCE,URINE SLIGHTLY HAZY (CLEAR); COLOR,URINE YELLOW (YELLOW)
[2019-03-08 15:48] LABS: BACTERIA,URINE NEGATIVE /HPF (NEGATIVE); RBC,URINE NONE SEEN /HPF (0-3); SQUAMOUS EPITHELIAL CELL,UR FEW /HPF (NEGATIVE)
[2019-03-08 16:11] VITALS: BMI 24.7
[2019-03-08] MEDS ORDERED: ZyPREXA TAB 5 MG ONE (16:36)
[2019-03-08] MEDS ORDERED: ZyPREXA TAB 5 MG PO SCH (17:00)
[2019-03-08] MEDS ORDERED: PHARMACY CONSULT LTC MEDICATIONS XX SCH (17:00)
--- NOTE | 2019-03-08 18:06 | RAD ---
HISTORYCPSTUDYCHEST, 1 VIEWCOMPARISONJanuary 2019FINDINGSThe trachea is midline. The cardiac silhouette is unremarkable . The lung apices are partially obscured by overlying soft tissues. Otherwise the remaining visualized lungs are relatively clear without focal infiltrate or effusion. The aortic knob is partially calcified. A left-sided cardiac pacemaker is demonstrated. Postoperative changes of midline sternotomy are noted. Surgical clips project over the right upper quadrant of the abdomen.IMPRESSIONNo acute cardiopulmonary disease.Electronically signed by: GWENDOLYN CEBALLOS (Mar 08, 2019 18:04:51)
[2019-03-08] MEDS ORDERED: LEXAPRO ONE (19:49)
[2019-03-08] MEDS ORDERED: CALCIUM CARBONATE VITAMIN D3 PO SCH (21:00)
[2019-03-08] MEDS ORDERED: PATIENT'S HOME MEDICATION (Zinc 50 MG) PO SCH (21:00)
[2019-03-08] MEDS ORDERED: TRAZODONE 150 MG PO SCH (21:00)
[2019-03-08] MEDS ORDERED: PATIENT'S HOME MEDICATION (Escitalopram Oxalate [Lexapro] 20 MG) PO SCH (21:00)
[2019-03-08] MEDS ORDERED: VITAMIN C PO SCH (21:00)
[2019-03-08] MEDS: COLACE CAP 100 MG PO SCH (22:22)
[2019-03-08] MEDS: DESYREL PO SCH (22:23)
[2019-03-08] MEDS: ELIQUIS PO SCH (22:23)
[2019-03-08] MEDS: ZINC SULFATE PO SCH (22:23)
[2019-03-08] MEDS: LEXAPRO PO SCH (22:24)
[2019-03-08] MEDS: RisperDAL TAB 1 MG PO SCH (22:24)
[2019-03-08] MEDS: OSCAL+D or CALTRATE+D PO SCH (22:24)
[2019-03-08] MEDS: PEPCID TAB 20 MG PO SCH (22:24)
[2019-03-08] MEDS: VALPROIC ACID 500 MG PO SCH (22:24)
[2019-03-08] MEDS: LASIX PO SCH (22:25)
[2019-03-09 05:32] LABS: BASOPHILS % (AUTO) 0.9 % (0.2-1.0); EOSINOPHILS # (AUTO) 0.1 x10^3/uL (0.0-0.2); HEMATOCRIT 32.4 % (36.0-47.0); LYMPHOCYTES # (AUTO) 1.9 X10^3/uL (1.3-2.9); LYMPHOCYTES % (AUTO) 40.7 % (21.0-51.0); MEAN CORPUSCULAR HEMOGLOBIN 31.7 pg (27.0-34.0); MEAN CORPUSCULAR HGB CONC 34.1 g/dL (33.0-35.0); MEAN CORPUSCULAR VOLUME 93.1 fL (80.0-100.0); MEAN PLATELET VOLUME 7.2 fL (7.4-11.0); MONOCYTES # (AUTO) 0.6 x10^3/uL (0.3-0.8); MONOCYTES % (AUTO) 13.6 % (0.0-13.0); NEUTROPHILS # (AUTO) 1.9 x10^3/uL (2.2-4.8); NEUTROPHILS % (AUTO) 41.8 % (42.0-75.0); PLATELET COUNT 214 X10^3/uL (150.0-450.0); RED BLOOD COUNT 3.48 X10^6/uL (3.5-5.4); RED CELL DISTRIBUTION WIDTH 14.9 % (11.6-16.5); WHITE BLOOD COUNT 4.6 X10^3/uL (3.6-10.0)
[2019-03-09 05:38] LABS: ALANINE AMINOTRANSFERASE 21 Units/L (12-78); ALBUMIN 2.5 g/dL (3.4-5.0); ALKALINE PHOSPHATASE 69 Units/L (46-116); ASPARTATE AMINO TRANSFERASE 19 Units/L (15-37); BLOOD UREA NITROGEN 9 mg/dL (7-18); CARBON DIOXIDE 27.8 mmol/L (21-32); CHLORIDE 110 mmol/L (98-107); COR CA(FOR HYPOALB) 9.2 mg/dL (8.5-10.1); CREATININE 0.74 mg/dL (0.55-1.02); SODIUM 146 mmol/L (136-145); TOTAL PROTEIN 6.1 g/dL (6.4-8.2); eGFR NON BLACK RACES > 60 (>60)
--- NOTE | 2019-03-09 08:36 | DR.H&P ---
H&P - History & Physical for Day of: H&P Date: 03/08/19 - Chief Complaint Chief Complaint: UTI, AMS - History of Present Illness History of Present Illness: IS A 83 YEAR OLD PATIENT OF OURS WHO IS A RESIDENT OF [facility]. SHE WAS A DIRECT ADMISSION DUE TO UTI, FAILED OUTPATIENT TX AND ALTERED MENTAL STATUS. SHE WAS DIAGNOSED WITH A UTI AND STARTED ON ROCEPHIN ONE WEEK AGO, BUT SYMPTOMS HAVE PERSISTENTLY GOTTEN WORSE. FAMILY REPORTS THAT PATIENT IS MOANING OUT AND CRYING AT THE DETENTION. OUTPATIENT URINE CULTURE REVEALED GROWTH OF STREP AGALACTIAE-GROUP B. ON ARRIVAL TO THE HOSPITAL, VITALS WERE 99.5-99-36-94%-103/56. LABS WERE OBTAINED. SHE IS HEMODYNAMICALLY STABLE ON ADMISSION. BLOOD CULTURES AND REPEAT URINE CULTURE WAS OBTAINED. A CHEST XRAY WAS OBTAINED AND REVEALED: NO ACUTE CARDIOPULMONARY DISEASE. SHE WAS STARTED ON NORMAL SALINE AT 50ML/HR, INVANZ 1G IV DAILY, AND HOME MEDICATIONS WERE RESUMED. WE PLAN TO FOLLOW UP WITH AM LABS AND CONTINUE TO MONITOR. - Past Medical History Past Medical History: Coronary Artery Disease, Hypertension, Dyslipidemia, Alzheimers, Dementia, Depression, Anxiety, Anemia, GERD, CHF Additional Medical History: Cataracts, Atrial fibrillation, Alzheimers diease, Atrial Fibrillation, Sleep Apnea, Previous blood transfusion - Past Surgical History Surgical History: CABG/Valve Surgery, Hysterectomy, Joint Replacement, Ortho Surgery Additional Surgical History: Pacemaker - Family History Family Medical History: Diabetes Mellitus, Cancer, Hypertension - Social History Does any household member use tobacco: No Alcohol Use: None Drug Use: None Prescription drug monitoring program results: PDMP was not reviewed - Medications Home Medications: ciprofloxacin [From Cipro] Allergy (Verified 03/01/19 16:52) clonazepam Allergy (Verified 03/01/19 16:52) digoxin Allergy (Verified 03/01/19 16:52) donepezil [From Aricept] Allergy (Verified 03/01/19 16:52) gabapentin Allergy (Verified 03/01/19 16:52) methotrexate Allergy (Verified 03/01/19 16:52) methylprednisolone Allergy (Verified 03/01/19 16:52) metoclopramide [From Reglan] Allergy (Verified 03/01/19 16:52) morphine Allergy (Verified 03/01/19 16:52) oxycodone Allergy (Verified 03/01/19 16:52) Sulfa (Sulfonamide Antibiotics) [SULFA] Allergy (Verified 03/01/19 16:52) CONTINUE taking the following medications ceftriaxone 1 g IV DAILY 03/08/19 [History] famotidine [Pepcid AC] 10 mg PO BID 03/08/19 [History] fentanyl 25 mcg TRANSDERMAL Q72H 03/08/19 [History] - Review of Systems Constitutional: Weakness Eyes: No Symptoms Reported ENT: No Symptoms Reported Respiratory: No Symptoms Reported Cardiovascular: No Symptoms Reported Gastrointestinal: Abdominal Pain Genitourinary: No Symptoms Reported Musculoskeletal: No Symptoms Reported Skin: No Symptoms Reported Neurological: See HPI, Weakness, Confusion - Physical Exam Vital Signs: Temperature 97.5 F Pulse Rate [Left Brachial] 90 Respiratory Rate 18 Blood Pressure [Left Arm] 93/50 O2 Sat by Pulse Oximetry 96 Oriented: Not Oriented Eyes: Normal Ear: Normal Nose: Normal Throat: Normal Respiratory: Diminished Throughout Cardiovascular: Normal : Normal Auscultation: Bowel Sounds: Normal Palpation: Normal Tenderness: Suprapubic, Mild. negative: Rebound, Guarding, Rigidity Skin: Normal Musculoskeletal: Normal Psychiatric: Normal Mood Description: Anxious Affect: Anxious Speech Pattern: Inappropriate - Assessment/Plan (1) UTI (urinary tract infection) Qualifiers: Urinary tract infection type: acute cystitis Hematuria presence: without hematuria Qualified Code(s): N30.00 - Acute cystitis without hematuria Status: Acute Plan: INVANZ IG IV DAILY, NORMAL SALINE AT 50ML/HR, CONTINUE TO MONITOR (2) Altered mental status Qualifiers: Altered mental status type: transient alteration of awareness Status: Acute Plan: CONTINUE TO MONITOR - Allergies Allergies/Adverse Reactions: Allergies Allergy/AdvReac Type Severity Reaction Status Date / Time ciprofloxacin [From Cipro] Allergy Verified 03/01/19 16:52 clonazepam Allergy Verified 03/01/19 16:52 digoxin Allergy Verified 03/01/19 16:52 donepezil [From Aricept] Allergy Verified 03/01/19 16:52 gabapentin Allergy Verified 03/01/19 16:52 methotrexate Allergy Verified 03/01/19 16:52 methylprednisolone Allergy Verified 03/01/19 16:52 metoclopramide [From Reglan] Allergy Verified 03/01/19 16:52 morphine Allergy Verified 03/01/19 16:52 oxycodone Allergy Verified 03/01/19 16:52 Sulfa (Sulfonamide Allergy Verified 03/01/19 16:52 Antibiotics) [SULFA]
[2019-03-09] MEDS ORDERED: FERROUS FUMARATE 324 MG PO SCH (09:00)
[2019-03-09] MEDS: INVANZ INJ 1 GM VIAL 1 GM in NS 100 ML IV + SPIKE MINIBAG* 100 ML IV SCH (09:59)
[2019-03-09] MEDS: COLACE CAP 100 MG PO SCH ×3 (10:01→21:18)
[2019-03-09] MEDS: TAB-A-VITE PO SCH ×2 (10:01→10:38)
[2019-03-09] MEDS: ZINC SULFATE PO SCH ×2 (10:02→21:18)
[2019-03-09] MEDS: OSCAL+D or CALTRATE+D PO SCH ×3 (10:02→21:18)
[2019-03-09] MEDS: RisperDAL TAB 1 MG PO SCH ×3 (10:02→21:15)
[2019-03-09] MEDS: VALPROIC ACID 500 MG PO SCH ×2 (10:02→21:35)
[2019-03-09] MEDS: LASIX PO SCH ×2 (10:02→10:41)
[2019-03-09] MEDS: PEPCID TAB 20 MG PO SCH ×3 (10:02→21:16)
[2019-03-09] MEDS: VITAMIN C PO SCH ×2 (10:02→21:17)
[2019-03-09] MEDS: ELIQUIS PO SCH ×4 (10:03→21:16)
[2019-03-09] MEDS: K-DUR TAB 20 MEQ PO SCH ×2 (10:03→10:41)
[2019-03-09] MEDS: FERROUS GLUCONATE PO SCH ×2 (10:03→10:40)
[2019-03-09] MEDS: PROCALAMINE 3 % 1,000 ML IV SCH (10:41)
[2019-03-09] MEDS: NS 1000 ML 1,000 ML IV SCH (10:41)
[2019-03-09] MEDS: MAGNESIUM SULFATE 1 GRAM/100 mL PREMIX 1 GM/100 ML BAG IV PRN ×2 (14:15→15:26)
[2019-03-09] MEDS ORDERED: LEXAPRO ONE (20:04)
[2019-03-09] MEDS: LEXAPRO PO SCH (21:15)
[2019-03-09] MEDS: DESYREL PO SCH (21:17)
[2019-03-09] MEDS: LASIX IVP SCH (21:18)
[2019-03-10 06:53] LABS: BASOPHILS % (AUTO) 0.7 % (0.2-1.0); EOSINOPHILS # (AUTO) 0.1 x10^3/uL (0.0-0.2); EOSINOPHILS % (AUTO) 2.6 % (0.9-2.9); HEMATOCRIT 30.9 % (36.0-47.0); HEMOGLOBIN 10.5 g/dL (12.0-16.0); LYMPHOCYTES # (AUTO) 1.6 X10^3/uL (1.3-2.9); LYMPHOCYTES % (AUTO) 33.5 % (21.0-51.0); MEAN CORPUSCULAR HEMOGLOBIN 31.8 pg (27.0-34.0); MEAN CORPUSCULAR HGB CONC 34.1 g/dL (33.0-35.0); MEAN CORPUSCULAR VOLUME 93.2 fL (80.0-100.0); MEAN PLATELET VOLUME 7.6 fL (7.4-11.0); MONOCYTES # (AUTO) 0.6 x10^3/uL (0.3-0.8); MONOCYTES % (AUTO) 12.7 % (0.0-13.0); NEUTROPHILS # (AUTO) 2.4 x10^3/uL (2.2-4.8); NEUTROPHILS % (AUTO) 50.5 % (42.0-75.0); PLATELET COUNT 218 X10^3/uL (150.0-450.0); RED BLOOD COUNT 3.31 X10^6/uL (3.5-5.4); RED CELL DISTRIBUTION WIDTH 14.6 % (11.6-16.5); WHITE BLOOD COUNT 4.7 X10^3/uL (3.6-10.0)
[2019-03-10 07:16] LABS: ALANINE AMINOTRANSFERASE 19 Units/L (12-78); ALBUMIN 2.4 g/dL (3.4-5.0); ALKALINE PHOSPHATASE 63 Units/L (46-116); ASPARTATE AMINO TRANSFERASE 17 Units/L (15-37); BLOOD UREA NITROGEN 9 mg/dL (7-18); CALCIUM 7.8 mg/dL (8.5-10.1); CARBON DIOXIDE 25.2 mmol/L (21-32); CHLORIDE 109 mmol/L (98-107); COR CA(FOR HYPOALB) 9.1 mg/dL (8.5-10.1); CREATININE 0.57 mg/dL (0.55-1.02); MAGNESIUM 2.2 mg/dL (1.7-2.9); SODIUM 144 mmol/L (136-145); TOTAL PROTEIN 5.8 g/dL (6.4-8.2); eGFR NON BLACK RACES > 60 (>60)
[2019-03-10] MEDS: INVANZ INJ 1 GM VIAL 1 GM in NS 100 ML IV + SPIKE MINIBAG* 100 ML IV SCH (10:00)
[2019-03-10] MEDS: NS 1000 ML 1,000 ML IV SCH ×2 (10:00)
[2019-03-10] MEDS: TAB-A-VITE PO SCH (10:03)
[2019-03-10] MEDS: OSCAL+D or CALTRATE+D PO SCH ×2 (10:04→21:31)
[2019-03-10] MEDS: FERROUS GLUCONATE PO SCH (10:04)
[2019-03-10] MEDS: ZINC SULFATE PO SCH ×2 (10:04→21:29)
[2019-03-10] MEDS: ELIQUIS PO SCH ×2 (10:04→21:31)
[2019-03-10] MEDS: PEPCID TAB 20 MG PO SCH ×2 (10:05→21:28)
[2019-03-10] MEDS: COLACE CAP 100 MG PO SCH ×2 (10:06→21:31)
[2019-03-10] MEDS: VITAMIN C PO SCH ×2 (10:06→21:30)
[2019-03-10] MEDS: K-DUR TAB 20 MEQ PO SCH (10:07)
[2019-03-10] MEDS: RisperDAL TAB 1 MG PO SCH ×2 (10:07→21:31)
[2019-03-10] MEDS: LASIX IVP SCH ×2 (10:08→21:31)
[2019-03-10] MEDS: VALPROIC ACID 500 MG PO SCH ×2 (11:44→21:32)
[2019-03-10] MEDS ORDERED: K-RIDER 10 MEQ/NS 100 ML 10 MEQ/100 ML BAG IV PRN (13:23)
[2019-03-10] MEDS ORDERED: K-DUR TAB 20 MEQ PO PRN ×2 (13:23→13:33)
[2019-03-10] MEDS ORDERED: POTASSIUM CHL 40 MEQ/NS 0.45% 500 ML IV PRN ×2 (13:23→13:33)
[2019-03-10] MEDS ORDERED: KLOR-CON PO PRN ×2 (13:23→13:33)
[2019-03-10] MEDS ORDERED: POTASSIUM CHLORIDE LIQ 20 MEQ UDC PO PRN ×2 (13:23→13:33)
[2019-03-10] MEDS ORDERED: MICRO K EXTEN CAP 10 MEQ PO PRN ×2 (13:23→13:33)
[2019-03-10] MEDS ORDERED: POTASSIUM CHL 60 MEQ/NS 0.45% 500 ML IV PRN ×2 (13:23→13:33)
[2019-03-10] MEDS: ALBUMIN HUMAN 25%- 100 ML 100 ML IV SCH (13:42)
[2019-03-10] MEDS: PROCALAMINE 3 % 1,000 ML IV SCH (15:51)
[2019-03-10] MEDS ORDERED: ATIVAN TAB 0.5 MG PO PRN (16:23)
[2019-03-10] MEDS ORDERED: LEXAPRO ONE (20:15)
[2019-03-10] MEDS: LEXAPRO PO SCH (21:29)
[2019-03-10] MEDS: DESYREL PO SCH (21:30)
[2019-03-11] MEDS: NS 1000 ML 1,000 ML IV SCH ×3 (04:55→13:26)
[2019-03-11 06:06] LABS: BASOPHILS % (AUTO) 0.9 % (0.2-1.0); EOSINOPHILS # (AUTO) 0.1 x10^3/uL (0.0-0.2); EOSINOPHILS % (AUTO) 2.2 % (0.9-2.9); HEMATOCRIT 33.6 % (36.0-47.0); HEMOGLOBIN 11.4 g/dL (12.0-16.0); LYMPHOCYTES # (AUTO) 1.6 X10^3/uL (1.3-2.9); LYMPHOCYTES % (AUTO) 38.4 % (21.0-51.0); MEAN CORPUSCULAR HEMOGLOBIN 31.3 pg (27.0-34.0); MEAN CORPUSCULAR HGB CONC 33.9 g/dL (33.0-35.0); MEAN CORPUSCULAR VOLUME 92.2 fL (80.0-100.0); MEAN PLATELET VOLUME 7.5 fL (7.4-11.0); MONOCYTES # (AUTO) 0.5 x10^3/uL (0.3-0.8); MONOCYTES % (AUTO) 12.6 % (0.0-13.0); NEUTROPHILS % (AUTO) 45.9 % (42.0-75.0); PLATELET COUNT 243 X10^3/uL (150.0-450.0); RED BLOOD COUNT 3.64 X10^6/uL (3.5-5.4); RED CELL DISTRIBUTION WIDTH 14.5 % (11.6-16.5); WHITE BLOOD COUNT 4.3 X10^3/uL (3.6-10.0)
[2019-03-11 06:10] LABS: ALANINE AMINOTRANSFERASE 17 Units/L (12-78); ALBUMIN 3.1 g/dL (3.4-5.0); ALKALINE PHOSPHATASE 64 Units/L (46-116); ASPARTATE AMINO TRANSFERASE 17 Units/L (15-37); BLOOD UREA NITROGEN 8 mg/dL (7-18); CALCIUM 8.7 mg/dL (8.5-10.1); CARBON DIOXIDE 26.5 mmol/L (21-32); CHLORIDE 104 mmol/L (98-107); COR CA(FOR HYPOALB) 9.4 mg/dL (8.5-10.1); SODIUM 141 mmol/L (136-145); TOTAL PROTEIN 6.7 g/dL (6.4-8.2); eGFR NON BLACK RACES > 60 (>60)
[2019-03-11] MEDS: K-DUR TAB 20 MEQ PO SCH (08:53)
[2019-03-11] MEDS: OSCAL+D or CALTRATE+D PO SCH ×2 (08:53→21:39)
[2019-03-11] MEDS: FERROUS GLUCONATE PO SCH (08:53)
[2019-03-11] MEDS: PEPCID TAB 20 MG PO SCH ×2 (08:54→21:40)
[2019-03-11] MEDS: COLACE CAP 100 MG PO SCH ×4 (08:54→22:35)
[2019-03-11] MEDS: ELIQUIS PO SCH ×2 (08:55→21:39)
[2019-03-11] MEDS: TAB-A-VITE PO SCH (08:55)
[2019-03-11] MEDS: RisperDAL TAB 1 MG PO SCH ×2 (08:55→21:40)
[2019-03-11] MEDS: LASIX IVP SCH ×2 (08:56→21:41)
[2019-03-11] MEDS: ALBUMIN HUMAN 25%- 100 ML 100 ML IV SCH (08:56)
[2019-03-11] MEDS: INVANZ INJ 1 GM VIAL 1 GM in NS 100 ML IV + SPIKE MINIBAG* 100 ML IV SCH (08:56)
[2019-03-11] MEDS: VITAMIN C PO SCH ×2 (08:57→21:39)
[2019-03-11] MEDS: ZINC SULFATE PO SCH ×2 (08:57→21:39)
[2019-03-11] MEDS: VALPROIC ACID 500 MG PO SCH ×2 (08:57→21:41)
[2019-03-11] MEDS: MAGNESIUM SULFATE 1 GRAM/100 mL PREMIX 1 GM/100 ML BAG IV PRN ×2 (11:04→12:51)
[2019-03-11] MEDS: PROCALAMINE 3 % 1,000 ML IV SCH (17:14)
--- NOTE | 2019-03-11 18:56 | PCM.PROG ---
Progress Note - Progress Note for Day of Date of Exam: 03/10/19 - Subjective Subjective: WAS A DIRECT ADMISSION FOR UTI, FAILED OUTPATIENT TREATMENT AND ALTERED MENTAL STATUS. FAMILY AND STAFF REPORT THAT SHE WAS AGITATED THROUGHOUT THE NIGHT AND HAS CONTINUED WITH AGITATION AT TIMES THIS MORNING. TODAY, SHE IS LYING IN BED WITH EYES CLOSED ON MORNING ROUNDS. SHE AWAK ENS TO VERBAL STIMULI, BUT IS DISORIENTED. ON EXAMINATION, HEART IS REGULAR IN RATE AND RHYTHM. BILATERAL LUNGS ARE NOTED WITH DIMINISHED LUNG SOUNDS THROUGHOUT. ABDOMEN IS ROUND, SOFT, AND NON-TENDER WITH NORMAL BOWEL SOUNDS NOTED IN ALL QUADRANTS. HER VITALS THIS MORNING ARE: 97.8-80-18-99%-110/59. LABS WERE OBTAINED. ABNORMAL LAB VALUES INCLUDE THE FOLLOWING: RBC 3.31, HGB 10.5, HCT 30.9, POTASSIUM 3.1, CHLORIDE 109, CALCIUM 7.8, TOTAL BILI 0.10, TOTAL PROTEIN 5.8, ALBUMIN 2.4. BLOOD AND URINE CULTURES ARE PENDING. SHE IS CURRENTLY RECEIVING NORMAL SALINE AT 50ML/HR, IV PROCAL, INVANZ 1G IV DAILY, AND HOME MEDICATIONS WERE RESUMED. TODAY, WE WILL START IV ALBUMIN, ATIVAN 0.5MG PO BID, THE POTASSIUM AND MAGNESIUM PROTOCOLS. OTHERWISE, WE WILL CONTINUE WITH CURRENT PLAN OF CARE TODAY. WE PLAN TO FOLLOW UP WITH AM LABS AND CONTINUE TO MONITOR. - Past Medical Family Social History Past Med/Fam/Surg Hx: No changes since H&P Allergies: Allergies ciprofloxacin [From Cipro] Allergy (Verified 03/01/19 16:52) clonazepam Allergy (Verified 03/01/19 16:52) digoxin Allergy (Verified 03/01/19 16:52) donepezil [From Aricept] Allergy (Verified 03/01/19 16:52) gabapentin Allergy (Verified 03/01/19 16:52) methotrexate Allergy (Verified 03/01/19 16:52) methylprednisolone Allergy (Verified 03/01/19 16:52) metoclopramide [From Reglan] Allergy (Verified 03/01/19 16:52) morphine Allergy (Verified 03/01/19 16:52) oxycodone Allergy (Verified 03/01/19 16:52) Sulfa (Sulfonamide Antibiotics) [SULFA] Allergy (Verified 03/01/19 16:52) - Review of Systems ROS: No change since H&P - Vital Signs and I&O's Vital Signs: Temperature 98.4 F Pulse Rate [Left Brachial] 95 Respiratory Rate 18 Blood Pressure [Right Arm] 108/54 Blood Pressure [Left Arm] 93/50 O2 Sat by Pulse Oximetry 96 Intake and Output: Intake & Output 03/09/19 03/10/19 03/11/19 03/12/19 11:59 11:59 11:59 11:59 Intake Total 883 / 883 2015 / 0 880 / 880 Output Total 0 / 0 Balance 883 / 883 2015 880 / 880 - Physical Exam Oriented: Not Oriented Eyes: Normal Ear: Normal Nose: Normal Throat: Normal Respiratory: Generalized, Diminished Cardiovascular: Normal : Normal Auscultation: Bowel Sounds: Normal Palpation: Normal Tenderness: Suprapubic, Mild. negative: Rebound, Guarding, Rigidity Skin: Normal Musculoskeletal: Normal Psychiatric: Normal Mood Description: Anxious Affect: Anxious Speech Pattern: Unclear - Laboratory and Diagnostics Result Diagrams: 03/11/19 04:55 03/11/19 16:30 Labs: 03/08/19 14:41 Blood Blood Culture - Preliminary 03/08/19 14:32 Blood Blood Culture - Preliminary 03/08/19 15:15 Urine,Catheterized Urine Culture - Final Laboratory WBC 4.3 X10^3/uL (3.6-10.0) 03/11/19 04:55 RBC 3.64 X10^6/uL (3.5-5.4) 03/11/19 04:55 Hgb 11.4 g/dL (12.0-16.0) L 03/11/19 04:55 Hct 33.6 % (36.0-47.0) L 03/11/19 04:55 MCV 92.2 fL (80.0-100.0) 03/11/19 04:55 MCH 31.3 pg (27.0-34.0) 03/11/19 04:55 MCHC 33.9 g/dL (33.0-35.0) 03/11/19 04:55 RDW 14.5 % (11.6-16.5) 03/11/19 04:55 Plt Count 243 X10^3/uL (150.0-450.0) 03/11/19 04:55 MPV 7.5 fL (7.4-11.0) 03/11/19 04:55 Neut % (Auto) 45.9 % (42.0-75.0) 03/11/19 04:55 Lymph % (Auto) 38.4 % (21.0-51.0) 03/11/19 04:55 [place] % (Auto) 12.6 % (0.0-13.0) 03/11/19 04:55 Eos % (Auto) 2.2 % (0.9-2.9) 03/11/19 04:55 Baso % (Auto) 0.9 % (0.2-1.0) 03/11/19 04:55 Neut # (Auto) 2.0 x10^3/uL (2.2-4.8) L 03/11/19 04:55 Lymph # (Auto) 1.6 X10^3/uL (1.3-2.9) 03/11/19 04:55 [place] # (Auto) 0.5 x10^3/uL (0.3-0.8) 03/11/19 04:55 Eos # (Auto) 0.1 x10^3/uL (0.0-0.2) 03/11/19 04:55 Baso # (Auto) 0.0 X10^3/uL (0.0-0.1) 03/11/19 04:55 Absolute Nucleated RBC 0.1 /100WBC 03/11/19 04:55 PT 13.8 SECONDS (11.8-14.3) 03/08/19 14:32 INR Target Range - 03/08/19 14:32 INR 1.10 (0.8-1.3) 03/08/19 14:32 Sodium 141 mmol/L (136-145) 03/11/19 04:55 Corrected Sodium TNP 03/11/19 04:55 Potassium 3.5 mmol/L (3.5-5.1) 03/11/19 16:30 Chloride 104 mmol/L (98-107) 03/11/19 04:55 Carbon Dioxide 26.5 mmol/L (21-32) 03/11/19 04:55 BUN 8 mg/dL (7-18) 03/11/19 04:55 Creatinine 0.60 mg/dL (0.55-1.02) 03/11/19 04:55 Est GFR (MDRD) Af Amer > 60 (>60) 03/11/19 04:55 Est GFR (MDRD) Non-Af > 60 (>60) 03/11/19 04:55 Glucose 87 mg/dL (65-99) 03/11/19 04:55 Lactic Acid 2.0 mmol/L (0.4-2.0) 03/08/19 14:32 Calcium 8.7 mg/dL (8.5-10.1) 03/11/19 04:55 Corrected Calcium 9.4 mg/dL (8.5-10.1) 03/11/19 04:55 Magnesium 1.8 mg/dL (1.7-2.9) 03/11/19 04:55 Total Bilirubin 0.30 mg/dL (0.2-1.0) 03/11/19 04:55 AST 17 Units/L (15-37) 03/11/19 04:55 ALT 17 Units/L (12-78) 03/11/19 04:55 Alkaline Phosphatase 64 Units/L (46-116) 03/11/19 04:55 Total Protein 6.7 g/dL (6.4-8.2) 03/11/19 04:55 Albumin 3.1 g/dL (3.4-5.0) L 03/11/19 04:55 Globulin 3.6 g/dL (2.5-4.5) 03/11/19 04:55 Albumin/Globulin Ratio 0.9 Ratio (1.1-2.1) L 03/11/19 04:55 Specimen Type Catherized urine 03/08/19 15:15 Urine Color Yellow (YELLOW) 03/08/19 15:15 Urine Appearance Slightly hazy (CLEAR) 03/08/19 15:15 Urine pH 8.0 (5.0 - 8.0) 03/08/19 15:15 Ur Specific [place] 1.020 (1.000-1.030) 03/08/19 15:15 Urine Protein Negative (NEGATIVE) 03/08/19 15:15 Urine Glucose (UA) Negative (NEGATIVE) 03/08/19 15:15 Urine Ketones 1+ (NEGATIVE) 03/08/19 15:15 Urine Occult Blood Negative (NEGATIVE) 03/08/19 15:15 Urine Nitrite Negative (NEGATIVE) 03/08/19 15:15 Urine Bilirubin Negative (NEGATIVE) 03/08/19 15:15 Urine Urobilinogen Normal (NORMAL) 03/08/19 15:15 Ur Leukocyte Esterase 1+ (NEGATIVE) 03/08/19 15:15 Urine RBC None seen /HPF (0-3) 03/08/19 15:15 Urine WBC 0-2 /HPF (0-5) 03/08/19 15:15 Ur Squamous Epith Cells Few /HPF (NEGATIVE) 03/08/19 15:15 Urine Bacteria Negative /HPF (NEGATIVE) 03/08/19 15:15 Ur Culture Indicated? Yes/culture set up 03/08/19 15:15 - Plan (1) UTI (urinary tract infection) Status: Acute Qualifiers: Urinary tract infection type: acute cystitis Hematuria presence: without hematuria Qualified Code(s): N30.00 - Acute cystitis without hematuria Plan: INVANZ IG IV DAILY, NORMAL SALINE AT 50ML/HR, CONTINUE TO MONITOR (2) Altered mental status Status: Acute Qualifiers: Altered mental status type: transient alteration of awareness Plan: CONTINUE TO MONITOR (3) Hyperkalemia Status: Acute Plan: REPLACEMENT PER PROTOCOL (4) Hypoproteinemia Status: Acute Plan: PROCAL IV, ALBUMIN IV, CONTINUE TO MONITOR
--- NOTE | 2019-03-11 19:02 | PCM.PROG ---
Progress Note - Progress Note for Day of Date of Exam: 03/11/19 - Subjective Subjective: WAS A DIRECT ADMISSION FOR UTI, FAILED OUTPATIENT TREATMENT AND ALTERED MENTAL STATUS. FAMILY AND STAFF REPORT THAT SHE HAS CONTINUED WITH AGITATION AT NIGHT. TODAY, SHE IS ALERT, LYING IN BED ON MORNING ROUNDS. ON EXAMINATION, HEART IS REGULAR IN RATE AND RHYTHM. BILATERAL LUNGS ARE NOTED WITH DIMINISHED LUNG SOUNDS THROUGHOUT. ABDOMEN IS ROUND, SOFT, AND NON- TENDER WITH NORMAL BOWEL SOUNDS NOTED IN ALL QUADRANTS. HER VITALS THIS MORNING ARE: 97.7-94-20-97%-106/56. LABS WERE OBTAINED. ABNORMAL LAB VALUES INCLUDE THE FOLLOWING: HGB 11.4, HCT 33.6, POTASSIUM 3.2, ALBUMIN 3.1. BLOOD AND URINE CULTURES ARE PENDING. SHE IS CURRENTLY RECEIVING NORMAL SALINE AT 50ML/HR, IV PROCAL, ALBUMIN IV, INVANZ 1G IV DAILY, ATIVAN BID PRN, THE POTASSIUM PROTOCOL, AND HOME MEDICATIONS WERE RESUMED. WE WILL CONTINUE WITH CURRENT PLAN OF CARE TODAY AND START ZYPREXA 2.5MG PO HS. OTHERWISE, WE PLAN TO FOLLOW UP WITH AM LABS AND CONTINUE TO MONITOR. - Past Medical Family Social History Past Med/Fam/Surg Hx: No changes since H&P Allergies: Allergies ciprofloxacin [From Cipro] Allergy (Verified 03/01/19 16:52) clonazepam Allergy (Verified 03/01/19 16:52) digoxin Allergy (Verified 03/01/19 16:52) donepezil [From Aricept] Allergy (Verified 03/01/19 16:52) gabapentin Allergy (Verified 03/01/19 16:52) methotrexate Allergy (Verified 03/01/19 16:52) methylprednisolone Allergy (Verified 03/01/19 16:52) metoclopramide [From Reglan] Allergy (Verified 03/01/19 16:52) morphine Allergy (Verified 03/01/19 16:52) oxycodone Allergy (Verified 03/01/19 16:52) Sulfa (Sulfonamide Antibiotics) [SULFA] Allergy (Verified 03/01/19 16:52) - Review of Systems ROS: No change since H&P - Vital Signs and I&O's Vital Signs: Temperature 98.4 F Pulse Rate [Left Brachial] 95 Respiratory Rate 18 Blood Pressure [Right Arm] 108/54 Blood Pressure [Left Arm] 93/50 O2 Sat by Pulse Oximetry 96 Intake and Output: Intake & Output 03/09/19 03/10/19 03/11/19 03/12/19 11:59 11:59 11:59 11:59 Intake Total 883 / 883 2015 / 2619 880 / 880 Output Total 0 / 0 Balance 883 / 883 2015 / 2619 880 / 880 - Physical Exam Oriented: Not Oriented Eyes: Normal Ear: Normal Nose: Normal Throat: Normal Respiratory: Generalized, Diminished Cardiovascular: Normal : Normal Auscultation: Bowel Sounds: Normal Palpation: Normal Tenderness: Suprapubic, Mild. negative: Rebound, Guarding, Rigidity Skin: Normal Musculoskeletal: Normal Psychiatric: Normal Mood Description: Anxious Affect: Anxious Speech Pattern: Unclear - Laboratory and Diagnostics Result Diagrams: 03/11/19 04:55 03/11/19 16:30 Labs: 03/08/19 14:41 Blood Blood Culture - Preliminary 03/08/19 14:32 Blood Blood Culture - Preliminary 03/08/19 15:15 Urine,Catheterized Urine Culture - Final Laboratory WBC 4.3 X10^3/uL (3.6-10.0) 03/11/19 04:55 RBC 3.64 X10^6/uL (3.5-5.4) 03/11/19 04:55 Hgb 11.4 g/dL (12.0-16.0) L 03/11/19 04:55 Hct 33.6 % (36.0-47.0) L 03/11/19 04:55 MCV 92.2 fL (80.0-100.0) 03/11/19 04:55 MCH 31.3 pg (27.0-34.0) 03/11/19 04:55 MCHC 33.9 g/dL (33.0-35.0) 03/11/19 04:55 RDW 14.5 % (11.6-16.5) 03/11/19 04:55 Plt Count 243 X10^3/uL (150.0-450.0) 03/11/19 04:55 MPV 7.5 fL (7.4-11.0) 03/11/19 04:55 Neut % (Auto) 45.9 % (42.0-75.0) 03/11/19 04:55 Lymph % (Auto) 38.4 % (21.0-51.0) 03/11/19 04:55 [place] % (Auto) 12.6 % (0.0-13.0) 03/11/19 04:55 Eos % (Auto) 2.2 % (0.9-2.9) 03/11/19 04:55 Baso % (Auto) 0.9 % (0.2-1.0) 03/11/19 04:55 Neut # (Auto) 2.0 x10^3/uL (2.2-4.8) L 03/11/19 04:55 Lymph # (Auto) 1.6 X10^3/uL (1.3-2.9) 03/11/19 04:55 [place] # (Auto) 0.5 x10^3/uL (0.3-0.8) 03/11/19 04:55 Eos # (Auto) 0.1 x10^3/uL (0.0-0.2) 03/11/19 04:55 Baso # (Auto) 0.0 X10^3/uL (0.0-0.1) 03/11/19 04:55 Absolute Nucleated RBC 0.1 /100WBC 03/11/19 04:55 PT 13.8 SECONDS (11.8-14.3) 03/08/19 14:32 INR Target Range - 03/08/19 14:32 INR 1.10 (0.8-1.3) 03/08/19 14:32 Sodium 141 mmol/L (136-145) 03/11/19 04:55 Corrected Sodium TNP 03/11/19 04:55 Potassium 3.5 mmol/L (3.5-5.1) 03/11/19 16:30 Chloride 104 mmol/L (98-107) 03/11/19 04:55 Carbon Dioxide 26.5 mmol/L (21-32) 03/11/19 04:55 BUN 8 mg/dL (7-18) 03/11/19 04:55 Creatinine 0.60 mg/dL (0.55-1.02) 03/11/19 04:55 Est GFR (MDRD) Af Amer > 60 (>60) 03/11/19 04:55 Est GFR (MDRD) Non-Af > 60 (>60) 03/11/19 04:55 Glucose 87 mg/dL (65-99) 03/11/19 04:55 Lactic Acid 2.0 mmol/L (0.4-2.0) 03/08/19 14:32 Calcium 8.7 mg/dL (8.5-10.1) 03/11/19 04:55 Corrected Calcium 9.4 mg/dL (8.5-10.1) 03/11/19 04:55 Magnesium 1.8 mg/dL (1.7-2.9) 03/11/19 04:55 Total Bilirubin 0.30 mg/dL (0.2-1.0) 03/11/19 04:55 AST 17 Units/L (15-37) 03/11/19 04:55 ALT 17 Units/L (12-78) 03/11/19 04:55 Alkaline Phosphatase 64 Units/L (46-116) 03/11/19 04:55 Total Protein 6.7 g/dL (6.4-8.2) 03/11/19 04:55 Albumin 3.1 g/dL (3.4-5.0) L 03/11/19 04:55 Globulin 3.6 g/dL (2.5-4.5) 03/11/19 04:55 Albumin/Globulin Ratio 0.9 Ratio (1.1-2.1) L 03/11/19 04:55 Specimen Type Catherized urine 03/08/19 15:15 Urine Color Yellow (YELLOW) 03/08/19 15:15 Urine Appearance Slightly hazy (CLEAR) 03/08/19 15:15 Urine pH 8.0 (5.0 - 8.0) 03/08/19 15:15 Ur Specific [place] 1.020 (1.000-1.030) 03/08/19 15:15 Urine Protein Negative (NEGATIVE) 03/08/19 15:15 Urine Glucose (UA) Negative (NEGATIVE) 03/08/19 15:15 Urine Ketones 1+ (NEGATIVE) 03/08/19 15:15 Urine Occult Blood Negative (NEGATIVE) 03/08/19 15:15 Urine Nitrite Negative (NEGATIVE) 03/08/19 15:15 Urine Bilirubin Negative (NEGATIVE) 03/08/19 15:15 Urine Urobilinogen Normal (NORMAL) 03/08/19 15:15 Ur Leukocyte Esterase 1+ (NEGATIVE) 03/08/19 15:15 Urine RBC None seen /HPF (0-3) 03/08/19 15:15 Urine WBC 0-2 /HPF (0-5) 03/08/19 15:15 Ur Squamous Epith Cells Few /HPF (NEGATIVE) 03/08/19 15:15 Urine Bacteria Negative /HPF (NEGATIVE) 03/08/19 15:15 Ur Culture Indicated? Yes/culture set up 03/08/19 15:15 - Plan (1) UTI (urinary tract infection) Status: Acute Qualifiers: Urinary tract infection type: acute cystitis Hematuria presence: without hematuria Qualified Code(s): N30.00 - Acute cystitis without hematuria Plan: INVANZ IG IV DAILY, NORMAL SALINE AT 50ML/HR, CONTINUE TO MONITOR (2) Altered mental status Status: Acute Qualifiers: Altered mental status type: transient alteration of awareness Plan: ZYPREXA 2.5MG PO HS, ATIVAN 0.5MG PO BID PRN, CONTINUE TO MONITOR (3) Hyperkalemia Status: Acute Plan: REPLACEMENT PER PROTOCOL (4) Hypoproteinemia Status: Acute Plan: PROCAL IV, ALBUMIN IV, CONTINUE TO MONITOR
[2019-03-11] MEDS ORDERED: LEXAPRO ONE (20:30)
[2019-03-11] MEDS: LEXAPRO PO SCH (21:40)
[2019-03-11] MEDS: DESYREL PO SCH (21:40)
[2019-03-12] MEDS: NS 1000 ML 1,000 ML IV SCH ×2 (05:22→17:26)
[2019-03-12 06:20] LABS: ALANINE AMINOTRANSFERASE 16 Units/L (12-78); ALBUMIN 2.7 g/dL (3.4-5.0); ALKALINE PHOSPHATASE 56 Units/L (46-116); ASPARTATE AMINO TRANSFERASE 9 Units/L (15-37); BLOOD UREA NITROGEN 9 mg/dL (7-18); CALCIUM 7.9 mg/dL (8.5-10.1); CARBON DIOXIDE 26.7 mmol/L (21-32); CHLORIDE 108 mmol/L (98-107); COR CA(FOR HYPOALB) 8.9 mg/dL (8.5-10.1); CREATININE 0.76 mg/dL (0.55-1.02); SODIUM 142 mmol/L (136-145); TOTAL PROTEIN 5.8 g/dL (6.4-8.2); eGFR NON BLACK RACES > 60 (>60)
[2019-03-12 06:23] LABS: BASOPHILS % (AUTO) 0.7 % (0.2-1.0); EOSINOPHILS # (AUTO) 0.1 x10^3/uL (0.0-0.2); HEMATOCRIT 29.6 % (36.0-47.0); HEMOGLOBIN 9.9 g/dL (12.0-16.0); LYMPHOCYTES # (AUTO) 1.4 X10^3/uL (1.3-2.9); MEAN CORPUSCULAR HEMOGLOBIN 31.2 pg (27.0-34.0); MEAN CORPUSCULAR HGB CONC 33.6 g/dL (33.0-35.0); MEAN CORPUSCULAR VOLUME 92.7 fL (80.0-100.0); MEAN PLATELET VOLUME 7.2 fL (7.4-11.0); MONOCYTES # (AUTO) 0.5 x10^3/uL (0.3-0.8); MONOCYTES % (AUTO) 12.3 % (0.0-13.0); NEUTROPHILS # (AUTO) 1.8 x10^3/uL (2.2-4.8); PLATELET COUNT 184 X10^3/uL (150.0-450.0); RED BLOOD COUNT 3.19 X10^6/uL (3.5-5.4); RED CELL DISTRIBUTION WIDTH 14.4 % (11.6-16.5); WHITE BLOOD COUNT 3.8 X10^3/uL (3.6-10.0)
[2019-03-12] MEDS: K-DUR TAB 20 MEQ PO SCH (09:00)
[2019-03-12] MEDS: FERROUS GLUCONATE PO SCH (09:00)
[2019-03-12] MEDS: COLACE CAP 100 MG PO SCH ×2 (09:00→22:13)
[2019-03-12] MEDS: ELIQUIS PO SCH ×2 (09:01→22:13)
[2019-03-12] MEDS: VITAMIN C PO SCH ×2 (09:01→22:15)
[2019-03-12] MEDS: PEPCID TAB 20 MG PO SCH ×2 (09:01→22:15)
[2019-03-12] MEDS: INVANZ INJ 1 GM VIAL 1 GM in NS 100 ML IV + SPIKE MINIBAG* 100 ML IV SCH (09:02)
[2019-03-12] MEDS: LASIX IVP SCH ×2 (09:02→22:13)
[2019-03-12] MEDS: OSCAL+D or CALTRATE+D PO SCH ×2 (09:02→22:14)
[2019-03-12] MEDS: ALBUMIN HUMAN 25%- 100 ML 100 ML IV SCH (09:08)
[2019-03-12] MEDS: RisperDAL TAB 1 MG PO SCH (10:27)
[2019-03-12] MEDS: TAB-A-VITE PO SCH (10:27)
[2019-03-12] MEDS: VALPROIC ACID 500 MG PO SCH ×2 (10:27→21:00)
[2019-03-12] MEDS: ZINC SULFATE PO SCH ×2 (10:28→22:15)
[2019-03-12] MEDS ORDERED: STERILE WATER IRRIGATION IR ONE (11:21)
--- NOTE | 2019-03-12 14:10 | CT ---
HISTORYQUESTIONABLE STOOL COMING FROM VAGINA R/O FISTULASTUDYABDOMEN/PELVIS WITH CONCOMPARISONCT pelvis 11/06/2016.TECHNIQUEMultiple axial images of the abdomen and pelvis were obtained from the lung bases to the pubic symphysis both prior to and after the administration of IV contrast. Dose reduction techniques including Automated Exposure Control (AEC) and adjustment of mA and kV were utilized.FINDINGSThere are small bibasilar pleural effusions and associated bibasilar opacities posteriorly. The liver is normal size with fatty replacement throughout. The spleen measures 11 centimeters in length is normal density. The adrenals are normal. The kidneys are normal size and function normally with no hydronephrosis or renal stones. There small hypodensities scattered in both kidneys with the largest seen on the left inferiorly measuring 2.7 cm and measures water density. The smaller lesions are more ill-defined. The ureters normal caliber.There is moderate feces scattered throughout the colon which is most prominent along the rectum with moderate distention of the rectum. There is a rectal tube in place very little contrast in the rectum. The uterus has been removed with no adnexal mass or free fluid and no obvious air or fluid in the vaginal vault. The bladder moderately distended and there is a 2 centimeter diverticulum along the dome of the bladder superior laterally on the right with a 1.5 cm calcification in the area. There mild stranding and edema in the perirectal soft tissues extending superiorly along the presacral region with no focal fluid collection or mass and no obvious mucosal thickening in the bowel. The appendix is not well visualized with no pericecal inflammation. The bones are intact with no aggressive osseous lesion. There is an old healed fracture along the sacrum inferiorly which is unchanged no aggressive osseous lesion is seenIMPRESSIONModerate constipation with a questionable mild fecal impaction in the rectum. There is a rectal tube in place with very little contrast in the rectum which is limiting the exam.Mild perirectal stranding and edema which could represent early proctitis with no significant mucosal thickening and no focal mass or fluid collection.Status post hysterectomy with no obvious rectovaginal fistula identified.Moderate distention of the urinary bladder with a 2 cm diverticulum superolaterally on the right and associated 1.5 cm calcification in the diverticulum. Recommend urological follow-upStatus post post cholecystectomy otherwise, unremarkable biliary treeSmall bibasilar pleural effusions and mild bibasilar atelectasis or infiltrates posteriorly.Multiple hypodense cystic masses in both kidneys, some which are too small to further characterize.Old healed fracture of the lower sacrum which is unchanged.Electronically signed by: RY TURNER (Mar 12, 2019 14:08:42)
[2019-03-12] MEDS ORDERED: DULCOLAX SUPPOSITORY 10 MG RECTAL ONE (16:22)
[2019-03-12] MEDS: MILK OF MAGNESIA PO SCH ×2 (17:26→21:00)
[2019-03-12] MEDS: PROCALAMINE 3 % 1,000 ML IV SCH (17:27)
--- NOTE | 2019-03-12 20:48 | PCM.PROG ---
Progress Note - Progress Note for Day of Date of Exam: 03/12/19 - Subjective Subjective: WAS A DIRECT ADMISSION FOR UTI, FAILED OUTPATIENT TREATMENT AND ALTERED MENTAL STATUS. FAMILY AND STAFF REPORT THAT SHE HAS CONTINUED WITH AGITATION AT NIGHT. STAFF REPORTS THAT THEY BELIEVE THAT PATIENT HAS STOOL COMING FROM VAGINA. TODAY, SHE IS ALERT, LYING IN BED ON MORNING RO UNDS. ON EXAMINATION, HEART IS REGULAR IN RATE AND RHYTHM. BILATERAL LUNGS ARE NOTED WITH DIMINISHED LUNG SOUNDS THROUGHOUT. ABDOMEN IS ROUND, SOFT, AND NON- TENDER WITH NORMAL BOWEL SOUNDS NOTED IN ALL QUADRANTS. HER VITALS THIS MORNING ARE: 96.9-70-20-93%-110/70. LABS WERE OBTAINED. ABNORMAL LAB VALUES INCLUDE THE FOLLOWING: RBC 3.19, HGB 9.9, HCT 29.6, CHLORIDE 108, CALCIUM 7.9, TOTAL BILI 0.10, AST 9, TOTAL PROTEIN 5.8, ALBUMIN 2.7. BLOOD AND URINE CULTURES ARE PENDING. SHE IS CURRENTLY RECEIVING NORMAL SALINE AT 50ML/HR, IV PROCAL, ALBUMIN IV, INVANZ 1G IV DAILY, ATIVAN BID PRN, ZYPREXA 2.5MG PO HS, THE POTASSIUM PROTOCOL, AND HOME MEDICATIONS WERE RESUMED. WE WILL CONTINUE WITH CURRENT PLAN OF CARE TODAY AND OBTAIN AN ABDOMEN/PELVIS CT WITH IV CONTRAST TO RULE OUT FISTULA. OTHERWISE, WE PLAN TO FOLLOW UP WITH AM LABS AND CONTINUE TO MONITOR. - Past Medical Family Social History Past Med/Fam/Surg Hx: No changes since H&P Allergies: Allergies ciprofloxacin [From Cipro] Allergy (Verified 03/01/19 16:52) clonazepam Allergy (Verified 03/01/19 16:52) digoxin Allergy (Verified 03/01/19 16:52) donepezil [From Aricept] Allergy (Verified 03/01/19 16:52) gabapentin Allergy (Verified 03/01/19 16:52) methotrexate Allergy (Verified 03/01/19 16:52) methylprednisolone Allergy (Verified 03/01/19 16:52) metoclopramide [From Reglan] Allergy (Verified 03/01/19 16:52) morphine Allergy (Verified 03/01/19 16:52) oxycodone Allergy (Verified 03/01/19 16:52) Sulfa (Sulfonamide Antibiotics) [SULFA] Allergy (Verified 03/01/19 16:52) - Review of Systems ROS: No change since H&P - Vital Signs and I&O's Vital Signs: Temperature 97.3 F Pulse Rate [Left Brachial] 78 Respiratory Rate 20 Blood Pressure [Right Arm] 116/56 Blood Pressure [Left Arm] 93/50 O2 Sat by Pulse Oximetry 96 Intake and Output: Intake & Output 03/10/19 03/11/19 03/12/19 03/13/19 11:59 11:59 11:59 11:59 Intake Total 2015 262 / 262 1720 / 1720 Balance 2015 / 262 1720 / 1720 - Physical Exam Oriented: Person Eyes: Normal Ear: Normal Nose: Normal Throat: Normal Respiratory: Generalized, Diminished Cardiovascular: Normal : Normal Auscultation: Bowel Sounds: Normal Palpation: Normal Tenderness: Suprapubic, Mild. negative: Rebound, Guarding, Rigidity Skin: Normal Musculoskeletal: Normal Psychiatric: Normal Mood Description: Anxious Affect: Anxious Speech Pattern: Unclear - Laboratory and Diagnostics Result Diagrams: 03/12/19 05:28 03/12/19 05:28 Labs: 03/08/19 14:41 Blood Blood Culture - Preliminary 03/08/19 14:32 Blood Blood Culture - Preliminary 03/08/19 15:15 Urine,Catheterized Urine Culture - Final Laboratory WBC 3.8 X10^3/uL (3.6-10.0) 03/12/19 05:28 RBC 3.19 X10^6/uL (3.5-5.4) L 03/12/19 05:28 Hgb 9.9 g/dL (12.0-16.0) L 03/12/19 05:28 Hct 29.6 % (36.0-47.0) L 03/12/19 05:28 MCV 92.7 fL (80.0-100.0) 03/12/19 05:28 MCH 31.2 pg (27.0-34.0) 03/12/19 05:28 MCHC 33.6 g/dL (33.0-35.0) 03/12/19 05:28 RDW 14.4 % (11.6-16.5) 03/12/19 05:28 Plt Count 184 X10^3/uL (150.0-450.0) 03/12/19 05:28 MPV 7.2 fL (7.4-11.0) L 03/12/19 05:28 Neut % (Auto) 48.0 % (42.0-75.0) 03/12/19 05:28 Lymph % (Auto) 36.0 % (21.0-51.0) 03/12/19 05:28 [place] % (Auto) 12.3 % (0.0-13.0) 03/12/19 05:28 Eos % (Auto) 3.0 % (0.9-2.9) H 03/12/19 05:28 Baso % (Auto) 0.7 % (0.2-1.0) 03/12/19 05:28 Neut # (Auto) 1.8 x10^3/uL (2.2-4.8) L 03/12/19 05:28 Lymph # (Auto) 1.4 X10^3/uL (1.3-2.9) 03/12/19 05:28 [place] # (Auto) 0.5 x10^3/uL (0.3-0.8) 03/12/19 05:28 Eos # (Auto) 0.1 x10^3/uL (0.0-0.2) 03/12/19 05:28 Baso # (Auto) 0.0 X10^3/uL (0.0-0.1) 03/12/19 05:28 Absolute Nucleated RBC 0.0 /100WBC 03/12/19 05:28 PT 13.8 SECONDS (11.8-14.3) 03/08/19 14:32 INR Target Range - 03/08/19 14:32 INR 1.10 (0.8-1.3) 03/08/19 14:32 Sodium 142 mmol/L (136-145) 03/12/19 05:28 Corrected Sodium TNP 03/12/19 05:28 Potassium 3.5 mmol/L (3.5-5.1) 03/12/19 05:28 Chloride 108 mmol/L (98-107) H 03/12/19 05:28 Carbon Dioxide 26.7 mmol/L (21-32) 03/12/19 05:28 BUN 9 mg/dL (7-18) 03/12/19 05:28 Creatinine 0.76 mg/dL (0.55-1.02) 03/12/19 05:28 Est GFR (MDRD) Af Amer > 60 (>60) 03/12/19 05:28 Est GFR (MDRD) Non-Af > 60 (>60) 03/12/19 05:28 Glucose 96 mg/dL (65-99) 03/12/19 05:28 Lactic Acid 2.0 mmol/L (0.4-2.0) 03/08/19 14:32 Calcium 7.9 mg/dL (8.5-10.1) L 03/12/19 05:28 Corrected Calcium 8.9 mg/dL (8.5-10.1) 03/12/19 05:28 Magnesium 2.0 mg/dL (1.7-2.9) 03/12/19 05:28 Total Bilirubin 0.10 mg/dL (0.2-1.0) L 03/12/19 05:28 AST 9 Units/L (15-37) L 03/12/19 05:28 ALT 16 Units/L (12-78) 03/12/19 05:28 Alkaline Phosphatase 56 Units/L (46-116) 03/12/19 05:28 Total Protein 5.8 g/dL (6.4-8.2) L 03/12/19 05:28 Albumin 2.7 g/dL (3.4-5.0) L 03/12/19 05:28 Globulin 3.1 g/dL (2.5-4.5) 03/12/19 05:28 Albumin/Globulin Ratio 0.9 Ratio (1.1-2.1) L 03/12/19 05:28 Specimen Type Catherized urine 03/08/19 15:15 Urine Color Yellow (YELLOW) 03/08/19 15:15 Urine Appearance Slightly hazy (CLEAR) 03/08/19 15:15 Urine pH 8.0 (5.0 - 8.0) 03/08/19 15:15 Ur Specific [place] 1.020 (1.000-1.030) 03/08/19 15:15 Urine Protein Negative (NEGATIVE) 03/08/19 15:15 Urine Glucose (UA) Negative (NEGATIVE) 03/08/19 15:15 Urine Ketones 1+ (NEGATIVE) 03/08/19 15:15 Urine Occult Blood Negative (NEGATIVE) 03/08/19 15:15 Urine Nitrite Negative (NEGATIVE) 03/08/19 15:15 Urine Bilirubin Negative (NEGATIVE) 03/08/19 15:15 Urine Urobilinogen Normal (NORMAL) 03/08/19 15:15 Ur Leukocyte Esterase 1+ (NEGATIVE) 03/08/19 15:15 Urine RBC None seen /HPF (0-3) 03/08/19 15:15 Urine WBC 0-2 /HPF (0-5) 03/08/19 15:15 Ur Squamous Epith Cells Few /HPF (NEGATIVE) 03/08/19 15:15 Urine Bacteria Negative /HPF (NEGATIVE) 03/08/19 15:15 Ur Culture Indicated? Yes/culture set up 03/08/19 15:15 - Plan (1) UTI (urinary tract infection) Status: Acute Qualifiers: Urinary tract infection type: acute cystitis Hematuria presence: without hematuria Qualified Code(s): N30.00 - Acute cystitis without hematuria Plan: INVANZ IG IV DAILY, NORMAL SALINE AT 50ML/HR, CONTINUE TO MONITOR (2) Altered mental status Status: Acute Qualifiers: Altered mental status type: transient alteration of awareness Plan: ZYPREXA 2.5MG PO HS, ATIVAN 0.5MG PO BID PRN, CONTINUE TO MONITOR (3) Hyperkalemia Status: Acute Plan: REPLACEMENT PER PROTOCOL (4) Hypoproteinemia Status: Acute Plan: PROCAL IV, ALBUMIN IV, CONTINUE TO MONITOR
[2019-03-12] MEDS ORDERED: LEXAPRO ONE (21:27)
[2019-03-12] MEDS: DESYREL PO SCH (22:13)
[2019-03-12] MEDS: LEXAPRO PO SCH (22:14)
[2019-03-13] MEDS: NS 1000 ML 1,000 ML IV SCH ×3 (01:58→22:10)
[2019-03-13 06:18] LABS: BASOPHILS % (AUTO) 0.7 % (0.2-1.0); EOSINOPHILS # (AUTO) 0.2 x10^3/uL (0.0-0.2); EOSINOPHILS % (AUTO) 3.3 % (0.9-2.9); HEMATOCRIT 35.4 % (36.0-47.0); HEMOGLOBIN 11.9 g/dL (12.0-16.0); LYMPHOCYTES # (AUTO) 1.2 X10^3/uL (1.3-2.9); LYMPHOCYTES % (AUTO) 26.6 % (21.0-51.0); MEAN CORPUSCULAR HEMOGLOBIN 31.1 pg (27.0-34.0); MEAN CORPUSCULAR HGB CONC 33.6 g/dL (33.0-35.0); MEAN CORPUSCULAR VOLUME 92.6 fL (80.0-100.0); MEAN PLATELET VOLUME 7.4 fL (7.4-11.0); MONOCYTES # (AUTO) 0.4 x10^3/uL (0.3-0.8); MONOCYTES % (AUTO) 9.4 % (0.0-13.0); NEUTROPHILS # (AUTO) 2.8 x10^3/uL (2.2-4.8); PLATELET COUNT 216 X10^3/uL (150.0-450.0); RED BLOOD COUNT 3.82 X10^6/uL (3.5-5.4); RED CELL DISTRIBUTION WIDTH 14.6 % (11.6-16.5); WHITE BLOOD COUNT 4.7 X10^3/uL (3.6-10.0)
[2019-03-13 06:21] LABS: ALANINE AMINOTRANSFERASE 17 Units/L (12-78); ALBUMIN 3.7 g/dL (3.4-5.0); ALKALINE PHOSPHATASE 67 Units/L (46-116); ASPARTATE AMINO TRANSFERASE 11 Units/L (15-37); BLOOD UREA NITROGEN 8 mg/dL (7-18); CALCIUM 8.7 mg/dL (8.5-10.1); CARBON DIOXIDE 30.2 mmol/L (21-32); CHLORIDE 103 mmol/L (98-107); CREATININE 0.55 mg/dL (0.55-1.02); SODIUM 141 mmol/L (136-145); TOTAL PROTEIN 7.3 g/dL (6.4-8.2); eGFR NON BLACK RACES > 60 (>60)
[2019-03-13] MEDS: K-RIDER 10 MEQ/NS 100 ML 10 MEQ/100 ML BAG IV PRN ×3 (06:46→18:12)
[2019-03-13] MEDS: ALBUMIN HUMAN 25%- 100 ML 100 ML IV SCH (09:57)
[2019-03-13] MEDS: LASIX IVP SCH ×2 (09:59→22:10)
[2019-03-13] MEDS: TAB-A-VITE PO SCH (09:59)
[2019-03-13] MEDS: ELIQUIS PO SCH ×2 (09:59→22:11)
[2019-03-13] MEDS: OSCAL+D or CALTRATE+D PO SCH ×2 (10:09→22:08)
[2019-03-13] MEDS: FERROUS GLUCONATE PO SCH (10:10)
[2019-03-13] MEDS: VITAMIN C PO SCH ×2 (10:11→22:08)
[2019-03-13] MEDS: COLACE CAP 100 MG PO SCH ×2 (10:12→22:07)
[2019-03-13] MEDS: INVANZ INJ 1 GM VIAL 1 GM in NS 100 ML IV + SPIKE MINIBAG* 100 ML IV SCH (10:12)
[2019-03-13] MEDS: ZINC SULFATE PO SCH ×2 (10:15→22:09)
[2019-03-13] MEDS: PEPCID TAB 20 MG PO SCH ×2 (10:15→22:11)
[2019-03-13] MEDS: MILK OF MAGNESIA PO SCH ×4 (10:15→22:12)
[2019-03-13] MEDS: VALPROIC ACID 500 MG PO SCH ×2 (12:44→22:09)
[2019-03-13] MEDS: K-DUR TAB 20 MEQ PO SCH (12:44)
[2019-03-13] MEDS: FLAGYL IV PREMIX 500 MG BAG 500 MG/100 ML BAG IV SCH ×3 (12:45→22:13)
--- NOTE | 2019-03-13 12:59 | DR.CONSULT ---
Consult - Consultation for Day of: Date: 03/13/19 - Chief Complaint Chief Complaint: Pateint referred for sttol coming from vagina. Patient with AMS. - History of Present Illness History of Present Illness: Patient is a 83 yo female who was referred for stool coming from vagina. Patient with AMS. Family at bedside. Nursing staff noticed stool in the vagina upon changing patients attends. Patient noted to have LLQ tenderness on palpitation, patient said that hurts on palpitation, WBC 4.7, Hgb 11.9, Hct 35.4, Plt 216, BUN 8, Creatinien 0.55. Abdomen and pelvis CT showed Moderate constipation with a questionable mild fecal impaction in the rectum. There is a rectal tube in place with very little contrast in the rectum which is limiting the exam.Mild perirectal stranding and edema which could represent early proctitis with no significant mucosal thickening and no focal mass or fluid collection. Status post hysterectomy with no obvious rectovaginal fistula identified. Moderate distention of the urinary bladder with a 2 cm diverticulum superolaterally on the right and associated 1.5 cm calcification in the diverticulum. Recommend urological follow-up Status post post cholecystectomy otherwise, unremarkable biliary tree - Past Medical History Past Medical History: Coronary Artery Disease, Hypertension, Dyslipidemia, Alzheimers, Dementia, Depression, Anxiety, Anemia, GERD, CHF Additional Medical History: Cataracts, Atrial fibrillation, Alzheimers diease, Atrial Fibrillation, Sleep Apnea, Previous blood transfusion - Past Surgical History Surgical History: CABG/Valve Surgery, Hysterectomy, Joint Replacement, Ortho Surgery Additional Surgical History: Pacemaker - Family History Family Medical History: Diabetes Mellitus, Cancer, Hypertension - Social History Does any household member use tobacco: No Alcohol Use: None Drug Use: None - Medications Home Medications: ciprofloxacin [From Cipro] Allergy (Verified 03/01/19 16:52) clonazepam Allergy (Verified 03/01/19 16:52) digoxin Allergy (Verified 03/01/19 16:52) donepezil [From Aricept] Allergy (Verified 03/01/19 16:52) gabapentin Allergy (Verified 03/01/19 16:52) methotrexate Allergy (Verified 03/01/19 16:52) methylprednisolone Allergy (Verified 03/01/19 16:52) metoclopramide [From Reglan] Allergy (Verified 03/01/19 16:52) morphine Allergy (Verified 03/01/19 16:52) oxycodone Allergy (Verified 03/01/19 16:52) Sulfa (Sulfonamide Antibiotics) [SULFA] Allergy (Verified 03/01/19 16:52) CONTINUE taking the following medications ceftriaxone 1 g DAILY 03/08/19 [History] famotidine [Pepcid AC] 10 mg PO BID 03/08/19 [History] fentanyl 25 mcg TRANSDERMAL Q72H 03/08/19 [History] New Prescriptions olanzapine [Zyprexa] 2.5 mg PO DAILY@1800 #30 tab 03/12/19 [Rx] - Review of Systems Gastrointestinal: See HPI - Physical Exam Vital Signs: Temperature 97.7 F Pulse Rate [Left Brachial] 85 Respiratory Rate 18 Blood Pressure [Right Arm] 134/80 Blood Pressure [Left Arm] 93/50 O2 Sat by Pulse Oximetry 95 Oriented: Not Oriented Eyes: Normal Ear: Normal Nose: Normal Throat: Normal Respiratory: Clear Throughout Cardiovascular: Normal Auscultation: Bowel Sounds: Normal Palpation: Normal, Other (no distention). negative: Spleen Enlarged, Liver Enlarged, Mass Pulsatile Tenderness: LLQ Skin: Normal Mood Description: Calm - Plan Plan: Assessment. 1. Feces through vagina r/o rectovaginal fistula could be contamination from diaper. 2. Abnormal Ct of abdomen showing inflammatory changes r/o fistula. Plan. 1. Once improved from infection standpoint and tenderness will need colonoscopy. Plan reviewed with Dr. Delcid - Allergies Allergies/Adverse Reactions: Allergies Allergy/AdvReac Type Severity Reaction Status Date / Time ciprofloxacin [From Cipro] Allergy Verified 03/01/19 16:52 clonazepam Allergy Verified 03/01/19 16:52 digoxin Allergy Verified 03/01/19 16:52 donepezil [From Aricept] Allergy Verified 03/01/19 16:52 gabapentin Allergy Verified 03/01/19 16:52 methotrexate Allergy Verified 03/01/19 16:52 methylprednisolone Allergy Verified 03/01/19 16:52 metoclopramide [From Reglan] Allergy Verified 03/01/19 16:52 morphine Allergy Verified 03/01/19 16:52 oxycodone Allergy Verified 03/01/19 16:52 Sulfa (Sulfonamide Allergy Verified 03/01/19 16:52 Antibiotics) [SULFA]
[2019-03-13] MEDS ORDERED: LEXAPRO ONE (20:43)
[2019-03-13] MEDS: PROCALAMINE 3 % 1,000 ML IV SCH (21:41)
--- NOTE | 2019-03-13 22:03 | PCM.PROG ---
Progress Note - Progress Note for Day of Date of Exam: 03/13/19 - Subjective Subjective: WAS A DIRECT ADMISSION FOR UTI, FAILED OUTPATIENT TREATMENT AND ALTERED MENTAL STATUS. SHE WAS FOUND WITH STOOL COMING FROM VAGINA YESTERDAY AND AGAIN THIS MORNING. TODAY, SHE IS ALERT, LYING IN BED ON MORNING ROUNDS. ON EXAMINATION, HEART IS REGULAR IN RATE AND RHYTHM. BILATERAL LUNGS ARE NOTED WITH DIMINISHED LUNG SOUNDS THROUGHOUT. ABDOMEN IS ROUND, SOFT, AND NOTED WITH LLQ TENDERNESS. NORMAL BOWEL SOUNDS NOTED IN ALL QUADRANTS. HER VITALS THIS MORNING ARE: 97.7-93-18-96%-125/66. LABS WERE OBTAINED. ABNORMAL LAB VALUES INCLUDE THE FOLLOWING: HGB 11.9, HCT 35.4, POTASSIUM 3.0, AST 11. BLOOD AND URINE CULTURES ARE PENDING. AN ABDOMEN/PELVIS CT WAS OBTAINED YESTERDAY AND R EVEALED: Moderate constipation with a questionable mild fecal impaction in the rectum. There is a rectal tube in place with very little contrast in the rectum which is limiting the exam.Mild perirectal stranding and edema which could represent early proctitis with no significant mucosal thickening and no focal mass or fluid collection. Status post hysterectomy with no obvious rectovaginal fistula identified. Moderate distention of the urinary bladder with a 2 cm diverticulum superolaterally on the right and associated 1.5 cm calcification in the diverticulum. SHE IS CURRENTLY RECEIVING NORMAL SALINE AT 50ML/HR, IV PROCAL, ALBUMIN IV, INVANZ 1G IV DAILY, ATIVAN BID PRN, ZYPREXA 2.5MG PO HS, THE POTASSIUM PROTOCOL, AND HOME MEDICATIONS WERE RESUMED. WE WILL CONTINUE WITH CURRENT PLAN OF CARE TODAY AND ADD FLAGYL 500MG IV Q6H. WE CONSULTED WITH THIS MORNING. HE RECOMMENDS A COLONOSCOPY WHEN PATIENT IS CLEARED FROM AN INFECTIOUS STANDPOINT. WE ALSO CONSULTED WITH . HE WILL SEE PATIENT TODAY AND WE WILL FURTHER DISCUSS A PLAN OF CARE. OTHERWISE, WE PLAN TO FOLLOW UP WITH AM LABS AND CONTINUE TO MONITOR. - Past Medical Family Social History Past Med/Fam/Surg Hx: No changes since H&P Allergies: Allergies ciprofloxacin [From Cipro] Allergy (Verified 03/01/19 16:52) clonazepam Allergy (Verified 03/01/19 16:52) digoxin Allergy (Verified 03/01/19 16:52) donepezil [From Aricept] Allergy (Verified 03/01/19 16:52) gabapentin Allergy (Verified 03/01/19 16:52) methotrexate Allergy (Verified 03/01/19 16:52) methylprednisolone Allergy (Verified 03/01/19 16:52) metoclopramide [From Reglan] Allergy (Verified 03/01/19 16:52) morphine Allergy (Verified 03/01/19 16:52) oxycodone Allergy (Verified 03/01/19 16:52) Sulfa (Sulfonamide Antibiotics) [SULFA] Allergy (Verified 03/01/19 16:52) - Review of Systems ROS: No change since H&P - Vital Signs and I&O's Vital Signs: Temperature 98.0 F Pulse Rate [Left Brachial] 73 Respiratory Rate 18 Blood Pressure [Right Arm] 94/55 Blood Pressure [Left Arm] 93/50 O2 Sat by Pulse Oximetry 94 Intake and Output: Intake & Output 03/11/19 03/12/19 03/13/19 03/14/19 11:59 11:59 11:59 11:59 Intake Total 2620 / 2620 1720 / 1720 180 / 180 0 / 0 Balance 2620 / 2620 1720 / 1720 180 / 180 0 / 0 - Physical Exam Oriented: Not Oriented Eyes: Normal Ear: Normal Nose: Normal Throat: Normal Respiratory: Generalized, Diminished Cardiovascular: Normal : Normal Auscultation: Bowel Sounds: Normal Tenderness: LLQ Skin: Normal Musculoskeletal: Normal Psychiatric: Normal Mood Description: Calm Affect: Anxious Speech Pattern: Unclear - Laboratory and Diagnostics Result Diagrams: 03/13/19 04:51 03/13/19 04:51 Labs: 03/08/19 14:41 Blood Blood Culture - Final 03/08/19 14:32 Blood Blood Culture - Final 03/08/19 15:15 Urine,Catheterized Urine Culture - Final Laboratory WBC 4.7 X10^3/uL (3.6-10.0) 03/13/19 04:51 RBC 3.82 X10^6/uL (3.5-5.4) 03/13/19 04:51 Hgb 11.9 g/dL (12.0-16.0) L D 03/13/19 04:51 Hct 35.4 % (36.0-47.0) L 03/13/19 04:51 MCV 92.6 fL (80.0-100.0) 03/13/19 04:51 MCH 31.1 pg (27.0-34.0) 03/13/19 04:51 MCHC 33.6 g/dL (33.0-35.0) 03/13/19 04:51 RDW 14.6 % (11.6-16.5) 03/13/19 04:51 Plt Count 216 X10^3/uL (150.0-450.0) 03/13/19 04:51 MPV 7.4 fL (7.4-11.0) 03/13/19 04:51 Neut % (Auto) 60.0 % (42.0-75.0) 03/13/19 04:51 Lymph % (Auto) 26.6 % (21.0-51.0) 03/13/19 04:51 [place] % (Auto) 9.4 % (0.0-13.0) 03/13/19 04:51 Eos % (Auto) 3.3 % (0.9-2.9) H 03/13/19 04:51 Baso % (Auto) 0.7 % (0.2-1.0) 03/13/19 04:51 Neut # (Auto) 2.8 x10^3/uL (2.2-4.8) 03/13/19 04:51 Lymph # (Auto) 1.2 X10^3/uL (1.3-2.9) L 03/13/19 04:51 [place] # (Auto) 0.4 x10^3/uL (0.3-0.8) 03/13/19 04:51 Eos # (Auto) 0.2 x10^3/uL (0.0-0.2) 03/13/19 04:51 Baso # (Auto) 0.0 X10^3/uL (0.0-0.1) 03/13/19 04:51 Absolute Nucleated RBC 0.0 /100WBC 03/13/19 04:51 PT 13.8 SECONDS (11.8-14.3) 03/08/19 14:32 INR Target Range - 03/08/19 14:32 INR 1.10 (0.8-1.3) 03/08/19 14:32 Sodium 141 mmol/L (136-145) 03/13/19 04:51 Corrected Sodium TNP 03/13/19 04:51 Potassium 3.0 mmol/L (3.5-5.1) L* 03/13/19 04:51 Chloride 103 mmol/L (98-107) 03/13/19 04:51 Carbon Dioxide 30.2 mmol/L (21-32) 03/13/19 04:51 BUN 8 mg/dL (7-18) 03/13/19 04:51 Creatinine 0.55 mg/dL (0.55-1.02) 03/13/19 04:51 Est GFR (MDRD) Af Amer > 60 (>60) 03/13/19 04:51 Est GFR (MDRD) Non-Af > 60 (>60) 03/13/19 04:51 Glucose 88 mg/dL (65-99) 03/13/19 04:51 POC Glucose (mg/dL) 82 mg/dL (65-99) 03/12/19 09:16 Lactic Acid 2.0 mmol/L (0.4-2.0) 03/08/19 14:32 Calcium 8.7 mg/dL (8.5-10.1) 03/13/19 04:51 Corrected Calcium TNP 03/13/19 04:51 Magnesium 2.1 mg/dL (1.7-2.9) 03/13/19 04:51 Total Bilirubin 0.30 mg/dL (0.2-1.0) 03/13/19 04:51 AST 11 Units/L (15-37) L 03/13/19 04:51 ALT 17 Units/L (12-78) 03/13/19 04:51 Alkaline Phosphatase 67 Units/L (46-116) 03/13/19 04:51 Total Protein 7.3 g/dL (6.4-8.2) 03/13/19 04:51 Albumin 3.7 g/dL (3.4-5.0) 03/13/19 04:51 Globulin 3.6 g/dL (2.5-4.5) 03/13/19 04:51 Albumin/Globulin Ratio 1.0 Ratio (1.1-2.1) L 03/13/19 04:51 Specimen Type Catherized urine 03/08/19 15:15 Urine Color Yellow (YELLOW) 03/08/19 15:15 Urine Appearance Slightly hazy (CLEAR) 03/08/19 15:15 Urine pH 8.0 (5.0 - 8.0) 03/08/19 15:15 Ur Specific [place] 1.020 (1.000-1.030) 03/08/19 15:15 Urine Protein Negative (NEGATIVE) 03/08/19 15:15 Urine Glucose (UA) Negative (NEGATIVE) 03/08/19 15:15 Urine Ketones 1+ (NEGATIVE) 03/08/19 15:15 Urine Occult Blood Negative (NEGATIVE) 03/08/19 15:15 Urine Nitrite Negative (NEGATIVE) 03/08/19 15:15 Urine Bilirubin Negative (NEGATIVE) 03/08/19 15:15 Urine Urobilinogen Normal (NORMAL) 03/08/19 15:15 Ur Leukocyte Esterase 1+ (NEGATIVE) 03/08/19 15:15 Urine RBC None seen /HPF (0-3) 03/08/19 15:15 Urine WBC 0-2 /HPF (0-5) 03/08/19 15:15 Ur Squamous Epith Cells Few /HPF (NEGATIVE) 03/08/19 15:15 Urine Bacteria Negative /HPF (NEGATIVE) 03/08/19 15:15 Ur Culture Indicated? Yes/culture set up 03/08/19 15:15 - Plan (1) Rectovaginal fistula Status: Suspected Plan: INVANZ IV, FLAGYL IV, CONSULT GI AND GENERAL SURGERY, CONTINUE TO MONITOR (2) UTI (urinary tract infection) Status: Acute Qualifiers: Urinary tract infection type: acute cystitis Hematuria presence: without hematuria Qualified Code(s): N30.00 - Acute cystitis without hematuria Plan: INVANZ IG IV DAILY, NORMAL SALINE AT 50ML/HR, CONTINUE TO MONITOR (3) Altered mental status Status: Acute Qualifiers: Altered mental status type: transient alteration of awareness Qualified Code(s): R40.4 - Transient alteration of awareness Plan: ZYPREXA 2.5MG PO HS, ATIVAN 0.5MG PO BID PRN, CONTINUE TO MONITOR (4) Hyperkalemia Status: Acute Plan: REPLACEMENT PER PROTOCOL (5) Hypoproteinemia Status: Acute Plan: PROCAL IV, ALBUMIN IV, CONTINUE TO MONITOR
[2019-03-13] MEDS: LEXAPRO PO SCH (22:07)
[2019-03-13] MEDS: DESYREL PO SCH (22:07)
[2019-03-14] MEDS: FLAGYL IV PREMIX 500 MG BAG 500 MG/100 ML BAG IV SCH ×2 (04:00→09:44)
[2019-03-14 06:07] LABS: BASOPHILS % (AUTO) 0.9 % (0.2-1.0); EOSINOPHILS # (AUTO) 0.1 x10^3/uL (0.0-0.2); EOSINOPHILS % (AUTO) 3.3 % (0.9-2.9); HEMOGLOBIN 10.3 g/dL (12.0-16.0); LYMPHOCYTES # (AUTO) 1.2 X10^3/uL (1.3-2.9); LYMPHOCYTES % (AUTO) 30.6 % (21.0-51.0); MEAN CORPUSCULAR HEMOGLOBIN 31.5 pg (27.0-34.0); MEAN CORPUSCULAR HGB CONC 34.3 g/dL (33.0-35.0); MEAN CORPUSCULAR VOLUME 91.9 fL (80.0-100.0); MEAN PLATELET VOLUME 7.4 fL (7.4-11.0); MONOCYTES # (AUTO) 0.5 x10^3/uL (0.3-0.8); MONOCYTES % (AUTO) 11.8 % (0.0-13.0); NEUTROPHILS # (AUTO) 2.1 x10^3/uL (2.2-4.8); NEUTROPHILS % (AUTO) 53.4 % (42.0-75.0); PLATELET COUNT 188 X10^3/uL (150.0-450.0); RED BLOOD COUNT 3.27 X10^6/uL (3.5-5.4); RED CELL DISTRIBUTION WIDTH 14.3 % (11.6-16.5); WHITE BLOOD COUNT 3.9 X10^3/uL (3.6-10.0)
[2019-03-14 06:55] LABS: ALANINE AMINOTRANSFERASE 14 Units/L (12-78); ALBUMIN 3.5 g/dL (3.4-5.0); ALKALINE PHOSPHATASE 57 Units/L (46-116); ASPARTATE AMINO TRANSFERASE 12 Units/L (15-37); BLOOD UREA NITROGEN 9 mg/dL (7-18); CALCIUM 8.6 mg/dL (8.5-10.1); CARBON DIOXIDE 29.8 mmol/L (21-32); CHLORIDE 104 mmol/L (98-107); CREATININE 0.46 mg/dL (0.55-1.02); SODIUM 141 mmol/L (136-145); TOTAL PROTEIN 6.4 g/dL (6.4-8.2); eGFR NON BLACK RACES > 60 (>60)
[2019-03-14] MEDS: LASIX IVP SCH (09:42)
[2019-03-14] MEDS: K-DUR TAB 20 MEQ PO SCH (09:43)
[2019-03-14] MEDS: OSCAL+D or CALTRATE+D PO SCH (09:43)
[2019-03-14] MEDS: ELIQUIS PO SCH (09:43)
[2019-03-14] MEDS: VITAMIN C PO SCH (09:43)
[2019-03-14] MEDS: PEPCID TAB 20 MG PO SCH (09:43)
[2019-03-14] MEDS: TAB-A-VITE PO SCH (09:44)
[2019-03-14] MEDS: MILK OF MAGNESIA PO SCH (09:44)
[2019-03-14] MEDS: FERROUS GLUCONATE PO SCH (09:44)
[2019-03-14] MEDS: ZINC SULFATE PO SCH (09:44)
[2019-03-14] MEDS: COLACE CAP 100 MG PO SCH (09:44)
[2019-03-14] MEDS: ALBUMIN HUMAN 25%- 100 ML 100 ML IV SCH (09:45)
[2019-03-14] MEDS: INVANZ INJ 1 GM VIAL 1 GM in NS 100 ML IV + SPIKE MINIBAG* 100 ML IV SCH (09:45)
[2019-03-14] MEDS: VALPROIC ACID 500 MG PO SCH (09:46)
[2019-03-14] MEDS: NS 1000 ML 1,000 ML IV SCH (11:33)
--- NOTE | 2019-03-14 12:01 | RAD ---
HISTORYAbdominal painSTUDYKUBCOMPARISONCT abdomen and pelvis dated March 12, 2019FINDINGSThe colon remains packed full of fecal material with formed stool in the left colon and sigmoid colon. There is no small-bowel gassy is distension. There are cholecystectomy clips.IMPRESSIONPersistent findings of constipationElectronically signed by: FAITH LAYNE (Mar 14, 2019 11:59:59)
[2019-03-14 12:19] VITALS: BP 109/59
== END 2019-03-14 13:45 | DRG 690 ==
LOC: MED/SURG 13:56
PROVIDERS: ADMIT Internal Medicine; ATTEND Internal Medicine
CPT/HCPCS: 36415; 71010; 71045; 74000; 74018; 74177; 80053; 81001; 83605; 83735; 84132; 85025; 85610; 87040; 87086; 94760; A4222; B5200; P9047; S0030; J1335; J1940; J2270; J3475; J3480; J7030; J7050

== ENCOUNTER 2019-04-18 17:14 | Inpatient (IN) ==
[2019-04-18] MEDS: D5W 1000 ML IV 1,000 ML IV SCH (20:00)
[2019-04-18 20:08] LABS: BASOPHILS # (AUTO) 0.1 X10^3/uL (0.0-0.1); BASOPHILS % (AUTO) 1.4 % (0.2-1.0); EOSINOPHILS % (AUTO) 0.3 % (0.9-2.9); HEMATOCRIT 43.4 % (36.0-47.0); HEMOGLOBIN 14.3 g/dL (12.0-16.0); LYMPHOCYTES # (AUTO) 3.2 X10^3/uL (1.3-2.9); MEAN CORPUSCULAR HEMOGLOBIN 31.2 pg (27.0-34.0); MEAN CORPUSCULAR VOLUME 94.5 fL (80.0-100.0); MEAN PLATELET VOLUME 9.2 fL (7.4-11.0); MONOCYTES # (AUTO) 0.7 x10^3/uL (0.3-0.8); MONOCYTES % (AUTO) 7.3 % (0.0-13.0); NEUTROPHILS # (AUTO) 5.1 x10^3/uL (2.2-4.8); PLATELET COUNT 295 X10^3/uL (150.0-450.0); RED BLOOD COUNT 4.59 X10^6/uL (3.5-5.4); RED CELL DISTRIBUTION WIDTH 15.1 % (11.6-16.5); WHITE BLOOD COUNT 9.1 X10^3/uL (3.6-10.0)
[2019-04-18 20:08] LABS: BILIRUBIN,URINE NEGATIVE (NEGATIVE); BLOOD/HEMOGLOBIN,URINE NEGATIVE (NEGATIVE); GLUCOSE, URINE NEGATIVE (NEGATIVE); KETONES,URINE 2+ (NEGATIVE); LEUKOCYTE ESTERASE ,URINE 1+ (NEGATIVE); NITRITES,URINE NEGATIVE (NEGATIVE); PROTEIN,URINE 1+ (NEGATIVE); UROBILINOGEN,URINE 1+ (NORMAL)
[2019-04-18 20:17] LABS: APPEARANCE,URINE SLIGHTLY HAZY (CLEAR); BACTERIA,URINE TRACE /HPF (NEGATIVE); COLOR,URINE YELLOW (YELLOW); RBC,URINE NONE SEEN /HPF (0-3); SQUAMOUS EPITHELIAL CELL,UR MODERATE /HPF (NEGATIVE)
[2019-04-18 20:18] LABS: AMORPHOUS SEDIMENT,UR 1+ /HPF (NEGATIVE)
[2019-04-18 20:59] LABS: ALANINE AMINOTRANSFERASE 46 Units/L (12-78); ALBUMIN 3.8 g/dL (3.4-5.0); ALKALINE PHOSPHATASE 74 Units/L (46-116); ASPARTATE AMINO TRANSFERASE 41 Units/L (15-37); BLOOD UREA NITROGEN 52 mg/dL (7-18); CALCIUM 10.1 mg/dL (8.5-10.1); CARBON DIOXIDE 27.4 mmol/L (21-32); COR NA(FOR HYPERGLY) 164 mmol/L (136-145); CREATININE 1.41 mg/dL (0.55-1.02); TOTAL PROTEIN 8.5 g/dL (6.4-8.2); eGFR NON BLACK RACES 38 (>60)
[2019-04-18 21:08] LABS: SODIUM 164 mmol/L (136-145)
[2019-04-18 21:09] LABS: CHLORIDE 124 mmol/L (98-107)
[2019-04-18 22:22] VITALS: BMI 22.0
[2019-04-18] MEDS ORDERED: POTASSIUM CHLORIDE LIQ 20 MEQ UDC PO PRN (22:29)
[2019-04-18] MEDS ORDERED: K-DUR TAB 20 MEQ PO PRN (22:29)
[2019-04-18] MEDS ORDERED: MAGNESIUM SULFATE 1 GRAM/100 mL PREMIX 1 GM/100 ML BAG IV PRN (22:29)
[2019-04-18] MEDS ORDERED: MICRO K EXTEN CAP 10 MEQ PO PRN (22:29)
[2019-04-18] MEDS ORDERED: POTASSIUM CHL 60 MEQ/NS 0.45% 500 ML IV PRN (22:29)
[2019-04-18] MEDS ORDERED: KLOR-CON PO PRN (22:29)
[2019-04-18] MEDS ORDERED: POTASSIUM CHL 40 MEQ/NS 0.45% 500 ML IV PRN (22:29)
[2019-04-18] MEDS ORDERED: PHARMACY CONSULT LTC MEDICATIONS XX SCH (23:00)
[2019-04-18] MEDS: K-RIDER 10 MEQ/NS 100 ML 10 MEQ/100 ML BAG IV PRN (23:47)
[2019-04-19] MEDS: K-RIDER 10 MEQ/NS 100 ML 10 MEQ/100 ML BAG IV PRN (01:25)
[2019-04-19] MEDS ORDERED: LOPRESSOR INJ 5 MG AMP IVP ONE (02:14)
[2019-04-19] MEDS ORDERED: LOPRESSOR INJ 5 MG AMP ONE (02:16)
[2019-04-19 05:29] LABS: BASOPHILS # (AUTO) 0.1 X10^3/uL (0.0-0.1); BASOPHILS % (AUTO) 1.4 % (0.2-1.0); EOSINOPHILS % (AUTO) 0.3 % (0.9-2.9); HEMATOCRIT 40.7 % (36.0-47.0); HEMOGLOBIN 13.4 g/dL (12.0-16.0); LYMPHOCYTES # (AUTO) 2.6 X10^3/uL (1.3-2.9); LYMPHOCYTES % (AUTO) 34.8 % (21.0-51.0); MEAN CORPUSCULAR HEMOGLOBIN 31.5 pg (27.0-34.0); MEAN CORPUSCULAR VOLUME 95.4 fL (80.0-100.0); MONOCYTES # (AUTO) 0.8 x10^3/uL (0.3-0.8); MONOCYTES % (AUTO) 10.8 % (0.0-13.0); NEUTROPHILS % (AUTO) 52.7 % (42.0-75.0); PLATELET COUNT 263 X10^3/uL (150.0-450.0); RED BLOOD COUNT 4.26 X10^6/uL (3.5-5.4); RED CELL DISTRIBUTION WIDTH 15.2 % (11.6-16.5); WHITE BLOOD COUNT 7.5 X10^3/uL (3.6-10.0)
[2019-04-19 05:40] LABS: ALBUMIN 3.3 g/dL (3.4-5.0); CALCIUM 9.4 mg/dL (8.5-10.1); CARBON DIOXIDE 30.5 mmol/L (21-32); CREATININE 1.42 mg/dL (0.55-1.02); TOTAL PROTEIN 7.6 g/dL (6.4-8.2)
[2019-04-19] MEDS ORDERED: MILK OF MAGNESIA PO PRN (08:41)
[2019-04-19] MEDS ORDERED: PEPCID TAB 20 MG PO SCH (09:00)
[2019-04-19] MEDS ORDERED: ELIQUIS PO SCH (09:00)
[2019-04-19] MEDS: D5W 1000 ML IV 1,000 ML IV SCH ×3 (09:21→20:58)
[2019-04-19] MEDS: COLACE CAP 100 MG PO SCH ×2 (10:12→20:57)
[2019-04-19] MEDS: ZyPREXA TAB 5 MG PO SCH ×2 (10:12→20:57)
[2019-04-19] MEDS: ZINC SULFATE PO SCH ×2 (10:13→20:58)
[2019-04-19] MEDS: VALPROIC ACID 500 MG PO SCH ×2 (10:13→20:58)
[2019-04-19] MEDS: VITAMIN C PO SCH ×2 (10:13→20:58)
[2019-04-19] MEDS: TAB-A-VITE PO SCH (10:14)
[2019-04-19] MEDS: OSCAL+D or CALTRATE+D PO SCH ×2 (10:15→20:58)
[2019-04-19] MEDS: FERROUS GLUCONATE PO SCH (10:16)
[2019-04-19] MEDS: K-DUR TAB 20 MEQ PO SCH (10:16)
[2019-04-19] MEDS: LINZESS PO SCH (10:16)
[2019-04-19] MEDS: LOVENOX INJ 30 MG SYR SC SCH (10:58)
--- NOTE | 2019-04-19 19:48 | DR.H&P ---
H&P - History & Physical for Day of: H&P Date: 04/18/19 - Chief Complaint Chief Complaint: HIGH SODIUM AND CHLORIDE LEVELS, AMS - History of Present Illness History of Present Illness: IS A 83 YEAR OLD PATIENT OF OURS WHO IS A RESIDENT OF [facility]. SHE WAS SENT TO THE HOSPITAL A DIRECT ADMISSION DUE TO ELEVATED SODIUM AND CHLORIDE LEVELS AND ALTERED MENTAL STATUS. ON ARRIVAL TO THE HOSPITAL, SHE IS NOTED TO BE LETHARGIC. SHE OPENS EYES TO VERBAL STIMULI, BUT DOES NOT RESPOND VERBALLY. VITALS WERE 97.5-174-03-100%-110/73. LABS WERE OBTAINED. ABNORMAL LAB VALUES INCLUDE THE FOLLOWING: SODIUM 164, CHLORIDE 124, BUN 52, CREATININE 1.41, GLUCOSE 117, AST 41, TOTAL PROTEIN 8.5, GLOBULIN 4.7. URINALYSIS OBTAINED AND REVEALED: WBC 0-2, RBC NONE SEEN, LEUKOCYTES 1+, BACTERIA TRACE. SHE WAS STARTED ON D5W AT 125 ML/HR, LOVENOX 30MG SC DAILY, THE POTASSIUM AND MAGNESIUM PROTOCOLS, AND HOME MEDICATIONS WERE RESUMED. WE WILL HAVE PHARMACY REVIEW AND CONVERT WHAT WE CAN TO IV MEDICATIONS DUE TO DROWSINESS AND LETHARGY. OTHERWISE, WE PLAN TO FOLLOW UP WITH AM LABS AND CONTINUE TO MONITOR. - Past Medical History Past Medical History: Coronary Artery Disease, Hypertension, Dyslipidemia, Alzheimers, Dementia, Depression, Anxiety, Anemia, GERD, CHF Additional Medical History: Cataracts, Atrial fibrillation, Alzheimers diease, Atrial Fibrillation, Sleep Apnea, Previous blood transfusion - Past Surgical History Surgical History: CABG/Valve Surgery, Hysterectomy, Joint Replacement, Ortho Surgery Additional Surgical History: Pacemaker - Family History Family Medical History: Diabetes Mellitus, Cancer, Hypertension - Social History Does any household member use tobacco: No Alcohol Use: None Drug Use: None - Medications Home Medications: ciprofloxacin [From Cipro] Allergy (Verified 03/01/19 16:52) clonazepam Allergy (Verified 03/01/19 16:52) digoxin Allergy (Verified 03/01/19 16:52) donepezil [From Aricept] Allergy (Verified 03/01/19 16:52) gabapentin Allergy (Verified 03/01/19 16:52) methotrexate Allergy (Verified 03/01/19 16:52) methylprednisolone Allergy (Verified 03/01/19 16:52) metoclopramide [From Reglan] Allergy (Verified 03/01/19 16:52) morphine Allergy (Verified 03/01/19 16:52) oxycodone Allergy (Verified 03/01/19 16:52) Sulfa (Sulfonamide Antibiotics) [SULFA] Allergy (Verified 03/01/19 16:52) CONTINUE taking the following medications linaclotide [Linzess] 290 mcg PO DAILY 04/18/19 [History] magnesium hydroxide [Milk Of Magnesia Concentrated] 30 ml PO Q6H PRN 04/18/19 [History] olanzapine [Zyprexa] 5 mg PO BID 04/18/19 [History] - Review of Systems Constitutional: See HPI, Weakness Eyes: No Symptoms Reported ENT: No Symptoms Reported Respiratory: No Symptoms Reported Cardiovascular: No Symptoms Reported Gastrointestinal: No Symptoms Reported Genitourinary: No Symptoms Reported Musculoskeletal: No Symptoms Reported Skin: No Symptoms Reported Neurological: No Symptoms Reported - Physical Exam Vital Signs: Temperature 98.0 F Pulse Rate 94 Respiratory Rate 16 Blood Pressure [Right Arm] 109/59 Blood Pressure 100/59 O2 Sat by Pulse Oximetry 100 Oriented: Normal Eyes: Normal Ear: Normal Nose: Normal Throat: Normal Respiratory: Diminished Throughout Cardiovascular: Normal : Normal Auscultation: Bowel Sounds: Normal Palpation: Normal Tenderness: Normal Skin: Normal Musculoskeletal: Normal Psychiatric: Other (LETHARGIC ) Mood Description: Flat Affect: Flat Speech Pattern: Inappropriate - Assessment/Plan (1) Hypernatremia Status: Acute Plan: ADMIT, D5W AT 125 ML/HR, CONTINUE TO MONITOR (2) Altered mental status Qualifiers: Altered mental status type: transient alteration of awareness Qualified Code(s): R40.4 - Transient alteration of awareness Status: Acute - Allergies Allergies/Adverse Reactions: Allergies Allergy/AdvReac Type Severity Reaction Status Date / Time ciprofloxacin [From Cipro] Allergy Verified 03/01/19 16:52 clonazepam Allergy Verified 03/01/19 16:52 digoxin Allergy Verified 03/01/19 16:52 donepezil [From Aricept] Allergy Verified 03/01/19 16:52 gabapentin Allergy Verified 03/01/19 16:52 methotrexate Allergy Verified 03/01/19 16:52 methylprednisolone Allergy Verified 03/01/19 16:52 metoclopramide [From Reglan] Allergy Verified 03/01/19 16:52 morphine Allergy Verified 01/02/20 16:52 oxycodone Allergy Verified 03/01/19 16:52 Sulfa (Sulfonamide Allergy Verified 03/01/19 16:52 Antibiotics) [SULFA]
[2019-04-19] MEDS: PEPCID 20 MG IV PREMIX* 20 MG/50 ML BAG IV SCH (20:56)
[2019-04-19] MEDS: LEXAPRO PO SCH (20:57)
[2019-04-19] MEDS: DESYREL PO SCH (20:57)
[2019-04-20] MEDS: D5W 1000 ML IV 1,000 ML IV SCH ×3 (05:20→15:07)
[2019-04-20 06:46] LABS: BASOPHILS # (AUTO) 0.1 X10^3/uL (0.0-0.1); BASOPHILS % (AUTO) 1.4 % (0.2-1.0); EOSINOPHILS # (AUTO) 0.1 x10^3/uL (0.0-0.2); EOSINOPHILS % (AUTO) 1.6 % (0.9-2.9); HEMATOCRIT 35.7 % (36.0-47.0); HEMOGLOBIN 11.8 g/dL (12.0-16.0); LYMPHOCYTES # (AUTO) 2.3 X10^3/uL (1.3-2.9); MEAN CORPUSCULAR HEMOGLOBIN 31.4 pg (27.0-34.0); MEAN CORPUSCULAR HGB CONC 33.1 g/dL (33.0-35.0); MEAN CORPUSCULAR VOLUME 94.9 fL (80.0-100.0); MEAN PLATELET VOLUME 8.7 fL (7.4-11.0); MONOCYTES # (AUTO) 0.4 x10^3/uL (0.3-0.8); MONOCYTES % (AUTO) 8.7 % (0.0-13.0); NEUTROPHILS # (AUTO) 2.2 x10^3/uL (2.2-4.8); NEUTROPHILS % (AUTO) 43.3 % (42.0-75.0); PLATELET COUNT 180 X10^3/uL (150.0-450.0); RED BLOOD COUNT 3.76 X10^6/uL (3.5-5.4); RED CELL DISTRIBUTION WIDTH 14.5 % (11.6-16.5); WHITE BLOOD COUNT 5.1 X10^3/uL (3.6-10.0)
[2019-04-20 07:00] LABS: ALANINE AMINOTRANSFERASE 38 Units/L (12-78); ALBUMIN 2.9 g/dL (3.4-5.0); ALKALINE PHOSPHATASE 58 Units/L (46-116); ASPARTATE AMINO TRANSFERASE 34 Units/L (15-37); BLOOD UREA NITROGEN 37 mg/dL (7-18); CALCIUM 8.2 mg/dL (8.5-10.1); CARBON DIOXIDE 29.8 mmol/L (21-32); CHLORIDE 114 mmol/L (98-107); COR CA(FOR HYPOALB) 9.1 mg/dL (8.5-10.1); COR NA(FOR HYPERGLY) 152 mmol/L (136-145); CREATININE 0.98 mg/dL (0.55-1.02); TOTAL PROTEIN 6.7 g/dL (6.4-8.2); eGFR NON BLACK RACES 58 (>60)
[2019-04-20 07:02] LABS: SODIUM 151 mmol/L (136-145)
[2019-04-20] MEDS: COLACE CAP 100 MG PO SCH ×2 (09:21→22:00)
[2019-04-20] MEDS: FERROUS GLUCONATE PO SCH (09:22)
[2019-04-20] MEDS: K-DUR TAB 20 MEQ PO SCH (09:22)
[2019-04-20] MEDS: LINZESS PO SCH (09:23)
[2019-04-20] MEDS: OSCAL+D or CALTRATE+D PO SCH ×2 (09:23→22:00)
[2019-04-20] MEDS: TAB-A-VITE PO SCH (09:23)
[2019-04-20] MEDS: VITAMIN C PO SCH ×2 (09:24→22:00)
[2019-04-20] MEDS: ZINC SULFATE PO SCH ×2 (09:24→22:00)
[2019-04-20] MEDS: VALPROIC ACID 500 MG PO SCH ×2 (09:24→22:00)
[2019-04-20] MEDS: ZyPREXA TAB 5 MG PO SCH ×2 (09:25→22:00)
[2019-04-20] MEDS: LOVENOX INJ 30 MG SYR SC SCH (09:27)
[2019-04-20] MEDS: PEPCID 20 MG IV PREMIX* 20 MG/50 ML BAG IV SCH (09:27)
[2019-04-20] MEDS ORDERED: DULCOLAX SUPPOSITORY 10 MG RECTAL ONE (10:00)
[2019-04-20] MEDS ORDERED: PHARMACY CONSULT - TPN XX SCH (11:00)
[2019-04-20] MEDS: ALBUMIN HUMAN 25%- 100 ML 100 ML IV SCH (13:25)
[2019-04-20] MEDS ORDERED: DRUG FILTER EXTENSION SET ONE (14:07)
[2019-04-20] MEDS: CLINIMIX 4.25 %/10 % 1,000 ML with MVI INJ (ADULT) 10 ML IV SCH ×2 (14:10)
[2019-04-20] MEDS ORDERED: NS 500 ML IV 500 ML IV ONE (17:40)
[2019-04-20] MEDS: K-RIDER 10 MEQ/NS 100 ML 10 MEQ/100 ML BAG IV PRN ×3 (18:02→22:27)
[2019-04-20] MEDS: LEXAPRO PO SCH (22:00)
[2019-04-20] MEDS: DESYREL PO SCH (22:00)
[2019-04-20] MEDS: VANDAZOLE VG SCH (22:00)
[2019-04-21] MEDS: D5W 1000 ML IV 1,000 ML IV SCH ×2 (00:40→03:19)
[2019-04-21] MEDS: K-RIDER 10 MEQ/NS 100 ML 10 MEQ/100 ML BAG IV PRN ×4 (01:03→23:00)
[2019-04-21 06:11] LABS: BASOPHILS % (AUTO) 0.8 % (0.2-1.0); EOSINOPHILS # (AUTO) 0.1 x10^3/uL (0.0-0.2); EOSINOPHILS % (AUTO) 1.6 % (0.9-2.9); HEMATOCRIT 33.6 % (36.0-47.0); HEMOGLOBIN 11.3 g/dL (12.0-16.0); LYMPHOCYTES # (AUTO) 1.8 X10^3/uL (1.3-2.9); LYMPHOCYTES % (AUTO) 39.3 % (21.0-51.0); MEAN CORPUSCULAR HEMOGLOBIN 31.3 pg (27.0-34.0); MEAN CORPUSCULAR HGB CONC 33.7 g/dL (33.0-35.0); MEAN CORPUSCULAR VOLUME 92.8 fL (80.0-100.0); MEAN PLATELET VOLUME 9.1 fL (7.4-11.0); MONOCYTES # (AUTO) 0.3 x10^3/uL (0.3-0.8); MONOCYTES % (AUTO) 7.7 % (0.0-13.0); NEUTROPHILS # (AUTO) 2.3 x10^3/uL (2.2-4.8); NEUTROPHILS % (AUTO) 50.6 % (42.0-75.0); PLATELET COUNT 148 X10^3/uL (150.0-450.0); RED BLOOD COUNT 3.62 X10^6/uL (3.5-5.4); RED CELL DISTRIBUTION WIDTH 13.7 % (11.6-16.5); WHITE BLOOD COUNT 4.5 X10^3/uL (3.6-10.0)
[2019-04-21 06:36] LABS: ALANINE AMINOTRANSFERASE 33 Units/L (12-78); ALBUMIN 3.2 g/dL (3.4-5.0); ALKALINE PHOSPHATASE 51 Units/L (46-116); ASPARTATE AMINO TRANSFERASE 27 Units/L (15-37); BLOOD UREA NITROGEN 21 mg/dL (7-18); CALCIUM 8.5 mg/dL (8.5-10.1); CARBON DIOXIDE 26.2 mmol/L (21-32); CHLORIDE 109 mmol/L (98-107); COR CA(FOR HYPOALB) 9.1 mg/dL (8.5-10.1); COR NA(FOR HYPERGLY) 144 mmol/L (136-145); CREATININE 0.65 mg/dL (0.55-1.02); SODIUM 143 mmol/L (136-145); TOTAL PROTEIN 6.3 g/dL (6.4-8.2); eGFR NON BLACK RACES > 60 (>60)
[2019-04-21] MEDS: ALBUMIN HUMAN 25%- 100 ML 100 ML IV SCH (09:00)
[2019-04-21] MEDS: LOVENOX INJ 40 MG SYR SC SCH (09:00)
[2019-04-21] MEDS: LINZESS PO SCH ×2 (10:00→19:24)
[2019-04-21] MEDS: PEPCID 20 MG IV PREMIX* 20 MG/50 ML BAG IV SCH (10:04)
[2019-04-21] MEDS ORDERED: D5W IV SCH ×2 (10:08)
[2019-04-21] MEDS ORDERED: POTASSIUM ACETATE IV SCH ×2 (10:08)
[2019-04-21] MEDS: OSCAL+D or CALTRATE+D PO SCH ×3 (10:13→21:08)
[2019-04-21] MEDS: TAB-A-VITE PO SCH ×2 (10:13→19:25)
[2019-04-21] MEDS: ZINC SULFATE PO SCH ×3 (10:14→21:09)
[2019-04-21] MEDS: FERROUS GLUCONATE PO SCH ×2 (10:14→19:23)
[2019-04-21] MEDS: VITAMIN C PO SCH ×3 (10:14→21:09)
[2019-04-21] MEDS: ZyPREXA TAB 5 MG PO SCH ×3 (10:14→21:09)
[2019-04-21] MEDS: D5W 1000 ML IV 1,000 ML with POTASSIUM CHLORIDE INJ 20 MEQ VIAL 20 MEQ IV SCH ×2 (14:00)
[2019-04-21] MEDS: COLACE CAP 100 MG PO SCH ×2 (14:21→21:08)
[2019-04-21] MEDS: K-DUR TAB 20 MEQ PO SCH (14:21)
[2019-04-21] MEDS: VALPROIC ACID 500 MG PO SCH ×2 (14:22→21:08)
[2019-04-21] MEDS: MORPHINE SULFATE INJ 2 MG INJ IVP PRN ×2 (14:38→22:00)
[2019-04-21] MEDS ORDERED: DRUG FILTER EXTENSION SET ONE (17:56)
[2019-04-21] MEDS: CLINIMIX 4.25 %/10 % 1,000 ML with MVI INJ (ADULT) 10 ML IV SCH ×2 (18:03)
[2019-04-21] MEDS: DESYREL PO SCH (21:08)
[2019-04-21] MEDS: LEXAPRO PO SCH (21:08)
[2019-04-21] MEDS: VANDAZOLE VG SCH (21:09)
[2019-04-22] MEDS: D5W 1000 ML IV 1,000 ML with POTASSIUM CHLORIDE INJ 20 MEQ VIAL 20 MEQ IV SCH ×6 (03:57→15:00)
[2019-04-22 05:31] LABS: BASOPHILS % (AUTO) 0.6 % (0.2-1.0); EOSINOPHILS # (AUTO) 0.2 x10^3/uL (0.0-0.2); EOSINOPHILS % (AUTO) 2.9 % (0.9-2.9); HEMATOCRIT 32.9 % (36.0-47.0); HEMOGLOBIN 11.3 g/dL (12.0-16.0); LYMPHOCYTES # (AUTO) 1.7 X10^3/uL (1.3-2.9); LYMPHOCYTES % (AUTO) 32.5 % (21.0-51.0); MEAN CORPUSCULAR HEMOGLOBIN 31.7 pg (27.0-34.0); MEAN CORPUSCULAR HGB CONC 34.3 g/dL (33.0-35.0); MEAN CORPUSCULAR VOLUME 92.4 fL (80.0-100.0); MEAN PLATELET VOLUME 9.3 fL (7.4-11.0); MONOCYTES # (AUTO) 0.5 x10^3/uL (0.3-0.8); MONOCYTES % (AUTO) 9.9 % (0.0-13.0); NEUTROPHILS # (AUTO) 2.8 x10^3/uL (2.2-4.8); NEUTROPHILS % (AUTO) 54.1 % (42.0-75.0); PLATELET COUNT 164 X10^3/uL (150.0-450.0); RED BLOOD COUNT 3.56 X10^6/uL (3.5-5.4); RED CELL DISTRIBUTION WIDTH 13.9 % (11.6-16.5); WHITE BLOOD COUNT 5.2 X10^3/uL (3.6-10.0)
[2019-04-22 05:41] LABS: ALANINE AMINOTRANSFERASE 57 Units/L (12-78); ALBUMIN 3.2 g/dL (3.4-5.0); ALKALINE PHOSPHATASE 71 Units/L (46-116); ASPARTATE AMINO TRANSFERASE 61 Units/L (15-37); BLOOD UREA NITROGEN 19 mg/dL (7-18); CALCIUM 8.6 mg/dL (8.5-10.1); CARBON DIOXIDE 23.5 mmol/L (21-32); CHLORIDE 109 mmol/L (98-107); COR CA(FOR HYPOALB) 9.2 mg/dL (8.5-10.1); COR NA(FOR HYPERGLY) 142 mmol/L (136-145); CREATININE 0.62 mg/dL (0.55-1.02); SODIUM 142 mmol/L (136-145); TOTAL PROTEIN 6.3 g/dL (6.4-8.2); eGFR NON BLACK RACES > 60 (>60)
[2019-04-22] MEDS: ALBUMIN HUMAN 25%- 100 ML 100 ML IV SCH (09:28)
[2019-04-22] MEDS: PEPCID 20 MG IV PREMIX* 20 MG/50 ML BAG IV SCH (09:33)
[2019-04-22] MEDS: LOVENOX INJ 40 MG SYR SC SCH (09:34)
[2019-04-22] MEDS: K-RIDER 10 MEQ/NS 100 ML 10 MEQ/100 ML BAG IV PRN ×2 (09:36→13:08)
[2019-04-22] MEDS: COLACE CAP 100 MG PO SCH ×2 (09:42→21:33)
[2019-04-22] MEDS: FERROUS GLUCONATE PO SCH (09:43)
[2019-04-22] MEDS: OSCAL+D or CALTRATE+D PO SCH ×2 (09:43→21:34)
[2019-04-22] MEDS: K-DUR TAB 20 MEQ PO SCH (09:43)
[2019-04-22] MEDS: LINZESS PO SCH (09:43)
[2019-04-22] MEDS: TAB-A-VITE PO SCH (09:43)
[2019-04-22] MEDS: VALPROIC ACID 500 MG PO SCH ×2 (09:44→21:34)
[2019-04-22] MEDS: ZyPREXA TAB 5 MG PO SCH ×2 (09:44→21:35)
[2019-04-22] MEDS: ZINC SULFATE PO SCH ×2 (09:44→21:35)
[2019-04-22] MEDS: VITAMIN C PO SCH ×2 (09:44→21:35)
[2019-04-22] MEDS: MORPHINE SULFATE INJ 2 MG INJ IVP PRN (14:31)
[2019-04-22] MEDS: CLINIMIX 4.25 %/10 % 1,000 ML with MVI INJ (ADULT) 10 ML IV SCH ×4 (14:38→17:15)
[2019-04-22] MEDS ORDERED: DRUG FILTER EXTENSION SET ONE (16:00)
[2019-04-22] MEDS: DESYREL PO SCH (21:33)
[2019-04-22] MEDS: LEXAPRO PO SCH (21:34)
[2019-04-22] MEDS: VANDAZOLE VG SCH (21:34)
--- NOTE | 2019-04-22 21:35 | PCM.PROG ---
Progress Note - Progress Note for Day of Date of Exam: 04/20/19 - Subjective Subjective: WAS ADMITTED FOR HYPERNATREMIA AND ALTERED MENTAL STATUS. TODAY, SHE IS LYING IN BED WITH EYES CLOSED ON MORNING ROUNDS. SHE CONTINUES TO BE DIFFICULT TO AROUSE TODAY. SHE DOES MOAN TO PAINFUL STIMULI. ON EXAMINATION, HEART IS REGULAR IN RATE AND RHYTHM. BILATERAL LUNGS ARE NOTED WITH DIMINISHED LUNG SOUNDS THROUGHOUT. ABDOMEN IS ROUND, SOFT, AND NON-TENDER WITH NORMAL BOWEL SOUNDS NOTED IN ALL QUADRANTS. HER VITALS THIS MORNING ARE: 97.0-83-18-100%-100/58. LABS WERE OBTAINED. ABNORMAL LAB VALUES INCLUDE THE FOLLOWING: HGB 11.8, HCT 35.7, SODIUM 151, POTASSIUM 3.2, CHLORIDE 14, BUN 37, GLUCOSE 131, CALCIUM 8.2, ALBUMIN 2.9. SHE IS CURRENTLY RECEIVING D5W AT 125 ML/HR, LOVENOX 30MG SC DAILY, THE POTASSIUM AND MAGNESIUM PROTOCOLS, AND HOME MEDICATIONS WERE RESUMED. WE WILL CONTINUE WITH CURRENT PLAN OF CARE TODAY. OTHERWISE, WE PLAN TO FOLLOW UP WITH AM LABS AND CONTINUE TO MONITOR. - Past Medical Family Social History Past Med/Fam/Surg Hx: No changes since H&P Allergies: Allergies ciprofloxacin [From Cipro] Allergy (Verified 03/01/19 16:52) clonazepam Allergy (Verified 03/01/19 16:52) digoxin Allergy (Verified 03/01/19 16:52) donepezil [From Aricept] Allergy (Verified 03/01/19 16:52) gabapentin Allergy (Verified 03/01/19 16:52) methotrexate Allergy (Verified 03/01/19 16:52) methylprednisolone Allergy (Verified 03/01/19 16:52) metoclopramide [From Reglan] Allergy (Verified 03/01/19 16:52) oxycodone Allergy (Verified 03/01/19 16:52) Sulfa (Sulfonamide Antibiotics) [SULFA] Allergy (Verified 03/01/19 16:52) - Review of Systems ROS: No change since H&P - Vital Signs and I&O's Vital Signs: Temperature 98.0 F Pulse Rate 82 Respiratory Rate 16 Blood Pressure [Right Arm] 109/59 Blood Pressure 94/52 O2 Sat by Pulse Oximetry 100 Intake and Output: Intake & Output 04/20/19 04/21/19 04/22/19 04/23/19 11:59 11:59 11:59 11:59 Intake Total 2246 / 2246 3595 / 3595 3181 / 3181 1462 / 1462 Output Total 375 / 375 1250 / 1250 2450 / 2450 Balance 1871 / 1871 2345 / 2345 731 / 731 1462 / 1462 - Physical Exam Oriented: Normal Eyes: Normal Ear: Normal Nose: Normal Throat: Normal Respiratory: Generalized, Diminished Cardiovascular: Normal : Normal Auscultation: Bowel Sounds: Normal Palpation: Normal Tenderness: Normal Skin: Normal Musculoskeletal: Normal Psychiatric: Other (LETHARGIC ) Mood Description: Flat Affect: Flat Speech Pattern: Aphasic - Laboratory and Diagnostics Result Diagrams: 04/22/19 04:35 04/22/19 04:35 Labs: Laboratory WBC 5.2 X10^3/uL (3.6-10.0) 04/22/19 04:35 RBC 3.56 X10^6/uL (3.5-5.4) 04/22/19 04:35 Hgb 11.3 g/dL (12.0-16.0) L 04/22/19 04:35 Hct 32.9 % (36.0-47.0) L 04/22/19 04:35 MCV 92.4 fL (80.0-100.0) 04/22/19 04:35 MCH 31.7 pg (27.0-34.0) 04/22/19 04:35 MCHC 34.3 g/dL (33.0-35.0) 04/22/19 04:35 RDW 13.9 % (11.6-16.5) 04/22/19 04:35 Plt Count 164 X10^3/uL (150.0-450.0) 04/22/19 04:35 MPV 9.3 fL (7.4-11.0) 04/22/19 04:35 Neut % (Auto) 54.1 % (42.0-75.0) 04/22/19 04:35 Lymph % (Auto) 32.5 % (21.0-51.0) 04/22/19 04:35 [place] % (Auto) 9.9 % (0.0-13.0) 04/22/19 04:35 Eos % (Auto) 2.9 % (0.9-2.9) 04/22/19 04:35 Baso % (Auto) 0.6 % (0.2-1.0) 04/22/19 04:35 Neut # (Auto) 2.8 x10^3/uL (2.2-4.8) 04/22/19 04:35 Lymph # (Auto) 1.7 X10^3/uL (1.3-2.9) 04/22/19 04:35 [place] # (Auto) 0.5 x10^3/uL (0.3-0.8) 04/22/19 04:35 Eos # (Auto) 0.2 x10^3/uL (0.0-0.2) 04/22/19 04:35 Baso # (Auto) 0.0 X10^3/uL (0.0-0.1) 04/22/19 04:35 Absolute Nucleated RBC 0.1 /100WBC 04/22/19 04:35 Sodium 142 mmol/L (136-145) 04/22/19 04:35 Corrected Sodium 142 mmol/L (136-145) 04/22/19 04:35 Potassium 3.8 mmol/L (3.5-5.1) 04/22/19 04:35 Chloride 109 mmol/L (98-107) H 04/22/19 04:35 Carbon Dioxide 23.5 mmol/L (21-32) 04/22/19 04:35 BUN 19 mg/dL (7-18) H 04/22/19 04:35 Creatinine 0.62 mg/dL (0.55-1.02) 04/22/19 04:35 Est GFR (MDRD) Af Amer > 60 (>60) 04/22/19 04:35 Est GFR (MDRD) Non-Af > 60 (>60) 04/22/19 04:35 Glucose 118 mg/dL (65-99) H 04/22/19 04:35 Calcium 8.6 mg/dL (8.5-10.1) 04/22/19 04:35 Corrected Calcium 9.2 mg/dL (8.5-10.1) 04/22/19 04:35 Magnesium 2.0 mg/dL (1.7-2.9) 04/21/19 04:51 Total Bilirubin 0.50 mg/dL (0.2-1.0) 04/22/19 04:35 AST 61 Units/L (15-37) H 04/22/19 04:35 ALT 57 Units/L (12-78) 04/22/19 04:35 Alkaline Phosphatase 71 Units/L (46-116) 04/22/19 04:35 Total Protein 6.3 g/dL (6.4-8.2) L 04/22/19 04:35 Albumin 3.2 g/dL (3.4-5.0) L 04/22/19 04:35 Globulin 3.1 g/dL (2.5-4.5) 04/22/19 04:35 Albumin/Globulin Ratio 1.0 Ratio (1.1-2.1) L 04/22/19 04:35 Specimen Type Catherized urine 04/18/19 19:45 Urine Color Yellow (YELLOW) 04/18/19 19:45 Urine Appearance Slightly hazy (CLEAR) 04/18/19 19:45 Urine pH 6.0 (5.0 - 8.0) 04/18/19 19:45 Ur Specific [place] 1.020 (1.000-1.030) 04/18/19 19:45 Urine Protein 1+ (NEGATIVE) 04/18/19 19:45 Urine Glucose (UA) Negative (NEGATIVE) 04/18/19 19:45 Urine Ketones 2+ (NEGATIVE) 04/18/19 19:45 Urine Occult Blood Negative (NEGATIVE) 04/18/19 19:45 Urine Nitrite Negative (NEGATIVE) 04/18/19 19:45 Urine Bilirubin Negative (NEGATIVE) 04/18/19 19:45 Urine Urobilinogen 1+ (NORMAL) 04/18/19 19:45 Ur Leukocyte Esterase 1+ (NEGATIVE) 04/18/19 19:45 Urine RBC None seen /HPF (0-3) 04/18/19 19:45 Urine WBC 0-2 /HPF (0-5) 04/18/19 19:45 Ur Squamous Epith Cells Moderate /HPF (NEGATIVE) 04/18/19 19:45 Amorphous Sediment 1+ /HPF (NEGATIVE) 04/18/19 19:45 Urine Bacteria Trace /HPF (NEGATIVE) 04/18/19 19:45 Ur Culture Indicated? No/not indicated 04/18/19 19:45 - Plan (1) Hypernatremia Status: Acute Plan: D5W AT 125 ML/HR, CONTINUE TO MONITOR (2) Altered mental status Status: Acute Qualifiers: Altered mental status type: transient alteration of awareness Qualified Code(s): R40.4 - Transient alteration of awareness
[2019-04-23] MEDS: D5W 1000 ML IV 1,000 ML with POTASSIUM CHLORIDE INJ 20 MEQ VIAL 20 MEQ IV SCH ×2 (04:11)
[2019-04-23 05:25] LABS: BASOPHILS % (AUTO) 0.7 % (0.2-1.0); EOSINOPHILS # (AUTO) 0.2 x10^3/uL (0.0-0.2); EOSINOPHILS % (AUTO) 4.3 % (0.9-2.9); HEMATOCRIT 32.1 % (36.0-47.0); HEMOGLOBIN 10.9 g/dL (12.0-16.0); LYMPHOCYTES # (AUTO) 1.9 X10^3/uL (1.3-2.9); LYMPHOCYTES % (AUTO) 35.4 % (21.0-51.0); MEAN CORPUSCULAR HEMOGLOBIN 31.4 pg (27.0-34.0); MEAN CORPUSCULAR HGB CONC 33.9 g/dL (33.0-35.0); MEAN CORPUSCULAR VOLUME 92.6 fL (80.0-100.0); MEAN PLATELET VOLUME 9.5 fL (7.4-11.0); MONOCYTES # (AUTO) 0.5 x10^3/uL (0.3-0.8); MONOCYTES % (AUTO) 10.3 % (0.0-13.0); NEUTROPHILS # (AUTO) 2.6 x10^3/uL (2.2-4.8); NEUTROPHILS % (AUTO) 49.3 % (42.0-75.0); PLATELET COUNT 159 X10^3/uL (150.0-450.0); RED BLOOD COUNT 3.47 X10^6/uL (3.5-5.4); RED CELL DISTRIBUTION WIDTH 14.1 % (11.6-16.5); WHITE BLOOD COUNT 5.2 X10^3/uL (3.6-10.0)
[2019-04-23 05:46] LABS: ALANINE AMINOTRANSFERASE 39 Units/L (12-78); ALBUMIN 3.6 g/dL (3.4-5.0); ALKALINE PHOSPHATASE 65 Units/L (46-116); ASPARTATE AMINO TRANSFERASE 28 Units/L (15-37); BLOOD UREA NITROGEN 16 mg/dL (7-18); CALCIUM 8.8 mg/dL (8.5-10.1); CARBON DIOXIDE 21.7 mmol/L (21-32); CHLORIDE 107 mmol/L (98-107); CREATININE 0.59 mg/dL (0.55-1.02); SODIUM 139 mmol/L (136-145); TOTAL PROTEIN 6.5 g/dL (6.4-8.2); eGFR NON BLACK RACES > 60 (>60)
[2019-04-23] MEDS: ALBUMIN HUMAN 25%- 100 ML 100 ML IV SCH (09:18)
[2019-04-23] MEDS: FERROUS GLUCONATE PO SCH ×2 (09:18→11:22)
[2019-04-23] MEDS: LOVENOX INJ 40 MG SYR SC SCH (09:19)
[2019-04-23] MEDS: COLACE CAP 100 MG PO SCH (11:22)
[2019-04-23] MEDS: K-DUR TAB 20 MEQ PO SCH (11:22)
[2019-04-23] MEDS: OSCAL+D or CALTRATE+D PO SCH (11:23)
[2019-04-23] MEDS: LINZESS PO SCH (11:23)
[2019-04-23] MEDS: VITAMIN C PO SCH (11:23)
[2019-04-23] MEDS: TAB-A-VITE PO SCH (11:23)
[2019-04-23] MEDS: ZINC SULFATE PO SCH (11:23)
[2019-04-23] MEDS: ZyPREXA TAB 5 MG PO SCH (11:23)
[2019-04-23] MEDS: VALPROIC ACID 500 MG PO SCH (11:24)
[2019-04-23] MEDS: PEPCID 20 MG IV PREMIX* 20 MG/50 ML BAG IV SCH (11:46)
[2019-04-23 15:47] VITALS: BP 95/51
--- NOTE | 2019-04-23 21:56 | PCM.PROG ---
Progress Note - Progress Note for Day of Date of Exam: 04/21/19 - Subjective Subjective: WAS ADMITTED FOR HYPERNATREMIA AND ALTERED MENTAL STATUS. TODAY, SHE IS LYING IN BED WITH EYES CLOSED ON MORNING ROUNDS. SHE CONTINUES TO BE DIFFICULT TO AROUSE TODAY. SHE DOES MOAN TO PAINFUL STIMULI. ON EXAMINATION, HEART IS REGULAR IN RATE AND RHYTHM. BILATERAL LUNGS ARE NOTED WITH DIMINISHED LUNG SOUNDS THROUGHOUT. ABDOMEN IS ROUND, SOFT, AND NON-TENDER WITH NORMAL BOWEL SOUNDS NOTED IN ALL QUADRANTS. HER VITALS THIS MORNING ARE: 97.8-71-11-100%-104/52. LABS WERE OBTAINED. ABNORMAL LAB VALUES INCLUDE THE FOLLOWING: HGB 11.3, HCT 33.6, POTASSIUM 3.2, CHLORIDE 109, BUN 21, GLUCOSE 128, TOTAL PROTEIN 6.3, ALBUMIN 3.2. SHE IS CURRENTLY RECEIVING D5W, TPN, ALBUMIN 25% IV DAILY, LOVENOX 30MG SC DAILY, THE POTASSIUM AND MAGNESIUM PROTOCOLS, AND HOME MEDICATIONS WERE RESUMED. WE WILL CONTINUE WITH CURRENT PLAN OF CARE TODAY AND ADD POTASSIUM TO HER IV FLUIDS TODAY. OTHERWISE, WE PLAN TO FOLLOW UP WITH AM LABS AND CONTINUE TO MONITOR. - Past Medical Family Social History Past Med/Fam/Surg Hx: No changes since H&P Allergies: Allergies ciprofloxacin [From Cipro] Allergy (Verified 03/01/19 16:52) clonazepam Allergy (Verified 03/01/19 16:52) digoxin Allergy (Verified 03/01/19 16:52) donepezil [From Aricept] Allergy (Verified 03/01/19 16:52) gabapentin Allergy (Verified 03/01/19 16:52) methotrexate Allergy (Verified 03/01/19 16:52) methylprednisolone Allergy (Verified 03/01/19 16:52) metoclopramide [From Reglan] Allergy (Verified 03/01/19 16:52) oxycodone Allergy (Verified 03/01/19 16:52) Sulfa (Sulfonamide Antibiotics) [SULFA] Allergy (Verified 03/01/19 16:52) - Review of Systems ROS: No change since H&P - Vital Signs and I&O's Vital Signs: Temperature 97.8 F Pulse Rate 93 Respiratory Rate 21 Blood Pressure [Right Arm] 109/59 Blood Pressure 95/51 O2 Sat by Pulse Oximetry 100 Intake and Output: Intake & Output 04/21/19 04/22/19 04/23/19 04/24/19 11:59 11:59 11:59 11:59 Intake Total 3595 / 3595 3181 / 3181 3742 / 3742 570 / 570 Output Total 1250 / 1250 2450 / 2450 900 / 900 2 / 2 Balance 2345 / 2345 731 / 731 2842 / 2842 568 / 568 - Physical Exam Oriented: Normal Eyes: Normal Ear: Normal Nose: Normal Throat: Normal Respiratory: Generalized, Diminished Cardiovascular: Normal : Normal Auscultation: Bowel Sounds: Normal Tenderness: Normal Skin: Normal Musculoskeletal: Normal Psychiatric: Other (LETHARGIC ) Mood Description: Flat Affect: Flat Speech Pattern: Aphasic - Laboratory and Diagnostics Result Diagrams: 04/23/19 04:16 04/23/19 04:16 Labs: Laboratory WBC 5.2 X10^3/uL (3.6-10.0) 04/23/19 04:16 RBC 3.47 X10^6/uL (3.5-5.4) L 04/23/19 04:16 Hgb 10.9 g/dL (12.0-16.0) L 04/23/19 04:16 Hct 32.1 % (36.0-47.0) L 04/23/19 04:16 MCV 92.6 fL (80.0-100.0) 04/23/19 04:16 MCH 31.4 pg (27.0-34.0) 04/23/19 04:16 MCHC 33.9 g/dL (33.0-35.0) 04/23/19 04:16 RDW 14.1 % (11.6-16.5) 04/23/19 04:16 Plt Count 159 X10^3/uL (150.0-450.0) 04/23/19 04:16 MPV 9.5 fL (7.4-11.0) 04/23/19 04:16 Neut % (Auto) 49.3 % (42.0-75.0) 04/23/19 04:16 Lymph % (Auto) 35.4 % (21.0-51.0) 04/23/19 04:16 [place] % (Auto) 10.3 % (0.0-13.0) 04/23/19 04:16 Eos % (Auto) 4.3 % (0.9-2.9) H 04/23/19 04:16 Baso % (Auto) 0.7 % (0.2-1.0) 04/23/19 04:16 Neut # (Auto) 2.6 x10^3/uL (2.2-4.8) 04/23/19 04:16 Lymph # (Auto) 1.9 X10^3/uL (1.3-2.9) 04/23/19 04:16 [place] # (Auto) 0.5 x10^3/uL (0.3-0.8) 04/23/19 04:16 Eos # (Auto) 0.2 x10^3/uL (0.0-0.2) 04/23/19 04:16 Baso # (Auto) 0.0 X10^3/uL (0.0-0.1) 04/23/19 04:16 Absolute Nucleated RBC 0.1 /100WBC 04/23/19 04:16 Sodium 139 mmol/L (136-145) 04/23/19 04:16 Corrected Sodium TNP 04/23/19 04:16 Potassium 3.8 mmol/L (3.5-5.1) 04/23/19 04:16 Chloride 107 mmol/L (98-107) 04/23/19 04:16 Carbon Dioxide 21.7 mmol/L (21-32) 04/23/19 04:16 BUN 16 mg/dL (7-18) 04/23/19 04:16 Creatinine 0.59 mg/dL (0.55-1.02) 04/23/19 04:16 Est GFR (MDRD) Af Amer > 60 (>60) 04/23/19 04:16 Est GFR (MDRD) Non-Af > 60 (>60) 04/23/19 04:16 Glucose 102 mg/dL (65-99) H 04/23/19 04:16 Calcium 8.8 mg/dL (8.5-10.1) 04/23/19 04:16 Corrected Calcium TNP 04/23/19 04:16 Magnesium 2.0 mg/dL (1.7-2.9) 04/21/19 04:51 Total Bilirubin 0.40 mg/dL (0.2-1.0) 04/23/19 04:16 AST 28 Units/L (15-37) 04/23/19 04:16 ALT 39 Units/L (12-78) 04/23/19 04:16 Alkaline Phosphatase 65 Units/L (46-116) 04/23/19 04:16 Total Protein 6.5 g/dL (6.4-8.2) 04/23/19 04:16 Albumin 3.6 g/dL (3.4-5.0) 04/23/19 04:16 Globulin 2.9 g/dL (2.5-4.5) 04/23/19 04:16 Albumin/Globulin Ratio 1.2 Ratio (1.1-2.1) 04/23/19 04:16 Specimen Type Catherized urine 04/18/19 19:45 Urine Color Yellow (YELLOW) 04/18/19 19:45 Urine Appearance Slightly hazy (CLEAR) 04/18/19 19:45 Urine pH 6.0 (5.0 - 8.0) 04/18/19 19:45 Ur Specific [place] 1.020 (1.000-1.030) 04/18/19 19:45 Urine Protein 1+ (NEGATIVE) 04/18/19 19:45 Urine Glucose (UA) Negative (NEGATIVE) 04/18/19 19:45 Urine Ketones 2+ (NEGATIVE) 04/18/19 19:45 Urine Occult Blood Negative (NEGATIVE) 04/18/19 19:45 Urine Nitrite Negative (NEGATIVE) 04/18/19 19:45 Urine Bilirubin Negative (NEGATIVE) 04/18/19 19:45 Urine Urobilinogen 1+ (NORMAL) 04/18/19 19:45 Ur Leukocyte Esterase 1+ (NEGATIVE) 04/18/19 19:45 Urine RBC None seen /HPF (0-3) 04/18/19 19:45 Urine WBC 0-2 /HPF (0-5) 04/18/19 19:45 Ur Squamous Epith Cells Moderate /HPF (NEGATIVE) 04/18/19 19:45 Amorphous Sediment 1+ /HPF (NEGATIVE) 04/18/19 19:45 Urine Bacteria Trace /HPF (NEGATIVE) 04/18/19 19:45 Ur Culture Indicated? No/not indicated 04/18/19 19:45 - Plan (1) Hypernatremia Status: Acute Plan: D5W WITH 20MEQ KCL AT 125 ML/HR, CONTINUE TO MONITOR (2) Altered mental status Status: Acute Qualifiers: Altered mental status type: transient alteration of awareness Qualified Code(s): R40.4 - Transient alteration of awareness
--- NOTE | 2019-04-23 22:07 | PCM.PROG ---
Progress Note - Progress Note for Day of Date of Exam: 04/22/19 - Subjective Subjective: WAS ADMITTED FOR HYPERNATREMIA AND ALTERED MENTAL STATUS. TODAY, SHE IS LYING IN BED WITH EYES CLOSED ON MORNING ROUNDS. SHE AWAKNES TO VERBAL STIMULI TODAY. ON EXAMINATION, HEART IS REGULAR IN RATE AND RHYTHM. BILATERAL LUNGS ARE NOTED WITH DIMINISHED LUNG SOUNDS THROUGHOUT. ABDO MEN IS ROUND, SOFT, AND NON-TENDER WITH NORMAL BOWEL SOUNDS NOTED IN ALL QUADRANTS. HER VITALS THIS MORNING ARE: 97.6-78-15-100%-106/62. LABS WERE OBTAINED. ABNORMAL LAB VALUES INCLUDE THE FOLLOWING: HGB 11.3, HCT 32.9, CHLORIDE 109, BUN 19, GLUCOSE 118, AST 61, TOTAL PROTEIN 6.3, ALBUMIN 3.2. SHE I S CURRENTLY RECEIVING D5W WITH 20MEQ KCL, TPN, ALBUMIN 25% IV DAILY, LOVENOX 30MG SC DAILY, THE POTASSIUM AND MAGNESIUM PROTOCOLS, AND HOME MEDICATIONS WERE RESUMED. WE WILL CONTINUE WITH CURRENT PLAN OF CARE TODAY. OTHERWISE, WE PLAN TO FOLLOW UP WITH AM LABS AND CONTINUE TO MONITOR. - Past Medical Family Social History Past Med/Fam/Surg Hx: No changes since H&P Allergies: Allergies ciprofloxacin [From Cipro] Allergy (Verified 03/01/19 16:52) clonazepam Allergy (Verified 03/01/19 16:52) digoxin Allergy (Verified 03/01/19 16:52) donepezil [From Aricept] Allergy (Verified 03/01/19 16:52) gabapentin Allergy (Verified 03/01/19 16:52) methotrexate Allergy (Verified 03/01/19 16:52) methylprednisolone Allergy (Verified 03/01/19 16:52) metoclopramide [From Reglan] Allergy (Verified 03/01/19 16:52) oxycodone Allergy (Verified 03/01/19 16:52) Sulfa (Sulfonamide Antibiotics) [SULFA] Allergy (Verified 03/01/19 16:52) - Review of Systems ROS: No change since H&P - Vital Signs and I&O's Vital Signs: Temperature 97.8 F Pulse Rate 93 Respiratory Rate 21 Blood Pressure [Right Arm] 109/59 Blood Pressure 95/51 O2 Sat by Pulse Oximetry 100 Intake and Output: Intake & Output 04/21/19 04/22/19 04/23/19 04/24/19 11:59 11:59 11:59 11:59 Intake Total 3595 / 3595 3181 / 3181 3742 / 3742 570 / 570 Output Total 1250 / 1250 2450 / 2450 900 / 900 2 / 2 Balance 2345 / 2345 731 / 731 2842 / 2842 568 / 568 - Physical Exam Oriented: Normal Eyes: Normal Ear: Normal Nose: Normal Throat: Normal Respiratory: Generalized, Diminished Cardiovascular: Normal : Normal Auscultation: Bowel Sounds: Normal Tenderness: Normal Skin: Normal Musculoskeletal: Normal Psychiatric: Other (LETHARGIC ) Mood Description: Flat Affect: Flat Speech Pattern: Aphasic - Laboratory and Diagnostics Result Diagrams: 04/23/19 04:16 04/23/19 04:16 Labs: Laboratory WBC 5.2 X10^3/uL (3.6-10.0) 04/23/19 04:16 RBC 3.47 X10^6/uL (3.5-5.4) L 04/23/19 04:16 Hgb 10.9 g/dL (12.0-16.0) L 04/23/19 04:16 Hct 32.1 % (36.0-47.0) L 04/23/19 04:16 MCV 92.6 fL (80.0-100.0) 04/23/19 04:16 MCH 31.4 pg (27.0-34.0) 04/23/19 04:16 MCHC 33.9 g/dL (33.0-35.0) 04/23/19 04:16 RDW 14.1 % (11.6-16.5) 04/23/19 04:16 Plt Count 159 X10^3/uL (150.0-450.0) 04/23/19 04:16 MPV 9.5 fL (7.4-11.0) 04/23/19 04:16 Neut % (Auto) 49.3 % (42.0-75.0) 04/23/19 04:16 Lymph % (Auto) 35.4 % (21.0-51.0) 04/23/19 04:16 [place] % (Auto) 10.3 % (0.0-13.0) 04/23/19 04:16 Eos % (Auto) 4.3 % (0.9-2.9) H 04/23/19 04:16 Baso % (Auto) 0.7 % (0.2-1.0) 04/23/19 04:16 Neut # (Auto) 2.6 x10^3/uL (2.2-4.8) 04/23/19 04:16 Lymph # (Auto) 1.9 X10^3/uL (1.3-2.9) 04/23/19 04:16 [place] # (Auto) 0.5 x10^3/uL (0.3-0.8) 04/23/19 04:16 Eos # (Auto) 0.2 x10^3/uL (0.0-0.2) 04/23/19 04:16 Baso # (Auto) 0.0 X10^3/uL (0.0-0.1) 04/23/19 04:16 Absolute Nucleated RBC 0.1 /100WBC 04/23/19 04:16 Sodium 139 mmol/L (136-145) 04/23/19 04:16 Corrected Sodium TNP 04/23/19 04:16 Potassium 3.8 mmol/L (3.5-5.1) 04/23/19 04:16 Chloride 107 mmol/L (98-107) 04/23/19 04:16 Carbon Dioxide 21.7 mmol/L (21-32) 04/23/19 04:16 BUN 16 mg/dL (7-18) 04/23/19 04:16 Creatinine 0.59 mg/dL (0.55-1.02) 04/23/19 04:16 Est GFR (MDRD) Af Amer > 60 (>60) 04/23/19 04:16 Est GFR (MDRD) Non-Af > 60 (>60) 04/23/19 04:16 Glucose 102 mg/dL (65-99) H 04/23/19 04:16 Calcium 8.8 mg/dL (8.5-10.1) 04/23/19 04:16 Corrected Calcium TNP 04/23/19 04:16 Magnesium 2.0 mg/dL (1.7-2.9) 04/21/19 04:51 Total Bilirubin 0.40 mg/dL (0.2-1.0) 04/23/19 04:16 AST 28 Units/L (15-37) 04/23/19 04:16 ALT 39 Units/L (12-78) 04/23/19 04:16 Alkaline Phosphatase 65 Units/L (46-116) 04/23/19 04:16 Total Protein 6.5 g/dL (6.4-8.2) 04/23/19 04:16 Albumin 3.6 g/dL (3.4-5.0) 04/23/19 04:16 Globulin 2.9 g/dL (2.5-4.5) 04/23/19 04:16 Albumin/Globulin Ratio 1.2 Ratio (1.1-2.1) 04/23/19 04:16 Specimen Type Catherized urine 04/18/19 19:45 Urine Color Yellow (YELLOW) 04/18/19 19:45 Urine Appearance Slightly hazy (CLEAR) 04/18/19 19:45 Urine pH 6.0 (5.0 - 8.0) 04/18/19 19:45 Ur Specific [place] 1.020 (1.000-1.030) 04/18/19 19:45 Urine Protein 1+ (NEGATIVE) 04/18/19 19:45 Urine Glucose (UA) Negative (NEGATIVE) 04/18/19 19:45 Urine Ketones 2+ (NEGATIVE) 04/18/19 19:45 Urine Occult Blood Negative (NEGATIVE) 04/18/19 19:45 Urine Nitrite Negative (NEGATIVE) 04/18/19 19:45 Urine Bilirubin Negative (NEGATIVE) 04/18/19 19:45 Urine Urobilinogen 1+ (NORMAL) 04/18/19 19:45 Ur Leukocyte Esterase 1+ (NEGATIVE) 04/18/19 19:45 Urine RBC None seen /HPF (0-3) 04/18/19 19:45 Urine WBC 0-2 /HPF (0-5) 04/18/19 19:45 Ur Squamous Epith Cells Moderate /HPF (NEGATIVE) 04/18/19 19:45 Amorphous Sediment 1+ /HPF (NEGATIVE) 04/18/19 19:45 Urine Bacteria Trace /HPF (NEGATIVE) 04/18/19 19:45 Ur Culture Indicated? No/not indicated 04/18/19 19:45 - Plan (1) Hypernatremia Status: Acute Plan: D5W WITH 20MEQ KCL AT 125 ML/HR, CONTINUE TO MONITOR (2) Altered mental status Status: Acute Qualifiers: Altered mental status type: transient alteration of awareness Qualified Code(s): R40.4 - Transient alteration of awareness
== END 2019-04-23 15:45 | DRG 641 ==
LOC: ICU 17:57
PROVIDERS: ADMIT Internal Medicine; ATTEND Internal Medicine
DX: I25.10 Atherosclerotic heart disease of native coronary artery without angina pectoris; R40.4 Transient alteration of awareness; F32.89 Other specified depressive episodes; Z79.899 Other long term (current) drug therapy; E87.0 Hyperosmolality and hypernatremia; I10 Essential (primary) hypertension; E78.2 Mixed hyperlipidemia; K21.9 Gastro-esophageal reflux disease without esophagitis
CPT/HCPCS: 36415; 80053; 81001; 83735; 84132; 85025; 92526; 92610; 94760; A4216; A4222; B4189; J1650; J2270; J3480; J3490; J7040; J7060; P9047; S0028